=== PATIENT | male | born 1960 | race Caucasian/White ===

== ENCOUNTER 2019-12-02 09:50 | Outpatient (CLI) | payer OTHER, SELFPAY ==
[2019-12-02 10:00] VITALS: PULSE 71; O2SAT 93
[2019-12-02 10:05] VITALS: PULSE 102; O2SAT 89
[2019-12-02 10:15] VITALS: PULSE 74; O2SAT 93
--- NOTE | 2019-12-02 10:34 | HOMEO2EVAL ---
Home Oxygen Evaluation RC: Home Oxygen (O2) Evaluation Start: 12/02/19 10:31 Freq: Status: Active Protocol: RPE Activity Type Activity Date Activity User E-Sign Co-Sign Detail Recorded Client Recorded Date Recorded By Document 12/02/19 10:00 DJO [id number] 12/02/19 10:34 DJO Document 12/02/19 10:05 DJO [id number] 12/02/19 10:34 DJO Document 12/02/19 10:15 [email or web address] [id number] 12/02/19 10:34 DJO 12/02/19 12/02/19 12/02/19 10:00 10:05 10:15 Home O2 Evaluation Test Phase Resting Exercise Resting Oxygen Delivery Room Air Room Air Room Air Pulse Oximetry (90-100 %) 93 89 L 93 Pulse Rate (60-100 beats/min) 71 102 H 74 Activity Tolerance Good Ambulation Distance (feet) 1,000 Treatment Charges O2 Evaluation
== END 2019-12-02 09:51 | disposition home or self-care (01) ==
LOC: ANHPFT 09:58
PROVIDERS: PCP Family Medicine; Visit Provider Nurse Practitioner Family
DX: R09.02 Hypoxemia (principal)
CPT/HCPCS: 94618

== ENCOUNTER 2020-09-07 15:13 | Outpatient (CLI) | payer OTHER, SELFPAY ==
--- NOTE | ~2020-09-07 | US_ITS ---
US retroperitoneal comp 09/07/2020 16:15 Procedure: Realtime transabdominal ultrasound of the kidneys and bladder. Indication: Chronic kidney disease stage III Comparison: No prior studies for comparison. Findings: Renal echotexture is normal bilaterally without hydronephrosis, contour deforming mass or r enal calculus. The right kidney measures 10.3 cm and left kidney measures 10.1 cm. Enlarged prostate gland. Bladder is unremarkable, although not well distended. Impression: 1: Unremarkable renal ultrasound. No stones, masses or hydronephrosis. 2: Enlarged prostate gland. Reviewed, dictated and finalized at location A. [facility] Impression: 1: Unremarkable renal ultrasound. No stones, masses or hydronephrosis. 2: Enlarged prostate gland.
== END 2020-09-07 15:14 | disposition home or self-care (01) ==
PROVIDERS: PCP Family Medicine; Visit Provider Internal Medicine Nephrology
DX: N18.32 Chronic kidney disease, stage 3b (principal); N40.0 Benign prostatic hyperplasia without lower urinary tract symptoms
CPT/HCPCS: 76770

== ENCOUNTER 2021-09-04 02:23 | Day surgery (SDC) | payer OTHER, SELFPAY ==
[2021-08-29 14:33] VITALS: BMI 34.7
[2021-09-04 12:21] VITALS: BP 166/92; PULSE 74; RESP 18; TEMP 36.3; O2SAT 96
[2021-09-04] MEDS: LACTATED RINGERS 1,000 ML 150 ML IV CONT (12:37)
--- NOTE | 2021-09-04 12:37 | WPDANESEPPF ---
Anes - Initial Pre Proc Eval Procedure: Operation Date: 09/04/21 13:00 Proposed Procedures p Screening Colonoscopy - Ad Hartman MD Date/Time: 09/04/21 12:37 Surgeon: Ad Hartman MD Pre Op Diagnosis: neoplasm screening Patient Data Age: 61 Gender: M Height: 1.83 m Weight: 113.7 kg Last Vital Signs Temp 36.3 C L 09/04/21 12:21 Pulse 74 09/04/21 12:21 Resp 18 09/04/21 12:21 BP 166/92 H 09/04/21 12:21 Pulse Ox 96 09/04/21 12:21 Allergies Allergy/AdvReac Type Severity Reaction Status Date / Time No Known Allergies Allergy Verified 09/04/21 12:18 Home Medications Medication Instructions Recorded Confirmed Type apixaban 5 mg tablet 5 mg PO BID 07/28/20 08/29/21 History aspirin 81 mg tablet,delayed 81 mg PO DAILY 07/28/20 08/29/21 History release fenofibrate 160 mg tablet 160 mg PO DAILY 07/28/20 08/29/21 History lisinopril 20 mg tablet 20 mg PO DAILY 07/28/20 08/29/21 History loratadine 10 mg capsule 10 mg PO DAILY 07/28/20 08/29/21 History pantoprazole 40 mg tablet,delayed 40 mg PO QAM 07/28/20 08/29/21 History release sildenafil 100 mg tablet See Rx Instructions .ROUTE 08/30/20 08/29/21 Rx .COMPLEX PRN #30 tablet fluticasone fur. 100 mcg-umeclid 1 inh INHALATION DAILY #60 ea 03/29/21 08/29/21 Rx 62.5 mcg-vilant 25 mcg inhalat.powder atorvastatin 40 mg tablet 40 mg PO QHS 07/18/21 08/29/21 History evolocumab 140 mg/mL subcutaneous 140 mg SUBCUT .[id number] ml 07/18/21 08/29/21 History syringe metoprolol succinate 100 mg 100 mg PO DAILY 07/18/21 08/29/21 History tablet,extended release 24 hr triamcinolone acetonide 0.1 % 1 applic TOPICAL BID #80 gm 07/18/21 08/29/21 Rx topical cream albuterol sulfate 90 mcg/actuation 1 - 2 inh INHALATION Q4-6H PRN 90 08/28/21 08/29/21 Rx aerosol inhaler Days #25.5 g Patient hx anesthesia problems: none Family hx anesthesia problems: none Results Review: All pre-operative results and documents have been reviewed as part of the pre-operative evaluation. [facility] Past Medical History Medical History COPD (chronic obstructive pulmonary disease) Heart abnormality Hypersomnia Hypoxia Non-small cell lung cancer Tobacco abuse Surgical History Surgical History History of cardiac radiofrequency ablation (RFA) 2020 History of coronary artery stent placement Family History Family History Mother Family history of cardiovascular disease Grandparent Cerebrovascular accident Sibling Cerebrovascular accident Family history of gynecological problem Father Patient's father is in good health Other Family history of anemia Hypertension Social History Social History Smoking packs per day: 1.25 Smoking cigarettes per day: 25.0 Years smoked: 40 Smoking pack-years: 50.00 Smoking status: Former smoker Tobacco type: cigarettes Second hand tobacco smoke exposure: No Smoking end date: 03/23/18 Alcohol intake: current Drinks per week: 1 Substance use: never Substance use type: does not use Living arrangements: with family Gender identity (if verbalized by the patient): Male Spiritual care concerns: No Agree to blood products: Yes Anes - Eval Final PreProcedure Day of Procedure 09/04/21 12:37 Patient weight: obese Heart: regular rate and rhythm Lungs: clear to auscultation Airway: Mallampati scale class II Neurological: alert and oriented Last oral intake: >/= 8 hours ASA classification: IV Emergent: no Anesthetic plan: proceed Anesthesia type and monitoring: general GIVS and standard monitoring Results Review: All pre-operative results and documents have been reviewed as part of the pre-operative evaluation. Informed Consent: The patient
--- NOTE | 2021-09-04 12:49 | PM.HPGS ---
History of Present Illness History of Present Illness Consent: Risks, benefits, and alternatives have been discussed and questions answered. Patient agrees to proceed with procedure. Chief complaint: neoplasm screening Narrative: Scott Zee is a 61 year old male here for first screening colonoscopy Review of Systems Constitutional: Constitutional: Denies headache(s) and Denies weakness Eyes: Eyes: Denies blurry vision ENT: Reports Normal hearing present, Denies headache(s) and Denies neck pain Cardiovascular: Cardiovascular: Denies chest pain and Denies dyspnea Respiratory: Respiratory: Denies dyspnea Gastrointestinal: Gastrointestinal: Reports no additional gastrointestinal complaints Genitourinary: Genitourinary: Denies dysuria Musculoskeletal: Musculoskeletal: Denies neck pain Integumentary/Breasts: Skin/Breast: Denies dry skin Neurologic: Reports Normal hearing present, Denies headache(s) and Denies weakness Psychiatric: Psychiatric: Denies anxiety Endocrine: Endocrine: Denies change in body appearance Hematologic/Lymphatic: Hematologic/Lymphatic: Denies easy bleeding Allergic/Immunologic: Allergic/Immunologic: Denies urticaria PMFSH Past Medical History Medical History COPD (chronic obstructive pulmonary disease) Heart abnormality Hypersomnia Hypoxia Non-small cell lung cancer Tobacco abuse Surgical History Surgical History History of cardiac radiofrequency ablation (RFA) 2020 History of coronary artery stent placement Family History Family History Mother Family history of cardiovascular disease Grandparent Cerebrovascular accident Sibling Cerebrovascular accident Family history of gynecological problem Father Patient's father is in good health Other Family history of anemia Hypertension Social History Social History Smoking packs per day: 1.25 Smoking cigarettes per day: 25.0 Years smoked: 40 Smoking pack-years: 50.00 Smoking status: Former smoker Tobacco type: cigarettes Second hand tobacco smoke exposure: No Smoking end date: 03/23/18 Alcohol intake: current Drinks per week: 1 Substance use: never Substance use type: does not use Living arrangements: with family Gender identity (if verbalized by the patient): Male Spiritual care concerns: No Agree to blood products: Yes Meds Home Medications and Allergies Home Medications Medication Instructions Recorded Confirmed Type apixaban 5 mg tablet 5 mg PO BID 07/28/20 08/29/21 History aspirin 81 mg tablet,delayed 81 mg PO DAILY 07/28/20 08/29/21 History release fenofibrate 160 mg tablet 160 mg PO DAILY 07/28/20 08/29/21 History lisinopril 20 mg tablet 20 mg PO DAILY 07/28/20 08/29/21 History loratadine 10 mg capsule 10 mg PO DAILY 07/28/20 08/29/21 History pantoprazole 40 mg tablet,delayed 40 mg PO QAM 07/28/20 08/29/21 History release sildenafil 100 mg tablet See Rx Instructions .ROUTE 08/30/20 08/29/21 Rx .COMPLEX PRN #30 tablet fluticasone fur. 100 mcg-umeclid 1 inh INHALATION DAILY #60 ea 03/29/21 08/29/21 Rx 62.5 mcg-vilant 25 mcg inhalat.powder atorvastatin 40 mg tablet 40 mg PO QHS 07/18/21 08/29/21 History evolocumab 140 mg/mL subcutaneous 140 mg SUBCUT .[id number] ml 07/18/21 08/29/21 History syringe metoprolol succinate 100 mg 100 mg PO DAILY 07/18/21 08/29/21 History tablet,extended release 24 hr triamcinolone acetonide 0.1 % 1 applic TOPICAL BID #80 gm 07/18/21 08/29/21 Rx topical cream albuterol sulfate 90 mcg/actuation 1 - 2 inh INHALATION Q4-6H PRN 90 08/28/21 08/29/21 Rx aerosol inhaler Days #25.5 g Allergies Allergy/AdvReac Type Severity Reaction Status Date / Time No Known Allergies Allergy Verified 09/04/21 12:18
[2021-09-04 13:11] VITALS: BP 133/81; PULSE 66; RESP 11; O2SAT 97
[2021-09-04 13:21] VITALS: BP 116/80; PULSE 69; RESP 20; O2SAT 95
[2021-09-04 13:31] VITALS: BP 151/95; PULSE 63; RESP 21; O2SAT 96
== END 2021-09-04 13:41 | disposition home or self-care (01) ==
PROVIDERS: PCP Family Medicine; Visit Provider Internal Medicine Gastroenterology
PROC: 0DJD8ZZ Inspection of Lower Intestinal Tract, Via Natural or Artificial Opening Endoscopic (ICD-10-PCS; CPT 45378; principal; 2021-09-04 13:00)
DX: Z12.11 Encounter for screening for malignant neoplasm of colon (principal); D12.2 Benign neoplasm of ascending colon; D12.3 Benign neoplasm of transverse colon; K57.30 Diverticulosis of large intestine without perforation or abscess without bleeding; K64.8 Other hemorrhoids; C34.90 Malignant neoplasm of unspecified part of unspecified bronchus or lung; J44.9 Chronic obstructive pulmonary disease, unspecified; R09.02 Hypoxemia; Z95.5 Presence of coronary angioplasty implant and graft; Z87.891 Personal history of nicotine dependence
CPT/HCPCS: 45385; 88305; J2704; J7120

== ENCOUNTER 2023-07-07 13:03 | Emergency (ER) | payer OTHER, SELFPAY ==
--- NOTE | ~2023-07-07 | CT_ITS ---
EXAMINATION: CT facial bones w con DATE: 07/07/2023 15:30 INDICATION: Right forehead swelling TECHNIQUE: Computed tomography (CT) of the facial bones and maxillofacial region was performed with 7 5 mL Omnipaque-350 intravenous contrast. Sagittal and coronal reconstructions were obtained. Automate d exposure control and iterative reconstruction technique were employed. The dose-length product was 631.58 mGy-cm. COMPARISON: None. FINDINGS: Right frontal scalp soft tissue swelling with increased density in the deeper tissues suggesting a he matoma. No fracture of the visualized calvarium or of the maxillofacial bones. No peripherally enhanc ing abscess. Changes of bilateral intraocular lens replacement. Orbits are otherwise normal. Mucosal thickening in the right ethmoid and bilateral frontal sinuses. The maxillary teeth are all absent as nearly all of the mandibular molars and premolars. Is a small residual apical fragment of the left fi rst mandibular premolar with surrounding periapical lucency. The remaining mandibular incisors and ca nines demonstrate multiple dental caries. Atherosclerotic calcification without hemodynamically signi ficant stenosis at the bilateral carotid siphons. Left vertebral artery is dominant. Visualized porti on of brain is unremarkable. IMPRESSION: 1. Focal soft tissue swelling involving the deep right frontal scalp suggesting a posttraumatic hemat brooks. Correlate for history of recent trauma. No fracture. Reviewed, dictated and finalized at location A. IMPRESSION: 1. Focal soft tissue swelling involving the deep right frontal scalp suggesting a posttraumatic hematoma. Correlate for history of recent trauma. No fracture.
[2023-07-07 13:12] VITALS: BP 171/87; PULSE 88; RESP 20; TEMP 36.3; O2SAT 96
[2023-07-07 14:33] LABS: Basophils Percent Auto 0.4 % (0.2-1.2); Eosinophils Absolute Auto 0.1 K/mm3 (0-0.3); Eosinophils Percent Auto 0.7 % (0-4.4); Hematocrit 46.6 % (42.0-52.0); Immature Granulocyte Absolute 0.06 K/mm3 (0.00-0.031); Immature Granulocyte Percent A 0.5 % (0-0.5); Lymphocytes Absolute Auto 1.11 K/mm3 (0.9-3.2); Lymphocytes Percent Auto 10.1 % (18.3-44.2); Mean Corpuscular HGB Conc 32.2 g/dl (32-36); Mean Corpuscular Hemoglobin 30.8 pg (26-34); Mean Corpuscular Volume 95.7 fl (80-100); Mean Platelet Volume 9.9 fl (7.4-10.4); Monocytes Absolute Auto 0.8 K/mm3 (0.1-0.6); Monocytes Percent Auto 7.6 % (2.6-8.5); Neutrophils Absolute Auto 8.9 K/mm3 (1.3-6.7); Neutrophils Percent Auto 80.7 % (45.5-73.1); Platelet Count Result 213 k/mm3 (150-375); Red Blood Count 4.87 M/mm3 (4.6-6.20); Red Cell Distribution Width 12.6 % (11.5-14.5)
[2023-07-07 14:45] LABS: INR 1.4; Prothrombin Time 17.8 Seconds (11.1-14.7)
[2023-07-07 14:46] LABS: Partial Thromboplastin Time 32.4 SECONDS (22.3-36.8)
[2023-07-07 15:03] LABS: Alanine Aminotransferase 23 U/L (6-50); Albumin Level 4.1 g/dL (3.5-5.1); Alkaline Phosphatase 103 U/L (38-126); Anion Gap 10 mmol/L (8-16); Aspartate Amino Transferase 27 U/L (17-59); Bilirubin,Total 1.3 mg/dL (0.2-1.3); Blood Urea Nitrogen 16 mg/dL (9-20); Calcium 9.4 mg/dL (8.4-10.2); Carbon Dioxide 25 mmol/L (22-30); Chloride 97 mmol/L (98-107); Estimated CRCL calculation 71 ml/min; Estimated Glomerular Filt Rate > 60; Glucose 347 mg/dL (65-110); Potassium 4.6 mmol/L (3.4-5.0); Sodium 132 mmol/L (137-145)
--- NOTE | 2023-07-07 15:22 | ED.SKABFB ---
HPI - Skin/Abscess/Foreign Bdy General Chief complaint: Skin/Abscess/Foreign Body Stated complaint: abscess Time Seen by Provider: 07/07/23 13:45 Source: patient and RN notes reviewed Mode of arrival: ambulatory Limitations: no limitations History of Present Illness HPI narrative: This is a 63 year old male who presents for evaluation of right forehead swelling. He states he noticed a pustule to his right forehead 1 week ago. He also reports small amount of inermittent pus drainage. He developed right forehead swelling and periorbital swelling. He reports his periorbital swelling has improved but his left forehead is still swollen and painful to touch. He denies trauma, fever, chills, nausea or vomiting. Related Data Home Medications Medication Instructions Recorded Confirmed apixaban 5 mg tablet 5 mg PO BID 07/28/20 01/24/23 aspirin 81 mg tablet,delayed 81 mg PO DAILY 07/28/20 01/24/23 release fenofibrate 160 mg tablet 160 mg PO DAILY 07/28/20 01/24/23 lisinopril 20 mg tablet 20 mg PO DAILY 07/28/20 01/24/23 loratadine 10 mg capsule 10 mg PO DAILY 07/28/20 01/24/23 pantoprazole 40 mg tablet,delayed 40 mg PO QAM 07/28/20 01/24/23 release atorvastatin 40 mg tablet 40 mg PO QHS 07/18/21 01/24/23 evolocumab 140 mg/mL subcutaneous 140 mg subcut .[id number] 07/18/21 01/24/23 syringe (Repatha Syringe) metoprolol succinate 100 mg 100 mg PO DAILY 07/18/21 01/24/23 tablet,extended release 24 hr amlodipine 10 mg tablet 10 mg PO DAILY 08/27/22 01/24/23 Allergies Allergy/AdvReac Type Severity Reaction Status Date / Time No Known Allergies Allergy Verified 07/07/23 13:20 Review of Systems Review of Systems: All systems reviewed & are unremarkable except as noted in HPI and below PMFSH Past Medical History Medical History (Updated 07/07/23 @ 18:44 by Willa Reilly MD) Atrial fibrillation CKD (chronic kidney disease) COPD (chronic obstructive pulmonary disease) Heart abnormality Hypersomnia Hypoxia Non-small cell lung cancer Tobacco abuse Surgical History Surgical History History of cardiac radiofrequency ablation (RFA) 2020 History of coronary artery stent placement Family History Family History Mother Family history of cardiovascular disease Grandparent Cerebrovascular accident Sibling Cerebrovascular accident Family history of gynecological problem Father Patient's father is in good health Other Family history of anemia Hypertension Social History Social History Smoking packs per day: 1.25 Smoking cigarettes per day: 25.0 Years smoked: 40 Smoking pack-years: 50.00 Smoking status: Former smoker Tobacco type: cigarettes Second hand tobacco smoke exposure: No Smoking end date: 03/23/18 Alcohol intake: current Drinks per week: 1 Substance use: never Substance use type: does not use Living arrangements: with family Occupation/Education: occupation Gender identity (if verbalized by the patient): Male Spiritual care concerns: No Agree to blood products: Yes Exam Const: General: alert Nutritional Appearance: well nourished Orientation/consciousness: patient oriented x3 Limitations: no limitations HENMT: Face/Nose/Sinus: Normal external nose present Mouth: Yes Normal oral and palatal mucosa present, Yes lip normal and Yes moist mucous membranes Course Reevaluation(s) Reevaluation #1: I Discussed with patient that he was found to have hyperglycemia suggesting diabetes. I discussed I Would start medication and he should adjust diet. He will need to follow up with primary care provider regarding diabetes. I performed I and D to his abscess. Eh was given given clindamycin prior to leaving. He was given return precautions. Date: 07/07/23 Time: 18:37 Vital Signs Vital signs: Vital
[2023-07-07 15:50] VITALS: BP 152/84; PULSE 75; RESP 19; O2SAT 96
[2023-07-07] MEDS: HYDROmorphone HCL INJ (*CRX) 1 MG/ML SYR IM (17:11)
[2023-07-07] MEDS: ONDANSETRON HCL ODT 4 MG TABLET PO (17:11)
[2023-07-07] MEDS: LIDO 1%/EPINEPHRINE 1:100,000 50 ML VIAL (17:11)
[2023-07-07 18:00] VITALS: BP 143/80; PULSE 81; RESP 14; O2SAT 93
[2023-07-07] MEDS: CLINDAMYCIN HCL 150 MG CAP 600 MG PO (18:26)
[2023-07-07] MEDS: HYDROcodone/acetaminophen (*CRX) 5-325 MG TABLET 1 TAB PO (18:27)
== END 2023-07-07 18:52 | disposition home or self-care (01) ==
PROVIDERS: Emergency Provider General Practice
DX: L02.01 Cutaneous abscess of face (principal); R73.9 Hyperglycemia, unspecified; I48.91 Unspecified atrial fibrillation; N18.9 Chronic kidney disease, unspecified; J44.9 Chronic obstructive pulmonary disease, unspecified; Z85.118 Personal history of other malignant neoplasm of bronchus and lung
CPT/HCPCS: 10061; 36415; 70487; 80053; 85025; 85610; 85730; 96372; 99284; A9270; J1170; Q9967

== ENCOUNTER 2025-09-07 01:25 | Inpatient (IN) | payer OTHER, SELFPAY ==
[2025-09-07] VITALS (45 sets, daily range): BP systolic 129–191; BP diastolic 71–112; PULSE 62–105; RESP 16–35; TEMP 36.3–37.1; O2SAT 89–98; BMI 29.7
--- NOTE | 2025-09-07 | ECHO_ITS ---
Patient Info Name: Scott Zee Age: 65 years : 1960 Gender: Male Ht: 72 in Wt: 215 lbs BSA: 2.25 m2 HR: 78 bpm BP: 155 / 88 mmHg Heart Rhythm: Sinus Rhythm Technical Quality: Good Exam Date: 09/07/2025 8:52 AM Patient Status: I Admit Date: 09/07/2025 Exam Type: CA echo dop color flow w con Complete two-dimensional, color flow and Doppler transthoracic echocardiogram is performed with contrast to opacify the left ventricle and to improve the deliniation of the left ventricle endocardial borders. Staff Referring Physician: Audra Castle MD Cheesemaker: Ananda Perales III Attending Provider: Ian Roy Contrast/Agitated Saline Contrast/Ag. Saline: Definity Amount: 2.00 ml Administered By: Ananda Perales III Existing IV Access: Yes IV Access Condition: patent with no signs of infiltration Summary 1. Left ventricular hypertrophy with normal LV dimension. 2. Mildly depressed systolic function with akinesis of the inferior wall and hypokinesis of the lateral wall. 3. Global ejection fraction visually estimates to be 40-45%. 4. Sclerotic aortic valve which is not functionally stenotic. 5. Definity contrast injected to improve image quality. Left Ventricle Left ventricular chamber dimension is normal. Left ventricular systolic function is mildly reduced, estimated at 40-45. The left ventricular diastolic function is grade I diastolic dysfunction. Right Ventricle Right ventricular chamber dimension is normal. Left Atria Left atrial chamber dimension is normal. Right Atria Right atrial chamber dimension is normal. Aortic Valve The aortic valve is trileaflet. There is mild aortic valve sclerosis. Pulmonic Valve The pulmonic valve is not well visualized. Mitral Valve The mitral valve has normal leaflets. Tricuspid Valve The tricuspid valve leaflets are normal. Pericardium/Pleural The pericardium appears normal. Aorta The aortic root size at the sinus of Valsalva is normal. Left Ventricular Outflow Tract Name Value Normal LVOT 2D LVOT Diameter 2.4 cm LVOT Doppler LVOT Peak Velocity 104 cm/s LVOT Peak Gradient 4 mmHg LVOT Mean Gradient 2 mmHg LVOT VTI 19 cm LVOT VTI/AV VTI Ratio 0.7 LVOT Stroke Volume 86 ml LVOT CO 7.1 l/min LVOT CI 3.1 l/min/m2 Pulmonic Valve Name Value Normal PV Doppler PV Peak Velocity 99 cm/s PV Peak Gradient 4 mmHg PV Mean Gradient 2 mmHg Mitral Valve Name Value Normal MV Doppler MV Peak Gradient 3 mmHg MV Mean Gradient 2 mmHg MV Area (Cont Eq VTI) 3.8 cm2 MV Diastolic Function MV E Peak Velocity 90 cm/s MV A Peak Velocity 67 cm/s MV E/A 1.3 MV Decel Time (PW) 156 ms MV Annular TDI MV E/e' (Septal) 15.4 MV E/e' (Lateral) 11.6 MV E/e' (Average) 13.5 Tricuspid Valve Name Value Normal TV Annular TDI TV Lateral Zuly s' Velocity 12.6 cm/s >=9.5 Aortic Valve Name Value Normal AV Doppler AV Peak Velocity 152 cm/s AV Peak Gradient 9 mmHg AV Mean Gradient 4 mmHg AV VTI 26 cm AV Area (Cont Eq VTI) 3.3 cm2 >=3.0 AV Area (Cont Eq Lalo) 3.1 cm2 AV DI (Lalo) 0.68 AV Regurgitation 2D LVOT Area 4.5 cm2 Ventricles Name Value Normal LV Dimensions 2D/MM IVS Diastolic Thickness (2D) 1.5 cm 0.6-1.0 LVID Diastole (2D) 5.1 cm 4.2-5.8 LVIW Diastolic Thickness (2D) 1.3 cm 0.6-1.0 LVID Systole (2D) 4.1 cm 2.5-4.0 LVOT Diameter 2.4 cm LV Mass (2D Cubed) 296.12 g 88.00-224.00 LV Mass Index (2D Cubed) 132 g/m2 49-115 Relative Wall Thickness (2D) 0.52 <=0.42 LV Fractional Shortening/Ejection Fraction 2D/MM LV Fractional Shortening (2D) 19 % 25-43 LV EF (2D Teichholz) 39 % LV Diastolic Volume (4C MOD) 141 ml LV EF (4C MOD) 42 % LV Diastolic Volume (2C MOD) 154 ml LV EF (2C MOD) 31 % LV Diastolic Volume (BP MOD) 151 ml 62-150 LV Diastolic Volume Index (BP MOD) 67 ml/m2 34-74 LV Systolic Volume (BP MOD) 98 ml 21-61 LV Systolic Volume Index (BP MOD) 44 ml/m2 11-31 LV EF (BP MOD) 35 % 52-72 LV Diastolic Length (4C) 8.3 cm LV Systolic Length (4C) 7.1 cm LV Stroke Volume (4C MOD) 60 ml Atria Name Value Normal LA Dimensions LA Volume (4C A-L) 88 ml LA Volume (BP A-L) 89 ml RA Dimensions RA Systolic Major Loving Length (4C) 5.9 cm 2.1-2.7 RA Area (4C) 20.7 cm2 <=18.0 Report Signatures
--- NOTE | ~2025-09-07 | US_ITS ---
ULTRASOUND ABDOMEN LIMITED (RIGHT UPPER QUADRANT) Clinical History: elevated LFTs Comparison: CT chest abdomen pelvis earlier same day Technique: Right upper quadrant sonography Findings: Liver: Enlarged. Echogenic. No intrahepatic biliary ductal dilatation. Normal hepatopedal flow main portal vein. Common Duct: 10 mm. Gallbladder: Stones. No wall thickening. No pericholecystic fluid. Technologist worksheet does not state if sonographic Santiago's sign exists. Pancreas: Obscured by bowel gas. IMPRESSION: 1. Hepatomegaly, with steatosis. 2. Gallstones. Reviewed, dictated and finalized at location R. PROCESSING OPERATOR
--- NOTE | ~2025-09-07 | XR_ITS ---
EXAMINATION: XR chest 1V portable DATE: 09/07/2025 03:00 INDICATION: Short of breath TECHNIQUE: A single frontal view of the chest was obtained. COMPARISON: June 04, 2019 FINDINGS: Complete opacification of the left hemithorax suggests very large effusion. Infection could be present. Right lung is marginally inflated but appears clear. Heart shadow is obscured. IMPRESSION: Large left-sided pleural effusion. Reviewed, dictated and finalized at location A. BRAKE OPERATOR
--- NOTE | ~2025-09-07 | XR_ITS ---
EXAMINATION: XR chest 1V portable DATE: 09/08/2025 07:52 INDICATION: Sepsis TECHNIQUE: A single frontal view of the chest was obtained. COMPARISON: Yesterday's chest x-ray FINDINGS: Complete opacification of the left lung field unchanged. The right lung remains clear. Heart shadow obscured. No pneumothorax or subphrenic free air seen. IMPRESSION: 1. No gross interval change from yesterday. Complete opacification of the left hemithorax. Reviewed, dictated and finalized at location A. OO TECHNICIAN
--- NOTE | ~2025-09-07 | MR_ITS ---
EXAMINATION: MR MRCP wo/w con/w 3D wo ind DATE: 09/09/2025 13:25 INDICATION: Rule out choledocholithiasis TECHNIQUE: Magnetic resonance imaging (MRI) of the abdomen was performed with and without intravenous contrast. Sequences included coronal T2-weighted FS FSE, coronal T2-weighted FSE, axial T1-weighted LAVA, coronal FS FIESTA, axial dual- echo T1-weighted SPGR, coronal lava-FLEX, sagittal T2-weighted FSE, axial T2- weighted FSE, and axial DWI. Thick-slab T2-weighted FSE images were obtained for magnetic resonance cholangiopancreatography (MRCP). Maximum intensity projection 3-D reconstructions of the volumetric data were created by the technologist. Postcontrast sequences included coronal LAVA-flex and time course of axial T1- weighted LAVA. COMPARISON: CT exam from September 07. FINDINGS: Fatty liver changes present as well as mild enlargement liver. The liver measures 22.5 cm in the cephalocaudal dimension. Numerous gallstones are seen within the gallbladder. No gross wall thickening or pericholecystic fluid. The common bile duct is within normal limits measuring 6 mm. The pancreatic duct measures up to 2 mm, also normal in size. On image 30 series 6, a tiny filling defect appears to be present within the intrapancreatic portion of the common bile duct. This may also be seen on image 16 series 8. See also images 63 through 70 of series 11, the filling defect is seen on MRCP images within the intrapancreatic portion of the common bile duct just above the ampulla. This measures about 6 mm. Mild infiltrative or inflammatory appearing changes about the pancreas present. No discrete pancreatic lesion or mass seen. No pseudocyst or drainable fluid collection seen. Simple appearing left renal cyst. The duodenum sweeps to the left of midline. IMPRESSION: 1. Findings above are suggestive of approximately 6 mm size stone in the distal common bile duct just before the ampulla. 2. Findings about the pancreas consistent with mild pancreatitis. No discrete pancreatic lesion or mass seen. 3. Hepatomegaly with fatty liver changes. 4. Other findings as above. Reviewed, dictated and finalized at location A. CATEGORICAL PRESCHOOL TEACHER IMPRESSION: 1. Findings above are suggestive of approximately 6 mm size stone in the distal common bile duct just before the ampulla. 2. Findings about the pancreas consistent with mild pancreatitis. No discrete p ancreatic lesion or mass seen. 3. Hepatomegaly with fatty liver changes. 4. Other findings as above.
--- NOTE | ~2025-09-07 | CT_ITS ---
EXAMINATION: CTA chest abdomen pelvis DATE: 09/07/2025 03:24 INDICATION: Abdominal pain and distention. TECHNIQUE: Computed tomographic angiography (CTA) of the chest, abdomen, and pelvis was performed with 100 mL Omnipaque-350 intravenous contrast. Automated exposure control and iterative reconstruction technique were employed. The dose- length product was 923.95 mGy-cm. Maximum intensity projection 3D-r econstructions of the aorta and other arteries were constructed by the technologist on a separate workstation. COMPARISON: Chest CT 05/14/2019 FINDINGS: CHEST CTA: There is mild emphysema. There is mild atelectasis in right lung. There is complete collapse of left lung. There is a small left pleural effusion with pleural thickening. There is no pulmonary embolus. There is mild aortic atherosclerosis. There is moderate thoracic spondylosis. There is mild chronic a nterior wedging of multiple lower thoracic vertebral bodies. ABDOMEN AND PELVIS CTA: The liver and spleen are normal. There are gallstones in the gallbladder, which is normal in size. There is edema in the head of the pancreas. There is fat stranding and small volume of free fluid in the retroperitoneum, consistent with acute interstitial pancreatitis. The adrenal glands are normal. There is cortical thinning of the kidneys. There is a 14 mm stone in left kidney. The prostate is moderately enlarged. There is diverticulosis of the colon without evidence of diverticulitis. The appendix is normal. 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 There is no significant stenosis of superior mesenteric artery, the renal arteries, or inferior mesenteric artery. There is a stent in left common iliac artery with moderate intrastent stenosis. There are no pathologically enlarged lymph nodes. There are chronic bilateral L5 pars defects. There is 4 mm anterolisthesis of L5 on S1. There is mild lumbar spondylosis. IMPRESSION: 1. Complete collapse of left lung. 2. Small left pleural effusion with pleural thickening. 3. Acute interstitial pancreatitis. 4. Severe stenosis of celiac axis. 5. Stent in left common iliac artery with moderate intrastent stenosis. Reviewed, dictated and finalized at location E. BENDING MACHINE OPERATOR
--- NOTE | 2025-09-07 02:25 | ECG_ITS ---
Test Date: 2025-09-07 02:30:22 Measurements Intervals [place] Rate: 74 P: 73 ND: 140 QRS: -17 QRSD: 101 T: 85 QT: 360 QTc: 401 Interpretive Statements SINUS RHYTHM WITH OCCASIONAL SUPRAVENTRICULAR PREMATURE COMPLEXES POSSIBLE ANTERIOR MYOCARDIAL INFARCTION , OF INDETERMINATE AGE INFERIOR ST ELEVATION MYOCARDIAL INFARCT, PROBABLY RECENT RECIPROCAL ST DEPRESSION IN HIGH LATERAL LEADS BASELINE ARTIFACT- I, II, AVR, AVL, AVF, V5-V6 ABNORMAL ECG No previous ECG available for comparison Electronically Signed On 09-07-2025 06:17:52 [employer] ADMINISTRATOR by Jt Post D.O.
--- NOTE | 2025-09-07 02:47 | ECG_ITS ---
Test Date: 2025-09-07 02:43:13 Measurements Intervals [place] Rate: 87 P: 6 UT: 154 QRS: 1 QRSD: 103 T: -60 QT: 349 QTc: 421 Interpretive Statements SINUS RHYTHM INFERIOR INFARCT, PROBABLY RECENT ST-T WAVE ABNORMALITY IN HIGH LATERAL LEADS- CONSIDER ISCHEMIA BASELINE ARTIFACT- I, II, III, AVR, AVL, AVF, V1-V6 ABNORMAL ECG Compared to ECG 09/07/2025 02:30:22 NO SIGNIFICANT CHANGE Electronically Signed On 09-07-2025 06:19:18 AVID EDITOR by Jt Post D.O.
[2025-09-07 02:53] LABS: Hematocrit 52.5 % (42.0-52.0); Hemoglobin 16.8 g/dL (14.0-18.0); Immature Granulocyte Percent A 1.3 % (0-0.5); Lymphocytes Absolute Auto 1.40 K/mm3 (0.9-3.2); Mean Corpuscular HGB Conc 32.0 g/dl (32-36); Mean Corpuscular Hemoglobin 29.5 pg (26-34); Mean Corpuscular Volume 92.3 fl (80-100); Nucleated Red Blood Cells Absolute Auto 0.000 K/mm3 (0.0-0.012); Nucleated Red Blood Cells Perc 0.0 % (0.0-0.2); Platelet Count Result 343 k/mm3 (150-375); Red Blood Count 5.69 M/mm3 (4.6-6.20); White Blood Count 28.0 K/mm3 (4.5-10.0)
--- NOTE | 2025-09-07 02:55 | ED.ABDPAIN ---
HPI - Abdominal Pain General Chief Complaint: Nausea/Vomiting/Diarrhea Stated Complaint: Difficulty breathing Time Seen by Provider: 09/07/25 02:43 History of Present Illness HPI narrative: 65-year-old male with a past medical history including lung cancer status post resection and chronic atelectasis of his left lung, history of coronary artery disease with 5 stents, CKD, hypertension. History of AFib on Eliquis b.i.d.. Patient presents to the emergency department today for complaints of lower abdominal bloating, gaseous abdominal pain in the lower quadrants and some shortness of breath that started today. He states that he is having some distension is lower abdominal regions but not having any difficulties with bowel movements and going to the bathroom without difficulty. He states that these have been going on for last several weeks and the difficulty in breathing is attributed to lying flat difficulties secondary to his abdominal distension causing pain. Denies any chest pain or back pain. No nauseousness presently but has vomited several times over last few weeks. Denies any leg swelling or any changes to his health recently with new medications or recent hospitalizations. Related Data Home Medications ?Medication ?Instructions ?Recorded ?Confirmed ?Last Taken ?Type apixaban 5 mg tablet 5 mg PO BID 07/28/20 08/27/25 09/01/21 History aspirin 81 mg tablet,delayed 81 mg PO DAILY 07/28/20 08/27/25 09/03/21 History release loratadine 10 mg capsule 10 mg PO DAILY 07/28/20 08/27/25 09/03/21 History pantoprazole 40 mg tablet,delayed 40 mg PO QAM 07/28/20 08/27/25 09/03/21 History release atorvastatin 40 mg tablet 40 mg PO QHS 07/18/21 08/27/25 09/03/21 History evolocumab 140 mg/mL subcutaneous 140 mg subcut .[id number] 07/18/21 08/27/25 Unknown History syringe (Repatha Syringe) metoprolol succinate 100 mg 100 mg PO DAILY 07/18/21 08/27/25 09/04/21 History tablet,extended release 24 hr amlodipine 10 mg tablet 10 mg PO DAILY 08/27/22 08/27/25 Unknown History empagliflozin 25 mg tablet 25 mg PO DAILY 08/21/23 08/27/25 Unknown History (Jardiance) lisinopril 40 mg tablet 40 mg PO DAILY 09/21/24 08/27/25 Unknown History Allergies Allergy/AdvReac Type Severity Reaction Status Date / Time No Known Allergies Allergy Verified 09/07/25 01:26 Review of Systems Review of Systems: As reviewed above in HPI All systems reviewed & are unremarkable except as noted in HPI and below [facility] Past Medical History Medical History (Updated 09/07/25 @ 06:14 by Kenneth Valerio MD) Atrial fibrillation CKD (chronic kidney disease) Heart abnormality Hypoxia Tobacco abuse Hypersomnia Non-small cell lung cancer COPD (chronic obstructive pulmonary disease) Surgical History Surgical History History of cardiac radiofrequency ablation (RFA) 2020 History of coronary artery stent placement Family History Family History Mother Family history of cardiovascular disease Grandparent Cerebrovascular accident Sibling Cerebrovascular accident Family history of gynecological problem Father Patient's father is in good health Other Family history of anemia Hypertension Social History Social History Social History: Caffeine-occasionally Smoking packs per day: 1.25 Smoking cigarettes per day: 25.0 Years smoked: 40 Smoking pack-years: 50.00 Smoking status: Former smoker Tobacco type: cigarettes Second hand tobacco smoke exposure: No Smoking end date: 03/23/18 Alcohol intake: current Drinks per week: 1 Alcohol use details: occasionally Substance use: never Substance use type: does not use Living arrangements: with family Occupation/Education: occupation Gender identity (if verbalized by the patient): Male Spiritual care concerns: No Agree to blood products: Yes Exam Narrative: GENERAL: overall well-appearing not any distress. Awake and answering all questions appropriately. HEAD: [Normocephalic, atraumatic.] EYES: [PERRLA and EOMI.] ENT: Nares clear, no rhinorrhea or epistaxis. Mucous membranes moist. NECK: Supple. CHEST: asymmetric breath sounds with clear right breath sounds, diminished left breath sounds. No wheezing. HEART: [Regular rate and rhythm]. No murmur heard. [Normal peripheral pulses.] ABDOMEN: Distended and tender lower abdominal examination without any rebound or guarding. No rigidity or peritonitis. No overlying skin discoloration EXTREMITIES: Normal range of motion. [No edema.] SKIN: Warm, dry, no rash. NEURO: [No focal deficits]. Alert and oriented [x3.] PSYCH: [Normal mood and affect.] Course Vital Signs Vital signs: Vital Signs Temperature 36.3 C L 09/07/25 02:17 Pulse Rate 78 09/07/25 02:17 Respiratory Rate 20 09/07/25 02:17 Blood Pressure 159/85 H 09/07/25 02:17 Pulse Oximetry 96 09/07/25 02:17 Temperature 36.3 C L 09/07/25 02:17 Pulse Rate 78 09/07/25 04:30 Respiratory Rate 23 H 09/07/25 04:30 Blood Pressure 155/88 H 09/07/25 04:30 Pulse Oximetry 94 09/07/25 04:30 MDM MDM Narrative Medical decision making narrative: 65-year-old male with a past medical history including lung cancer status post resection and chronic atelectasis of his left lung, history of coronary artery disease with 5 stents, CKD, hypertension. History of AFib on Eliquis b.i.d.. Patient presents to the emergency department today for complaints of lower abdominal bloating, gaseous abdominal pain in the lower quadrants and some shortness of breath that started today. He states that he is having some distension is lower abdominal regions but not having any difficulties with bowel movements and going to the bathroom without difficulty. He states that these have been going on for last several weeks and the difficulty in breathing is attributed to lying flat difficulties secondary to his abdominal distension causing pain. Denies any chest pain or back pain. No nauseousness presently but has vomited several times over last few weeks. Denies any leg swelling or any changes to his health recently with new medications or recent hospitalizations. Patient does have a tender abdominal examination in the lower abdominal quadrants with some distension but no signs of peritonitis rigidity or guarding. He is afebrile, saturating well on room air, no tachypnea or tachycardia. Mildly elevated blood pressure. He does have several chronic medical conditions which raises the differential. Suspect gastroenteritis, gastritis, small bowel obstruction, diverticulitis, appendicitis. Possible suspicion cardiac or vascular anomalies in nature as he does have stents in his heart. EKG troponin chest x-ray lactic acid and CTA PE with abdomen protocol obtained at this time for further evaluation given the odd chest x-ray and EKG in triage which shows ST segment abnormalities in deep Q-waves. Low suspicion acute infarct given the lack of any chest pain in complaints of mostly localized to his lower abdominal region but will run this EKG by Cardiology for recommendations. Repeat EKG looks worse with inferior elevations into in AVF as well as reciprocal depressions in 1 and aVL. Possibly chronic with deep Q-waves though. I discussed the case with Interventional Cardiology Dr. Roy over the phone. Confirms that this is an odd and concerning looking EKG and would benefit from catheterization to rule out acute MT. We discussed patient's presentation with lower abdominal pain and complaints of shortness of breath with laboratory studies pending. Decision at this time was to scan the patient with CTA protocol to rule out anything in the chest abdomen or pelvis that could point towards another potential etiology and of no findings he would need to go to chemical laboratory scientist. Recommendations at that time were also to give sublingual nitroglycerin to see if his abdominal pain resolved. He is hypertensive but otherwise vital signs are stable. Called CT scan for emergent imaging at this time. Laboratory studies still pending but so far results point towards potential GI pathology with elevated LFTs and elevated white count but cannot exclude concomitant cardiac issue or vascular anomaly that we are still pending workup upon. Will obtain repeat EKG and re-discuss with Cardiology after results. Patient had no response to 2 sublingual nitroglycerins. Blood pressure 151/86. Still having abdominal pain. We went over the imaging results in real-time as we do not have a radiologist at this time. [facility] called to make critical read in a timely manner. I do not appreciate any thoracic aneurysm, dissection, or any pericardial effusion. He has what appears to be old aortic calcified disease or plaques in his lower abdominal region but no tianna dissection I could appreciate. His gallbladder also appears to have a thick wall with a stone. His LFTs are elevated as well as a white count but his troponin is largely elevated 17.5 and his serial EKG is acutely worsening with persistent ST segment derangements more clearly identified. Contacted Dr. Roy once again from Interventional Cardiology at this time and after discussion we activated chemical laboratory scientist for emergent catheterization to rule out the most critical cause of his symptoms and then anything else can be taken care of inpatient afterwards. I did discuss with Dr. Roy over the phone the wetread CT findings per my interpretation and that we do not have a radiologist at this time reading, in addition we discussed the lab findings with LFTs, WBC, and trop, and clinical exam at bedside. Decision to proceed with chemical laboratory scientist and ICU admission from there. I discussed this with the family member and the patient at bedside. They expressed understanding the need for catheterization and next steps going forward to rule out cardiac anomaly followed by remaining workup as needed as he very well might have multiple issues going on at the same time. Differential Diagnosis Differential Diagnosis: Suspect gastroenteritis, gastritis, small bowel obstruction, diverticulitis, appendicitis. Possible suspicion cardiac or vascular anomalies in nature as he does have stents in his heart. Lab Data MDM Lab Attestation statement: I personally reviewed the patient's lab results. 09/07/25 02:47 09/07/25 02:47 Labs: Lab Results 09/07/25 Range/Units 02:47 WBC 28.0 H (4.5-10.0) K/mm3 RBC 5.69 (4.6-6.20) M/mm3 Hgb 16.8 (14.0-18.0) g/dL Hct 52.5 H (42.0-52.0) % MCV 92.3 (80-100) fl MCH 29.5 (26-34) pg MCHC 32.0 (32-36) g/dl RDW 14.1 (11.5-14.5) % Plt Count 343 D (150-375) k/mm3 MPV 9.2 (7.4-10.4) fl Immature Gran % (Auto) 1.3 H (0-0.5) % Neut % (Auto) 90.6 H (45.5-73.1) % Lymph % (Auto) 5.0 L (18.3-44.2) % Edwards % (Auto) 2.9 (2.6-8.5) % Eos % (Auto) 0.0 (0-4.4) % Baso % (Auto) 0.2 (0.2-1.2) % Lymph # (Auto) 1.40 (0.9-3.2) K/mm3 Edwards # (Auto) 0.8 H (0.1-0.6) K/mm3 Eos # (Auto) 0.0 (0-0.3) K/mm3 Baso # (Auto) 0.1 (0.0-0.1) K/mm3 Abs Immat Gran (auto) 0.36 H (0.00-0.031) K/mm3 Absolute Neuts (auto) 25.4 H (1.3-6.7) K/mm3 Absolute Nucleated RBC 0.000 (0.0-0.012) K/mm3 Nucleated RBC % 0.0 (0.0-0.2) % PT 16.7 H (11.1-14.7) Seconds INR 1.4 APTT 27.2 (22.3-36.8) Seconds Sodium 137 (137-145) mmol/L Potassium 4.8 (3.4-5.0) mmol/L Chloride 98 (98-107) mmol/L Carbon Dioxide 29 (22-30) mmol/L Anion Gap 10 (4-12) mmol/L BUN 32 H D (9-20) mg/dL Creatinine 1.49 H (0.7-1.3) mg/dL Estim Creat Clear Calc 50 ml/min Estimated GFR 48 L (59 - ) Glucose 193 H (65-110) mg/dL Lactic Acid 2.0 (0.7-2.0) mmol/L Calcium 9.7 (8.4-10.2) mg/dL Total Bilirubin 4.8 H (0.2-1.3) mg/dL AST 854 H (17-59) U/L ALT 561 H (6-50) U/L Alkaline Phosphatase 218 H (38-126) U/L Troponin I 17.500 H* (0.000-0.034) ng/mL Total Protein 7.2 (6.3-8.2) g/dL Albumin 4.1 (3.5-5.1) g/dL Lipase 17645 H (23-300) U/L Imaging Data Attestation: I personally reviewed and interpreted this imaging study as follows: My impression: No acute dissection or aneurysm. No pericardial effusion. Gallstones, some colitis, no bowel obstruction. Atherosclerotic disease. Critical Care Time Critical Care Time Critical Care Time: Yes Time Type: Intermittent Initial evaluation, discuss w/ involved parties, attempting to gather old records: 10 minutes Documenting medical record: 5 minutes Review of results (EKG's, labs, imaging): 5 minutes Serial repeat bedside evaluation: 10 minutes Discussing case with multiple memebers of the care team and consultants: 20 minutes Total Critical Care Time: 50 Discharge Plan Discharge Clinical Impression: ST elevation MT (STEMI), Abdominal pain, Elevated LFTs, Elevated WBCs, Elevated troponin Patient Disposition: Still a Patient Condition: Serious
--- NOTE | 2025-09-07 03:00 | ECG_ITS ---
Test Date: 2025-09-07 02:59:00 Measurements Intervals [place] Rate: 77 P: 14 ND: 157 QRS: 0 QRSD: 99 T: 52 QT: 368 QTc: 419 Interpretive Statements SINUS RHYTHM LEFT VENTRICULAR HYPERTROPHY AND ST-T CHANGE INFERIOR INFARCT, PROBABLY RECENT BASELINE ARTIFACT- I, II ABNORMAL ECG Compared to ECG 09/07/2025 02:43:13 NO SIGNIFICANT CHANGE Electronically Signed On 09-07-2025 06:20:23 [employer] by Jt Post D.O.
[2025-09-07 03:04] LABS: INR 1.4; Prothrombin Time 16.7 Seconds (11.1-14.7)
[2025-09-07 03:05] LABS: Partial Thromboplastin Time 27.2 Seconds (22.3-36.8)
--- OUTSIDE RECORDS SUMMARY | 2025-09-07 03:07 | XMS_ITS | Clinical Summary ---
Author Organization [facility] Address [address] [place] [id number] Phone Care Team Providers Care Office Clerk Assistant Name Role Phone Unavailable Primary Care Provider Unavailabl e Allergies No known active allergies Medications albuterol HFA (PROVENTIL HFA) 108 (90 Base) MCG/ACT inhaler Inhale 2 puffs Active apixaban (ELIQUIS) 5 MG tablet Take 5 mg by mouth 2 times daily 05/18/2020 Active Aspirin Low Dose 81 MG EC tablet 06/21/2020 Act nunu fenofibrate (TRIGLIDE) 160 MG tablet 08/05/2020 Active Trelegy Ellipta 100-62.5-25 MCG/INH aerosol powder INHALE 1 PUFF ONCE DAILY 08/24/2020 Active lisinopril (PRINIVIL) 20 MG tablet 08/26/2020 Active pantoprazole (PROTONIX) 40 MG EC tablet 07/25/2020 Active Repatha SureClick 140 MG/ML solution auto-injector 10/31/2020 Activ e sildenafil (VIAGRA) 100 MG tablet 08/30/2020 Active atorvastatin (LIPITOR) 40 MG tablet 07/12/2021 Active triamcinolone (KENALOG) 0.1 % cream 07/18/2021 Active metoprolol succinate XL (TOPROL-XL) 100 MG 24 hr tablet 07/12/2021 Act nunu mupirocin (BACTROBAN) 2 % ointment 08/11/2021 Active amLODIPine (NORVASC) 10 MG tablet Take 10 mg by mouth 1 (one) time each day 07/25/2022 Active Active Problems Problem Noted Date Diagnosed Date Effusion of right knee 11/13/2021 Injury of right knee 11/13/2021 Pain of knee region 11/13/2021 Primary osteoarthritis of right knee 11/13/2021 Radiotherapy follow-up 04/26/2021 H/O: atrial fibrillation 07/18/2020 H/O: cardiovascular disease 07/18/2020 Typical atrial flutter 05/20/2020 Edema of lower extremity 04/09/2019 Overview (09/06/2020): Last Assessment & Plan: New onset. Last TTE 12/2017 pseudonl diastolic dysfn grade II, EF 58, valves WNL. -net negative 2.6 L with improvement of edema -TTE 04/10/19: EF 40 -Lasix 40 mg IV x1 --> plan for PO lasix by outpt community health coordinator -daily weights -strict ins and outs Essential hypertension 04/09/2019 Overview (09/06/2020): Last Assessment & Plan: Continue home lisinopril 40, amlodipine 10 daily Persistent atrial fibrillation 04/09/2019 Overview (09/06/2020): Last Assessment & Plan: Symptomatic persistent atrial fibrillation, presently in 1 month post ablation. Patient is doing well without recurrence of symptoms. We will continue to monitor and follow closely, and manage new / recurrent arrhythmia expectantly. Community acquired pneumonia 04/09/2019 Overview (08/03/2021): Last Assessment & Plan: Patient with soft Bps. C/o chills for the past week and coughing up green sputum for weeks. -CXR: New patchy left lower lung opacity may represent pneumonia -Levaquin 750 daily - 7 day course -blood cx -sputum cx from bronch Respiratory obstruction 03/24/2019 Wheezing 01/29/2019 History of radiation therapy 11/06/2018 Malignant neoplasm of unspec ified part of left bronchus or lung 06/25/2018 Immunizations Immunization Administration Dates Next Due Pneumococcal Polysaccharide 08/02/2020 Sars-cov-2, Unspecified 03/03/2021 Family History Medical History Relation Comments Heart disease Mother Relation Status Comments Mother Social History Tobacco Use Types Packs/Day Years Used Date Smoking Tobacco: Former Cigarettes 1 40 Smokeless Tobacco: Never Tobacco Cessation:Counseling Given: Not Answered Alcohol Use Standard Drinks/Week Comments Yes 0 (1 standard drink = 0.6 oz pur e alcohol) 1 drink/week Sex and Gender Information Value Date Recorded Sex Assigned at Not on file Legal Sex Male 12:54 PM MST Gender Identity Not on file Sexual Orientation Not on file Last Filed Vital Signs Vital Sign Reading Time Taken Comments Blood Pressure 134/76 08/13/2022 9:30 AM [employer] Pulse - - Temperature 35.9 C (96.6 F) 08/13/2022 9:30 AM [employer] Respiratory Rate 18 08/13/2022 9:30 AM [employer] Oxygen Saturation - - Inhaled Oxygen Concentration - - Weight 111 kg (244 lb) 08/13/2022 9:30 AM [employer] Height 182.9 cm (6') 08/13/2022 9:30 AM [employer] Body Mass Index 33.09 08/13/2022 9:30 AM [employer]ANCE MODEL Plan of Treatment Health Maintenance Due Date Last Done Comments Influenza Vaccine (#1) 2025 Insurance
--- OUTSIDE RECORDS SUMMARY | 2025-09-07 03:07 | XMS_ITS | Encounter Summary ---
Author Organization [facility] Address [address] [place] [address] Care Team Providers Care Senior Partner Name Role Phone Mirza Fitzgerald DO Primary Care Provider + [phone] Mirza Fitzgerald DO Primary Care Provider + [phone] Mirza Fitzgerald DO Unavailable [phone] Dolores Perry MD Unavailable [phone] Jason Gonzalez MD Unavailable En Santos MD Unavailable Kaley Zhao NP Unavailable [phone] Nano, Physician Primary Care Provider Jenise Dumont DO Primary Care Provider + Jenise Dumont DO Unavailable [phone] Art Langley MD Unavailable Carmen Wheeler MD Unavailable [phone] Lucia Emerson NP Unavailable [phone] No, Physician Primary Care Provider Encounter Details Date Type Department Care Team (Late st Contact Info) Description 05/13/2018 Orders Only [facility] [place] [facility] Information Management [address] [place] [address] Scanning, Provider Social History Tobacco Use Types Packs/Day Years Used Date Smoking Tobacco: Former Smokeless Tobacco: Former Alcohol Use Standard Drinks/Week Comments Yes 0 (1 standard drink = 0.6 oz pur e alcohol) Sex and Gender Information Value Date Recorded Sex Assigned at Not on file Legal Sex Male 1:39 AM [employer]AP[employer] Gender Identity Not on file Sexual Orientation Not on file documented as of this encounter Plan of Treatment Not on file documented as of this encounter Procedures Procedure Name Priority Date/Time Associated Diagnosis Comments SCAN - RADIOLOGY/IMAGING 05/13/2018 documented in this encounter Results * SCAN - RADIOLOGY/IMAGING (05/13/2018) Anatomical Region Laterality Modality Other us Provider Scanning Edited Result - Final documented in this encounter Visit Diagnoses Not on filedocumented in this encounter Care Teams Senior Partner Relationship Specialty Start Date End Date Mirza Fitzgerald DO PCP - General 12/21/16 06/02/18 Mirza Fitzgerald DO PCP - General Internal Medicine 06/03/18 04/14/19 No, Physician PCP - General 04/15/19 04/29/19 Jenise Dumont DO [address] [place] [id number] PCP - General Family Medicine 04/30/19 08/27/24 No, Physician PCP - General 08/28/24 Mirza Fitzgerald DO 06/03/18 04/29/19 Dolores Perry MD [address] [place] [address] Referring Physician Pulmonary Disease 06/06/18 04/29/19 Jason Gonzalez MD [address] [place], [place] [id number] Consulting Physician Cardiology 06/06/18 En Santos MD [address] [place] [address] Radiation Oncologist Radiation Oncology 08/12/18 Kaley Zhao, ELVIRA [address] [place] [address] Nurse Practitioner Radiation Oncology 01/29/19 11/18/22 Jenise Dumont DO [facility] [place] [address] Referring Physician Family Medicine 04/17/19 Atr Langley MD [address] [place] [address] Forest Examiner Pulmonary Disease 08/14/19 10/26/20 Carmen Wheeler MD [address] [place] [address] Forest Examiner Critical Care Med 10/27/20 Lucia Emerson, ELVIRA [address] [place] [address] Nurse Practitioner Radiation Oncology 11/19/22 documented as of this encounter
--- OUTSIDE RECORDS SUMMARY | 2025-09-07 03:07 | XMS_ITS ---
Author Organization [facility] Address [address] [place] [address] Care Team Providers Care Compressor Station Engineer Chief Name Role Phone Jason Gonzalez MD Unavailable En Santos MD Unavailable Jenise Dumont DO Unavailable Carmen Wheeler MD Unavailable [phone] Lucia Emerson NP Unavailable [phone] No, Physician Primary Care Provider [phone] Active Problems Patient Care Coordination No te Formatting of this note is d ifferent from the original. Mr. Scott Zee is a 58-year-old with newly diagnosed lung cancer. Patient initially presented to the emergency room in April with complaints of shortness of breath and concerns for pneumonia. During his visit the patient underwent a chest x-ray which demonstrated a possible left pneumothorax with perihilar segmental atelectasis. On 05/13/2018, the patient subsequently underwent a CT scan which demonstrated a nearly occluded left main stem bronchus distally which could be due to an endobronchial mass or mucus plugging. Resultant postobstructive atelectasis of the left upper lobe and lingula. There was no pneumothorax. Mild emphysema was noted. The patient was prescribed antibiotics and an inhaler and set up to follow up with pulmonology. On 05/27/2018, the patient underwent a bronchoscopy with biopsy. This revealed a large mass almost completely occluding the distal left mainstem bronchus. 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 On 06/12/2018 the patient underwent a PET scan . . Patient is scheduled for pulmonary function testing on 06/13/2018. Patient has a history of coronary artery disease and 2 MIs in the past. His first TN was in 2010 in which 4 stents were placed to his RCA. His most recent TN was in July 2017. This was complicated by dissection of the left main coronary artery. On 08/13/2017, the patient underwent an Impella valve placement because of his prior history of left ventricular dysfunction. Then on 08/21/2017 at a stent placed in his LAD and placed on Brilinta. Patient also has a history of peripheral vascular disease with stent placement in his right iliac artery in 2012. Patient's last echocardiogram was performed on 01/15/2018 which demonstrated normal left ventricular systolic function. There is pseudo normal diastolic dysfunction grade 2. Ejection fraction is measured at 58 present. There is mild enlargement of the left atrium. Patient presents today for further surgical evaluation. Problem Noted Date Diagnosed Date Class 1 obesity due to exces s calories with serious comorbidity and body mass index (BMI) of 30.0 to 30.9 in adult 03/15/2025 Diabetes mellitus 09/07/2024 Assessment & Plan (09/07/2024 8:55 AM EMPLOYMENT OFFICE CLERK): Chronic, overall well controlled Hemoglobin A1c 6.7, at goal Continue current dose of metformin, Jardiance Counseled on diet and exercise and advised to include resistance training exercises We will try to obtain patient lab results from [facility] Advised patient to schedule a dilated eye exam appointment soon Daily foot care Follow-up in 6 months Hyperlipidemia associated with type 2 diabetes krystin caldwell 09/07/2024 Assessment & Plan (09/07/2024 8:54 AM EMPLOYMENT OFFICE CLERK): Chronic, well controlled Continue Repatha, fenofibrate Patient following with Cardiology Knee pain 11/13/2021 Injury of right knee 11/13/2021 Effusion of right knee 11/13/2021 Primary osteoarthritis of right knee 11/13/2021 Radiotherapy follow-up examination 04/26/2021 S/P ablation of atrial fibrillation 07/18/2020 Personal history of other di seases of the circulatory system 07/18/2020 Typical atrial flutter 05/20/2020 Anticoagulation management encounter 05/20/2020 Assessment & Plan (09/28/2020 11:55 AM EMPLOYMENT OFFICE CLERK): The patient has a [id number] score of 3 (annualized risk of stroke 3.2%). He is presently anticoagulated with apixaban. The patient will follow-up with me in 6 months for an office visit and twelve- lead ECG. Assessment & Plan (07/18/2020 5:38 PM CDT): The patient has a [id number] score of 1 (annualized risk of stroke 1.2%). I have recommended that the patient remain anticoagulated through at least 2 months post ablation. If he remains in sinus rhythm, we will consider discontinuation next visit. The patient will follow-up with me in 2-3 months for an office visit and twelve- lead ECG. Assessment & Plan (05/20/2020 3:44 PM CDT): The patient has a [id number] score of 3 (annualized risk of stroke 3%). I have therefore recommended that he remain anticoagulated for thromboprophylaxis. Persistent atrial fibrillation 04/09/2019 Assessment & Plan (09/28/2020 11:55 AM EMPLOYMENT OFFICE CLERK): Persistent atrial fibrillation, maintaining sinus rhythm 3 months post ablation. We will continue to monitor and follow closely, and manage new / recurrent arrhythmia expectantly. Assessment & Plan (07/18/2020 5:38 PM CDT): Symptomatic persistent atrial fibrillation, presently in 1 month post ablation. Patient is doing well without recurrence of symptoms. We will continue to monitor and follow closely, and manage new / recurrent arrhythmia expectantly. Assessment & Plan (05/20/2020 3:43 PM CDT): Persistent atrial fibrillation, highly symptomatic. Presently, the patient is in right atrial flutter. His atrial arrhythmia has been associated with severe LV dysfunction in the past, now moderate. We discussed options for management. The patient is not in favor of antiarrhythmic drug therapy. In any event, amiodarone, likely the only medication at the patient can safely take, might be prohibitively dangerous in the long-term for the patient's pulmonary disease. As an alternative, we discussed catheter ablation, which was already present the patient is an option by his reliner. We discussed the rationale for atrial fibrillation ablation, including the steps involved in ablation. I detailed the risks of the procedure, including vascular injury/hematoma, myocardial injury/perforation, stroke, myocardial infarction, pulmonary vein stenosis, thermal esophageal injury, phrenic nerve injury, and . I estimated a 70% chance of freedom from long- term atrial arrhythmia, and the patient understands that occasionally a second procedure is necessary. Because of the patient's persistent atrial fibrillation, I recommended that they undergo transesophageal echocardiography (to exclude the presence of left atrial thrombus) immediately prior to EP study and ablation. If he wishes to proceed, my office will make the appropriate arrangements. Assessment & Plan (04/10/2019 12:09 PM CDT): New onset atrial fibrillation. Sounds like it has been going on for at least a month per patient's description of sx and HRs. Likely 2/2 previous radiation to the lung for NSCLC. -TSH, basic labs sent -metoprolol 5 mg IV push --> patient's rate decreased from 130s to 100s-110s -metoprolol 37.5 mg q6h -heparin gtt --> apixaban 2.5 mg BID -continuous telemetry Community acquired pneumonia 04/09/2019 Assessment & Plan (04/10/2019 12:09 PM CDT): Patient with soft Bps. C/o chills for the past week and coughing up green sputum for weeks. -CXR: New patchy left lower lung opacity may represent pneumonia -Levaquin 750 daily - 7 day course -blood cx -sputum cx from bronch Edema of lower extremity 04/09/2019 Overview (10/27/2020): Last Assessment & Plan: New onset. Last TTE 12/2017 pseudonl diastolic dysfn grade II, EF 58, valves WNL. -net negative 2.6 L with improvement of edema -TTE 04/10/19: EF 40 -Lasix 40 mg IV x1 --> plan for PO lasix by outpt reliner -daily weights -strict ins and outs Assessment & Plan (04/10/2019 12:09 PM CDT): New onset. Last TTE 12/2017 pseudonl diastolic dysfn grade II, EF 58, valves WNL. -net negative 2.6 L with improvement of edema -TTE 04/10/19: EF 40 -Lasix 40 mg IV x1 --> plan for PO lasix by outpt reliner -daily weights -strict ins and outs Hypertension associated with diabetes 04/09/2019 Assessment & Plan (09/07/2024 8:56 AM EMPLOYMENT OFFICE CLERK): Chronic, well controlled Continue current dose of amlodipine, lisinopril, metoprolol XL Assessment & Plan (04/09/2019 8:08 PM CDT): Continue home lisinopril 40, amlodipine 10 daily Cough 03/24/2019 Respiratory obstruction 03/24/2019 Wheezing 01/29/2019 History of radiation therapy 11/06/2018 Non-small cell cancer of left lung 06/25/2018 Cancer Staging:Clinical stage from 05/13/2018: cT2, cN0, cM0 - Signed by Justin Guzman MD on 06/25/2018 Pathologic stage from 05/27/2018:Stage IA3(pT1c, pN0, cM0) - Signed by Kaley Zhao NP on 08/12/2018 Malignant neoplasm of unspec ified part of left bronchus or lung 06/25/2018 Current Treatment and Therapy Plans No current plan information found. Past Treatment and Therapy Plans No past plan information found. Radiation Treatments * Course C1 LT LUNG 07/09/2018 - 07/29/2018 Treatment Period Energy Fraction Dose Fractions Total Dose Plans Planned LEFT LUNG 07/09/2018 - 07/29/2018 400 15 / 6,000 Reference Points Delivered PTV 07/09/2018 - 07/29/2018 6,000 Lifetime Dose Tracking * Chemical Lifetime Dose Automatic Entry Manual Entr y DLP 8,761 mGycm 8,761 mGycm 0 mGycm Treatment Summaries Non-small cell cancer of left lung (HCC)* Images from the original note were not included. [facility] Rad[facility] [address] [place] [address] This Survivorship Care Plan is a cancer treatment summary and follow-up plan and is provided to youto keep with your health care records and to share with your primary care provider or any of your doctors and nurses. This summary is a brief record of major aspects of your cancer treatment not a detailed or comprehensive record of your care. You should review this with your cancer provider. Treatment Summary and Survivorship Care Plan for Non-Small Cell Lung Cancer Provided by Kaley Zhao NP on 11/06/18 General Information Patient name Scott Zee (home) [phone] (work) Date of 1960 Health Care Providers (Including Names, Institutions) Provider Name: Contact Information: Primary Care Physician Mirza Fitzgerald DO [phone] Surgeon Radiation Oncologist MD Kaley Becerra [facility] [phone] Medical Oncologist Other Providers Treatment Summary Cancer Diagnosis Information Diagnosis Non-small cell cancer of left lung (CMS/HCC) Diagnosis date 06/25/2018 Staging information Cancer Staging Non-small cell cancer of left lung (CMS/HCC) Staging form: Lung, AJCC 8th Edition - Clinical stage from 05/13/2018: cT2, cN0, cM0 - Signed by Justin Guzman MD on 06/25/2018 - Pathologic stage from 05/27/2018: Stage IA3 (pT1c, pN0, cM0) - Signed by Kaley Zhao NP on 08/12/2018 Treatment Completed Surgery No Radiation Radiation Treatments Active Patient's record has no active radiation treatments documented. Historical Plans LEFT LUNG Most recent treatment: Dose planned: 400 cGy (fraction 15 on 07/29/2018) Total: Dose planned: 6,000 cGy Elapsed Course Treatment Days: 20 Reference Points PTV Most recent treatment: Dose given: 400 cGy (on 07/29/2018) Total: Dose given: 6,000 cGy Elapsed Course Treatment Days: 20 Systemic Therapy (chemotherapy, hormonal therapy, other) [No treatment plan] Lifetime Dose Tracking Lifetime Dose Tracking: No doses have been documented on this patient for the following tracked chemicals: doxorubicin, epirubicin, idarubicin, daunorubicin, mitoxantrone, bleomycin, mitomycin, cyclophosphamide, carmustine,ifosfamide, etoposide, doxorubicin HCl pegylated liposomal, etoposide phosphate, valrubicin, doxorub icin isotoxic equivalent Research Studies No available studies Persistent symptoms or side effects that have continued after finishing treatment: Other: shortnessof breath Treatment Ongoing: No Follow-up Care Plan Your follow-up care plan is design to inform you and primary care providers regarding the recommended and required follow-up, cancer screening and routine health maintenance that is needed to maintain optimal health. Schedule of Clinical Visits Coordinating Provider When/How often En Santos MD Every 3-6 months for first 2 years, then every 6 months for 3-5 years then yearly. Cancer Surveillance or other Recommended Tests Coordinating Provider Test How Often MD Kaley Becerra ANP Chest Imaging Every 3-6 months for 2 years then every 6-12 months years 3-5, then yearly. All providers Monitor for termite technician cardiac toxicity. Mirza Fitzgerald Monitor for termite technician toxicity ?? Cardiac - congestive heart failure (CHF), coronary artery disease (CAD) ?? Renal insufficiency- Creatinine ?? Musculoskeletal - Chest wall pain ?? Neurologic - neuropathy ?? Hematologic - CBC Yearly Possible late- and long-term effects that someone with this type of cancer and treatment may experience: ??? Constipation ??? Hearing loss ??? Kidney problems ??? Peripheral neuropathy or numbness and tingling ??? Pneumonitis or inflammation of the lung (6 weeks-6 months after treatment) * ??? Pulmonary fibrosis or scarring (6 weeks-6 months after treatment) * ??? Trouble with or painful swallowing * ??? Chest wall toxicity between 9-12 months after radiation therapy * Please call your radiation oncologist if experiencing these late effects * Fatigue Many patients experience some level of fatigue. Some patients experience severe and ongoing fatigue. An active lifestyle with healthy sleep patterns can improve your energy levels. Talk to your provider about ongoing (more than 3 months) fatigue. Please continue to see your primary care provider for all general health care recommended for a person your age, including cancer screening tests. Any symptoms should be brought to the attention of your provider: 1. Anything that represents a brand new symptom; 2. Anything that represents a persistent symptom; 3. Anything you are worried about that might be related to the cancer coming back. Cancer survivors may experience issues with the areas listed below. If you have any concerns in these or other areas, please speak with your doctors or nurses to find out how you can get help with them. ?? Anxiety and depression ?? Emotional and mental health ?? Fatigue ?? Fertility ?? Financial advice or assistance ?? Insurance ?? Memory or concentration loss ?? Parenting ?? Physical functioning ?? School/work ?? Sexual functioning ?? Stopping smoking ?? Weight changes ?? Other A number of lifestyle/behaviors can affect your ongoing health, including the risk for the cancer coming back or developing another cancer. Discuss these recommendations with your doctor or nurse: 1. Eat a healthy diet: focus on more fruits, vegetables and whole grains. 2. Maintain a healthy weight; avoid being overweight. Aim for a normal body mass index (BMI) of 18.5-24.9. Help learning to eat healthier, call the real estate consultant at: [facility] [phone]. 3. Have an active lifestyle, strive for 30 minutes of moderate exercise 5 times a week and strengthor resistance training at least twice a week. 4. Use broad-spectrum (UVA+UVB) sunscreen with SPF 30 or greater, is water resistant, limit time spent in the sun (10 am-4pm), wear hat, wear UV protective clothing, wear sunglasses. Never use a tanning bed. Skin that was irradiated may be more sensitive over your lifetime. 5. Do not smoke or chew tobacco; participate in a smoking cessation program. 6. Limit alcohol intake, 1 drink per day for a woman and 2 drinks per day for a man. Resources you may be interested in: ?? [facility] A National Cancer Orchard [facility] http://www.[facility]/ [facility] & Cancer Information Center [address]st floor of [facility] [phone]. Computer access, educational material, counseling services (FREE) ?? Cancer Resources: www.cancer.net ?? [place] Disabilities Act: The U.S. Department of Justice provides information about the Americans with Disabilities Act (ADA). Toll free number http://www.ada.gov/ ?? Occupational Therapy at [facility]. Improve memory and thinking following chemotherapy. Improve your performance at home, work and in the community. or Toll free www.ot.[facility]/patients ?? A service of [facility], a non-profit organization providing free, professional support - including counseling, support group, financial assistance, educational workshops and publications -to anyone coping with lung cancer. http://www.lungcancer.org/ ?? We are a partnership of lung cancer survivors, advocates, researchers, healthcare professionals and industry leaders. And we are united in the belief that every person with lung cancer deserves a cure. http://www.freeGageIne.org/ ?? Lung Cancer Connection is committed to organizing and funding community outreach programs aimed at those affected by lung cancer in the [facility]. http://www.lungcancerconnectioninc.org ?? Cancer and Careers empowers and educates people with cancer to thrive in their workplace by providing expert advice, interactive tools and educational events. http://www.cancerandcareers.org/en/etnsusc-jwh-csbt ?? [employer] Cancer: https://survivorship.cancer.gov/ an online tool for cancer survivors and caregivers created by the [place] Cancer Society and the National Cancer Orchard. It provides: ?? Information on dealing with side effects from cancer and treatment ?? Caregivers with support and resources ?? Practical advice about talking to friends and family about cancer ?? Questions to ask their health care team
--- OUTSIDE RECORDS SUMMARY | 2025-09-07 03:07 | XMS_ITS | Clinical Summary ---
Author Organization [facility] Healthcare Address [address] [place] [address] Care Team Providers Care Public Improvement Inspector Name Role Phone Jason Bangura MD Unavailable En Santos MD Unavailable [phone] Jenise Dumont DO Unavailable [phone] Carmen Wheeler MD Unavailable [phone] Lucia Emerson NP Unavailable No, Physician Primary Care Provider [phone] Allergies No known active allergies Medications loratadine (CLARITIN) 10 mg tabletIndicatio ns:phlegm Take 1 tablet (10 mg total) by mouth daily Active TRELEGY ELLIPTA 100-62.5-25 mcg inhaler Inhale 1 puff daily 019 Active albuterol HFA (PROVENTIL HFA,VENTOLIN HFA,PROAIR HFA) 90 mcg/actuation inhaler Inhale 2 puffs every 6 (six) hours as needed for wheezing Active sildenafiL (VIAGRA) 100 mg tablet 020 Active ergocalciferol (VITAMIN D) 50,000 unit capsule Take 1 capsule (50,000 Units total) by mouth once a week 023 Active clobetasoL (TEMOVATE) 0.05 % cream APPLY ON ITCHY BUMPS OR FIRM RAISED BUMPS ON FOREARMS TWICE DAILY. USE SPARINGLY Active empagliflozin (JARDIANCE) 25 mg tabletIndicatio ns:Type 2 diabetes mellitus with other circulatory complication, without long-term current use of insulin Take 1 tablet (25 mg total) by mouth daily 90 tablet 3 Active metFORMIN (GLUCOPHAGE) 500 mg tabletIndicatio ns:Type 2 diabetes mellitus with other circulatory complication, without long-term current use of insulin Take 1 tablet (500 mg total) by mouth 2 (two) times a day with meals 180 tablet 3 Active OneTouch Verio Flex meter miscIndications :Type 2 diabetes mellitus with other circulatory complication, without long-term current use of insulin One glucometer 1 each Active atorvastatin (LIPITOR) 40 mg tablet TAKE 1 TABLET NIGHTLY 90 tablet 3 Active amLODIPine (NORVASC) 10 mg tabletIndicatio ns:Persistent atrial fibrillation (HCC) TAKE 1 TABLET DAILY 90 tablet 3 Active OneTouch Delica Plus Lancet 30 gauge miscIndications :Type 2 diabetes mellitus with other circulatory complication, without long-term current use of insulin testing 2x's daily 180 each 3 Active OneTouch Verio test strips stripIndication s:Type 2 diabetes mellitus with other circulatory complication, without long-term current use of insulin testing 2x's daily [address] (PROTONIX) 40 mg EC tablet TAKE 1 TABLET DAILY 90 tablet 3 Active metoprolol XL (TOPROL-XL) 100 mg 24 hr tablet TAKE 1 TABLET DAILY 90 tablet 3 025 Active lisinopriL (PRINIVIL,ZESTR IL) 40 mg tablet TAKE 1 TABLET DAILY 90 tablet 3 025 Active apixaban (Eliquis) 5 mg tablet Take 1 tablet (5 mg total) by mouth 2 (two) times a day 180 tablet 3 025 2025 Active aspirin 81 mg enteric coated tablet TAKE 1 TABLET DAILY 90 tablet 2 Active evolocumab (Repatha SureClick) 140 mg/mL pen injectorIndicat ions:Persistent atrial fibrillation (HCC) INJECT 1ML SUBCUTANEOUSLY ONCE EVERY 14 DAYS 2 mL 4 025 Active aspirin 81 mg enteric coated tablet TAKE 1 TABLET DAILY 90 tablet 3 024 2024 Discontinued Repatha SureClick 140 mg/mL pen injectorIndicat ions:Persistent atrial fibrillation (HCC) INJECT 1ML SUBCUTANEOUSLY ONCE EVERY 14 DAYS 2 mL 025 2024 Discontinued Active Problems Patient Care Coordination No te [...] 2 MIs in the past. His first HI was in 2010 in which 4 stents were placed to his RCA. His most recent HI was in July 2017. This was complicated [...] 09/07/2024 Assessment & Plan (09/07/2024 8:55 AM TURNER OFF): Chronic, overall well controlled Hemoglobin A1c 6.7, at goal Continue current dose of metformin, Jardiance Counseled on diet and exercise and advised to include resistance training exercises We will try to obtain patient lab results from [facility] Advised patient to schedule a dilated eye exam appointment soon Daily foot care Follow-up in 6 months Hyperlipidemia associated with type 2 diabetes krystin caldwell 09/07/2024 Assessment & Plan (09/07/2024 8:54 AM TURNER OFF): Chronic, well controlled Continue Repatha, fenofibrate Patient [...] 05/20/2020 Assessment & Plan (09/28/2020 11:55 AM TURNER OFF): The patient has a [id number] score of 3 (annualized risk of stroke 3.2%). He is presently anticoagulated with apixaban. The patient will follow-up with me in 6 months for an office visit and twelve- lead ECG. Assessment & Plan (07/18/2020 5:38 PM CDT): The patient has a [id number]-LQZi score of 1 (annualized risk of stroke 1.2%). I have recommended that the patient remain anticoagulated through at least 2 months post ablation. If he remains in sinus rhythm, we will consider discontinuation next visit. The patient will follow-up with me in 2-3 months for an office visit and twelve- lead ECG. Assessment & Plan (05/20/2020 3:44 PM CDT): The patient has a [id number]-LACf score of 3 (annualized risk of stroke 3%). I have therefore recommended that he remain anticoagulated for thromboprophylaxis. Persistent atrial fibrillation 04/09/2019 Assessment & Plan (09/28/2020 11:55 AM TURNER OFF): Persistent atrial fibrillation, maintaining sinus rhythm 3 [...] the patient is an option by his cable respooler. We discussed the rationale for atrial fibrillation [...] --> plan for PO lasix by outpt cable respooler -daily weights -strict ins and outs Assessment & Plan (04/10/2019 12:09 PM CDT): New onset. Last TTE 12/2017 pseudonl diastolic dysfn grade II, EF 58, valves WNL. -net negative 2.6 L with improvement of edema -TTE 04/10/19: EF 40 -Lasix 40 mg IV x1 --> plan for PO lasix by outpt cable respooler -daily weights -strict ins and outs Hypertension associated with diabetes 04/09/2019 Assessment & Plan (09/07/2024 8:56 AM TURNER OFF): Chronic, well controlled Continue current dose of [...] part of left bronchus or lung 06/25/2018 Encounters Date Type Department Care Team Description 07/21/2025 Telephone [facility] Cardiology [address] [place] [address] [address] [place] [phone] Jason Bangura MD 07/12/2025 Results Follow-Up [facility] Cardiology [address] [place] [address] [place] [phone] Jason Bangura MD US Arterial Doppler Lower Extremity Bilateral 07/09/2025 9:00 AM CDT Ancillary Procedure [facility] Vascular and Vein Surgery at [address] [place] [address] PAD (peripheral artery disease) 07/07/2025 Telephone [place] [address] [place] [phone] Jason Bangura MD Med Refill 06/30/2025 8:30 AM CDT Office Visit [facility] Cardiology [address] [place] [address] [place] [phone] Jason Bangura MD Coronary artery disease involving [place] coronary artery of [place] heart without angina pectoris (Primary Dx); History of ST elevation myocardial infarction; PAD (peripheral artery disease); Status post angioplasty with stent; S/P ablation of atrial fibrillation; Chronic anticoagulation; Hypertension associated with diabetes (HCC); Stage 3a chronic kidney disease (HCC) from Last 3 Months Surgical History Surgery Date Site/Laterality Comments OTHER SURGICAL HISTORY Myocardial Infarction/STEMI on 10/02/10: CATARACT EXTRACTION CARDIAC SURGERY FEMORAL ARTERY STENT Left FISTULA REPAIR 09/23/2003 - 09/22/2004 [facility] LEG SURGERY Medical History Medical History Date Comments Hx Other Medical 2010 Myocardial Infa rction/STEMI on 10/02/10 Hypertension Hypertension Hx Other Medical Mixed dyslipide basim Hx Other Medical 2012 Peripheral Vasc ular Disease s/p left common iliac CAD (coronary artery disease) Emphysema lung Pneumonia Cataract Atrial fibrillation, controlled (HCC) HI (myocardial infarction) (HCC) x2 2010 2016 Sleep apnea Hyperlipidemia Cancer (HCC) lung cancer Scarring of lung following radiation CHF (congestive heart failure) (HCC) Obesity Family History Medical History Relation Name Comments Hypertension Brother Stroke Brother Other Father healthy; Coronary artery disease Mother Lidia nary Artery Disease; Hypertension Mother Relation Name Status Comments Brother Father Alive Mother Alive Social History Tobacco Use Types Packs/Day Years Used Date Smoking Tobacco: Former Cigarettes 1 40 0 03/1978 - 03/2018 Smokeless Tobacco: Never Tobacco Cessation:Counseling Given: Not Answered Alcohol Use Standard Drinks/Week Comments Yes 0 (1 standard drink = 0.6 oz pur e alcohol) once a week Sex and Gender Information Value Date Recorded Sex Assigned at Not on file Legal Sex Male 1:39 AM TURNER OFF Gender Identity Not on file Sexual Orientation Not on file 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 on file Not on file Not on file Last Filed Vital Signs Vital Sign Reading Time Taken Comments Blood Pressure 138/88 06/30/2025 8:29 AM CDT Pulse 63 06/30/2025 8:29 AM CDT Temperature 36.9 C (98.4 F) 06/07/2020 8:00 AM CDT Respiratory Rate 16 03/15/2025 8:22 AM CDT Oxygen Saturation 96% 06/30/2025 8:29 AM CDT Inhaled Oxygen Concentration - - Weight 103.8 kg (228 lb 12.8 oz) 06/30/2025 8:29 AM CDT Height 182.9 cm (6') 06/30/2025 8:29 AM CDT Body Mass Index 31.03 06/30/2025 8:29 AM CDT Plan of Treatment Health Maintenance Due Date Last Done Comments Albumin Creatinine Ratio, Urine 1960 Colon Cancer Screening-Colonoscopy 1960 Depression Screening 1960 Hepatitis C Screening 1960 Prostate Cancer Screening-PSA 1960 DTaP/Tdap/Td Vaccine (1 - Tdap) 1973 Hepatitis B Screening 02/11/1980 Regular Well Visit/Exam 18-64 02/11/1980 Zoster Vaccine (1 of 2) 02/11/2012 eGFR 06/06/2021 06/06/2020, 03/24, 05/16/2018, Additional history exists Influenza Vaccine (#1) 2025 , 08/02/2020, 08/08/2019 Pneumococcal vaccine <65 (3 of 3 - PCV20 or PCV21) 08/02/2025 08/02/2020, 08/08/2019 Foot Exam 09/07/2025 09/07/2024 Hemoglobin A1C 09/14/2025 03/15/2025, 08/23, 08/13/2017 Dilated Eye Exam 09/21/2025 09/21/2024 Lipid Panel 06/30/2026 06/30/2025, 10/10/2023, 07/31/2023, Additional history exists Medical Devices Implanted Type Area Detention Attendant Device Identifier Shelf Expiration Date Model / Serial / Lot [employer] [id number] System 6-12fr Mvp Venous Closure Vascade - [id number] - [id number] Implanted:Qty: 1 on 06/06/2020 by Cecilio Roque MD at [facility] [employer] 03/29/2022 800-612C-1 [id number] / [id number] / [id number] [employer] [id number] System 6-12fr Mvp Venous Closure Vascade - [id number] - [id number] Implanted:Qty: 1 on 06/06/2020 by Cecilio Roque MD at [facility] [employer] 03/29/2022 800-612C-1 0U / [id number] / [id number] [employer] [id number] System 6-12fr Mvp Venous Closure Vascade - [id number] - [id number] Implanted:Qty: 1 on 06/06/2020 by Cecilio Roque MD at [facility] [employer] 03/22/2022 800-612C-1 0U / [id number] / [id number] [employer] [id number] System 6-12fr Mvp Venous Closure Vascade - [id number] - [id number] Implanted:Qty: 1 on 06/06/2020 by Cecilio Roque MD at [facility] [employer] 03/22/2022 800-612C-1 [id number] / [id number] / [id number] Procedures Procedure Name Priority Date/Time Associated Diagnosis Comments US ARTERIAL DOPPLER LOWER EXTREMITY BILATERAL Schedule Routine, Read Routine (OP Routine) 07/09/2025 9:29 AM CDT PAD (peripheral artery disease) ECG 12-LEAD Routine 06/30/2025 8:34 AM CDT Coronary artery disease involving [place] coronary artery of [place] heart without angina pectoris S/P ablation of atrial fibrillation POCT LIPID PANEL Routine 06/30/2025 8:34 AM CDT Coronary artery disease involving [place] coronary artery of [place] heart without angina pectoris POCT HEMOGLOBIN A1C Routine 03/15/2025 8:24 AM CDT Type 2 diabetes mellitus with other circulatory complication, without long-term current use of insulin (HCC) HM DIABETES EYE EXAM Routine 09/21/2024 7:31 AM TURNER OFF EGFR STAT 06/06/2020 7:21 AM CDT from Last 3 Months or Most Recently Relevant to Health Maintenance Results * US Arterial Doppler Lower Extremity Bilateral (07/09/2025 9:29 AM CDT) Anatomical Region Laterality Modality Vascular Bilateral Ultrasound 07/09/2025 8:52 AM CDT Narrative 07/09/2025 12:42 PM CDT Vascular & Vein Surgery [address] [facility] [place] [address] Lower Extremity Arterial Doppler Report Patient Name: SCOTT ZEE C : 1960 Study Date: 07/09/2025 8:52:00 AM Sex: M Dye Maker: Stephie Paul RVT Location: [facility] Ref Provider: JASON BANGURA Quality: Adequate Order Provider: JASON BANGURA PROCEDURES: Arterial Report: Bilateral lower extremity arterial Doppler exam at rest. INDICATIONS: S/P stent LCIA 10/02/12. HISTORY: HTN. HLD. DM. CAD-HI S/P stents. Afib S/P ablation. Lung CA. CKD. COMPARISONS: No change compared to prior study. The previous exam was completed on 09/18/16 @ outside facility: Rt 1.17, Lt 0.90. MEASUREMENTS: Right Value Left Value Rt Brachial Pressure 148 mmHg Lt Brachial Pressure 144 mmHg Rt MEDICAL PHYSICS TEACHER Pressure 172 mmHg Lt MEDICAL PHYSICS TEACHER Pressure 132 mmHg Rt DPA Pressure 175 mmHg Lt DPA Pressure 131 mmHg Rt 1st Digit Pressure 141 mmHg Lt 1st Digit Pressure 118 mmHg Rt PT DANYA Resting 1.16 Lt PT DANYA Resting 0.89 Rt DP DANYA Resting 1.18 Lt DP DANYA Resting 0.89 Rt Digit 1/Arm Index 0.95 Lt Digit 1/Arm Index 0.8 FINDINGS: Right Common Femoral Artery Analysis: The common femoral artery waveform is triphasic. Right Popliteal Artery Analysis: The popliteal waveform is triphasic. Right Posterior Tibial Artery Analysis: The posterior tibial waveform is triphasic. Right Anterior Tibial Artery Analysis: The anterior tibial waveform is triphasic. Right Digits: Normal right digit pressure and waveform. Left Common Femoral Artery Analysis: The common femoral artery waveform is triphasic. Left Popliteal Artery Analysis: The popliteal waveform is triphasic. Left Posterior Tibial Artery Analysis: The posterior tibial waveform is triphasic. Left Anterior Tibial Artery Analysis: The anterior tibial waveform is biphasic. Left Digits: Normal left digit pressure and waveform. CONCLUSIONS: 1. The bilateral lower extremity arterial Doppler reveals multiphasic waveforms in all distributions above with normal ankle/brachial indices and digit pressures. No evidence of lower extremity arterial occlusive disease at rest bilaterally. ATTESTATION: I have reviewed and interpreted the pertinent images and measurements of this study. I attest to the conclusions in the final report that is provided above. Electronically Signed By: Tha Figueroa MD 07/09/2025 12:40:20 PM CDT Procedure Note Tha Figueroa MD - 07/09/2025 Vascular & Vein Surgery [address] [place] [id number] Lower Extremity Arterial Doppler Report Patient Name: SCOTT ZEE C : 1960 Study Date: 07/09/2025 8:52:00 AM Sex: M Dye Maker: Stephie Paul RVT Location: [facility] Ref Provider: JASON BANGURA Quality: Adequate Order Provider: JASON BANGURA PROCEDURES: Arterial Report: Bilateral lower extremity arterial Doppler exam at rest. INDICATIONS: S/P stent LCIA 10/02/12. HISTORY: HTN. HLD. DM. CAD-HI S/P stents. Afib S/P ablation. Lung CA. CKD. COMPARISONS: No change compared to prior study. The previous exam was completed on09/18/16 @ outside facility: Rt 1.17, Lt 0.90. MEASUREMENTS: Right Value Left Value Rt Brachial Pressure 148 mmHg Lt Brachial Pressure 144 mmHg Rt MEDICAL PHYSICS TEACHER Pressure 172 mmHg Lt MEDICAL PHYSICS TEACHER Pressure 132 mmHg Rt DPA Pressure 175 mmHg Lt DPA Pressure 131 mmHg Rt 1st Digit Pressure 141 mmHg Lt 1st Digit Pressure 118 mmHg Rt PT DANYA Resting 1.16 Lt PT DANYA Resting 0.89 Rt DP DANYA Resting 1.18 Lt DP DANYA Resting 0.89 Rt Digit 1/Arm Index 0.95 Lt Digit 1/Arm Index 0.8 FINDINGS: Right Common Femoral Artery Analysis: The common femoral artery waveform is triphasic. Right Popliteal Artery Analysis: The popliteal waveform is triphasic. Right Posterior Tibial Artery Analysis: The posterior tibial waveform is triphasic. Right Anterior Tibial Artery Analysis: The anterior tibial waveform is triphasic. Right Digits: Normal right digit pressure and waveform. Left Common Femoral Artery Analysis: The common femoral artery waveform is triphasic. Left Popliteal Artery Analysis: The popliteal waveform is triphasic. Left Posterior Tibial Artery Analysis: The posterior tibial waveform is triphasic. Left Anterior Tibial Artery Analysis: The anterior tibial waveform is biphasic. Left Digits: Normal left digit pressure and waveform. CONCLUSIONS: 1. The bilateral lower extremity arterial Doppler reveals multiphasicwaveforms in all distributions above with normal ankle/brachial indices and digitpressures. No evidence of lower extremity arterial occlusive disease at rest bilaterally. ATTESTATION: I have reviewed and interpreted the pertinent images and measurements ofthis study. I attest to the conclusions in the final report that is provided above. Electronically Signed By: Tha Figueroa MD 07/09/2025 12:40:20 PM CDT us Jason Koul MD IMG US PROCEDURES Final Result * ECG 12 lead (06/30/2025 8:34 AM CDT) Result [facility] us Jason Bangura MD ECG ORDERABLES Edited Result - Final * (ABNORMAL) POCT lipid panel (06/30/2025 8:34 AM CDT) Cholesterol, POC 183 <200 MG/DL HDL, POC 35(A) >=40 mg/dL Triglycerides, POC 188(A) <=149 mg/dL LDL Cholesterol POC 110 <=129 mg/dL Chol/HDL Ratio, POC 3.1 NONE Non-HDL Cholesterol, POC 148 NONE mg/dL Cholesterol Total, POC 183 30 - 199 mg/dL Capillary blood 06/30/2025 8 :34 AM CDT Result [facility] us Jason Bangura MD POINT OF CARE TEST ORDERABLES Fi nal Result * (ABNORMAL) POCT hemoglobin A1c (03/15/2025 8:24 AM CDT) Hemoglobin A1C, POC 7.1(A) 4.0 - 5.6 % Blood 03/15/2025 8:24 AM CDT Result [facility] Norm Jimenez MD POINT OF CARE TEST ORDERABLES Final Result * HM DIABETES EYE EXAM (09/21/2024 7:31 AM TURNER OFF) Result [facility] Hai Cruz MD HEALTH MAINTENANCE Final Result * eGFR (06/06/2020 7:21 AM CDT) eGFR 43 mL/min/1.7 3 m2 [facility] Comment: Interpretive Data Reference Interval Normal >/= 90 mL/min/1.73m2 Mildly decreased* 60 - 89 mL/min/1.73m2 Mildly to moderately decreased 45 - 59 mL/min/1.73m2 Moderately to severely decreased 30 - 44 mL/min/1.73m2 Severely decreased 15 - 29 mL/min/1.73m2 Kidney Failure < 15 mL/min/1.73m2 *Relative to young adult level If -Lebanese multiply value by 1.16. Estimated glomerular filtration rate is determined by the CKD-EPI equation recommended by the National Kidney Foundation (KDIGO 2012 Clinical Practice Guideline for the Evaluation and Management of Chronic Kidney Disease. Kidney Intnl Suppl Sep 2012;3:1). The CKD-EPI equation should not be used for patients with unstable renal function and has not been validated in children and those over 70. Current interpretive data was last reviewed 2016. Blood specimen (specimen) 06/06/2020 7:21 AM CDT 06/06/2020 7:47 AM CDT us Cecilio Roque MD LAB BLOOD ORDERABLES Fi nal Result [facility] [address] Department [place] [address] from Last 3 Months or Most Recently Relevant to Health Maintenance Insurance [facility] Advance Directives For more information, please contact: [phone] * Full Code (Latest Code Status on File) Date Activated Date Inactivated Comments 04/09/2019 3:18 PM 04/10/2019 7:24 PM Care Teams Public Improvement Inspector Relationship Specialty Start Date End Date No, Physician PCP - General 08/28/24 Jason Bangura MD [address] [facility] [address] [facility] [address] [facility], [facility] [address] [place], [place] [id number] Consulting Physician Cardiology 06/06/18 En Santos MD [address] [facility] [address] [place] [address] Radiation Oncologist Radiation Oncology 08/12/18 Jenise Dumont DO [facility] [place] [address] Referring Physician Family Medicine 04/17/19 Carmen Wheeler MD [address] [place] [address] Corporate Lawyer Critical Care Med 10/27/20 Lucia Emerson NP [address] [facility] [address] [place] [address] Nurse Practitioner Radiation Oncology 11/19/22
[2025-09-07 03:10] LABS: Alanine Aminotransferase 561 U/L (6-50); Albumin Level 4.1 g/dL (3.5-5.1); Alkaline Phosphatase 218 U/L (38-126); Anion Gap 10 mmol/L (4-12); Bilirubin,Total 4.8 mg/dL (0.2-1.3); Blood Urea Nitrogen 32 mg/dL (9-20); Calcium 9.7 mg/dL (8.4-10.2); Carbon Dioxide 29 mmol/L (22-30); Chloride 98 mmol/L (98-107); Estimated CRCL calculation 50 ml/min; Estimated Glomerular Filt Rate 48; Glucose 193 mg/dL (65-110); Potassium 4.8 mmol/L (3.4-5.0); Sodium 137 mmol/L (137-145); Total Protein 7.2 g/dL (6.3-8.2)
[2025-09-07] MEDS: NITROGLYCERIN SL 0.4 MG TABLET SUBLINGUAL (03:25)
--- NOTE | 2025-09-07 03:30 | ECG_ITS ---
Test Date: 2025-09-07 03:30:50 Measurements Intervals [place] Rate: 86 P: 4 MA: 149 QRS: -10 QRSD: 105 T: -24 QT: 367 QTc: 440 Interpretive Statements SINUS RHYTHM WITH OCCASIONAL SUPRAVENTRICULAR PREMATURE COMPLEXES LEFT VENTRICULAR HYPERTROPHY AND ST-T CHANGE INFERIOR INFARCT, PROBABLY RECENT BASELINE ARTIFACT- V5 ABNORMAL ECG Compared to ECG 09/07/2025 02:59:00 No significant changes Electronically Signed On 09-07-2025 06:21:04 GAS METER REPAIRER by Jt Post D.O.
[2025-09-07 03:51] LABS: Aspartate Amino Transferase 854 U/L (17-59); Troponin I 17.500 ng/mL (0.000-0.034)
[2025-09-07 03:59] LABS: Lipase 10643 U/L (23-300)
[2025-09-07] MEDS: ASPIRIN 81 MG CHEWABLE TABLET 324 MG PO (04:02)
--- NOTE | 2025-09-07 04:30 | P.HP_ITS ---
H&P: HPI History of Present Illness Date/Time: 09/07/25 04:30 Chief Complaint: Abdominal pain Narrative: 65-year-old man with CAD status post PCI, peripheral arterial disease status post DOORPERSON OR LUGGAGE PORTER stenting, paroxysmal atrial fibrillation on Eliquis, and lung cancer presents with abdominal pain. About 1-2 weeks ago, he developed shortness of breath and had flu-like symptoms and was found to be positive for flu and t reated. His symptoms resolved however yesterday late morning he developed nausea and vomiting followed by abdominal pain. The pain extends around his entire abdomen. The nausea and vomiting had resolved however he started to develop shortness of breath. He was unable to tolerate much oral intake throughout the entire day yesterday. In the evening time as he tried to sleep, he noted significant orthopnea and abdominal pain in the supine position that finally prompted him to seek further medical evaluation. Denies palpitations or syncopal events. He is able to ambulate within the confines of this home with no cardiopulmonary limitations. At times he would ambulate around the grocery store and if he ambulates down an aisle quickly, he would develop some shortness of breath which is his baseline. Review of Systems Review of Systems: All systems reviewed & are unremarkable except as noted in HPI and below PMFSH Past Medical History Medical History (Updated 09/07/25 @ 04:40 by Ian Roy MD) Atrial fibrillation CKD (chronic kidney disease) Heart abnormality Hypoxia Tobacco abuse Hypersomnia Non-small cell lung cancer COPD (chronic obstructive pulmonary disease) Surgical History Surgical History History of cardiac radiofrequency ablation (RFA) 2020 History of coronary artery stent placement Family History Family History Mother Family history of cardiovascular disease Grandparent Cerebrovascular accident Sibling Cerebrovascular accident Family history of gynecological problem Father Patient's father is in good health Other Family history of anemia Hypertension Social History Social History Social History: Caffeine-occasionally Smoking packs per day: 1.25 Smoking cigarettes per day: 25.0 Years smoked: 40 Smoking pack-years: 50.00 Smoking status: Former smoker Tobacco type: cigarettes Second hand tobacco smoke exposure: No Smoking end date: 03/23/18 Alcohol intake: current Drinks per week: 1 Alcohol use details: occasionally Substance use: never Substance use type: does not use Living arrangements: with family Occupation/Education: occupation Gender identity (if verbalized by the patient): Male Spiritual care concerns: No Agree to blood products: Yes Meds Home Medications and Allergies Home Medications ?Medication ?Instructions ?Recorded ?Confirmed ?Type apixaban 5 mg tablet 5 mg PO BID 07/28/20 5 History aspirin 81 mg tablet,delayed 81 mg PO DAILY 07/28/20 1 10/28/24 History release loratadine 10 mg capsule 10 mg PO DAILY 07/28/2002/14 History pantoprazole 40 mg tablet,delayed 40 mg PO QAM 0 08/27/25 History release sildenafil 100 mg tablet (Viagra) See Rx Instructions .Route 08/30/20 08/27/25 Rx .COMPLEX PRN sexual activity #30 tabs atorvastatin 40 mg tablet 40 mg PO QHS 07/18/21 History evolocumab 140 mg/mL subcutaneous 140 mg subcut .[id number] 07/18/21 08/27/25 History syringe (Repatha Syringe) metoprolol succinate 100 mg 100 mg PO DAILY 07/18/21 1 10/28/24 History tablet,extended release 24 hr amlodipine 10 mg tablet 10 mg PO DAILY 08/27/2202/14 History hydrocodone 5 mg-acetaminophen 325 1 tablet PO Q6H PRN pain #7 tabs 07/07/23 08/27/25 Rx mg tablet albuterol sulfate 90 mcg/actuation 1 - 2 inh inhalatio n Q4-6H PRN 08/21/23 08/27/25 Rx aerosol inhaler (Ventolin HFA) shortness of breath or wheezing 90 days #25.5 grams empagliflozin 25 mg tablet 25 mg PO DAILY 08/21/2302/14 History (Jardiance) lisinopril 40 mg tablet 40 mg PO DAILY 09/21/2402/14 History ergocalciferol (vitamin D2) 1,250 See Rx Instructions .Route 05/06/25 08/27/25 Rx mcg (50,000 unit) capsule .COMPLEX #12 caps fluticasone fur. 100 mcg-umeclid See Rx Instructions . Route 08/25/25 08/27/25 Rx 62.5 mcg-vilant 25 mcg .COMPLEX #60 ea inhalat.powder (Trelegy Ellipta) azithromycin 250 mg tablet See Rx Instructions PO .COM PLEX #6 08/30/25 Rx tabs benzonatate 200 mg capsule 200 mg PO TID PRN cough #60 caps 08/30/25 Rx Allergies Allergy/AdvReac Type Severity Reaction Status Date / Time No Known Allergies Allergy Verified 09/07/25 01:26 Vital Signs Vital Signs - 24 hr 09/07/25 02:17 09/07/25 02:48 09/07/25 03:25 Temperature 36.3 C L Pulse Rate 78 89 83 Respiratory Rate 20 30 H 28 H Blood Pressure 159/85 H 181/106 H 185/92 H Pulse Oximetry 96 97 95 09/07/25 03:30 Temperature Pulse Rate 88 Respiratory Rate 23 H Blood Pressure 151/86 H Pulse Oximetry 96 Exam Const: General: comfortable HENMT: Mouth: Yes moist mucous membranes Eyes: EOM: EOMs intact bilaterally Neck: Neck: no JVD Resp: Effort & Inspection: normal respiratory effort Auscultation: diminished lung sounds Cardio: Rate: regular rate Rhythm: regular rhythm Heart sounds: no gallops and no murmurs GI: Inspection: distended GI Palp: Yes Tenderness to palpation present (GI) Neuro: Speech: normal speech Extrem: General: no pedal edema Results Labs Labs: Short CBC 09/07/25 Range/Units 02:47 WBC 28.0 H (4.5-10.0) K/mm3 Hgb 16.8 (14.0-18.0) g/dL Hct 52.5 H (42.0-52.0) % Plt Count 343 D (150-375) k/mm3 BMP 09/07/25 02:47 Sodium 137 Potassium 4.8 Chloride 98 Carbon Dioxide 29 BUN 32 H D Creatinine 1.49 H Glucose 193 H Calcium 9.7 Cardiac Enzymes 09/07/25 Range/Units 02:47 Troponin I 17.500 H* (0.000-0.034) ng/mL Liver Function 09/07/25 Range/Units 02:47 Total Bilirubin 4.8 H (0.2-1.3) mg/dL AST 854 H (17-59) U/L ALT 561 H (6-50) U/L Alkaline Phosphatase 218 H (38-126) U/L Albumin 4.1 (3.5-5.1) g/dL Assessment and Plan Assessment and plan (1) ST elevation myocardial infarction (STEMI) of inferior wall: Code(s): I21.19 - ST elevation (STEMI) myocardial infarction involving other coronary artery of inferior wall Status: Acute (2) Atrial fibrillation: Code(s): I48.91 - Unspecified atrial fibrillation Status: Acute (3) Peripheral vascular disease: Code(s): I73.9 - Peripheral vascular disease, unspecified Status: Acute (4) Coronary artery disease: Code(s): I25.10 - Atherosclerotic heart disease of [place] coronary artery without angina pectoris Status: Acute (5) Chronic systolic heart failure: Code(s): I50.22 - Chronic systolic (congestive) heart failure Status: Acute Plan 65-year-old man with CAD status post PCI, peripheral arterial disease status post DOORPERSON OR LUGGAGE PORTER stenting, paroxysmal atrial fibrillation on Eliquis, chronic systolic heart failure, and lung cancer presents with abdominal pain whose ECG was concerning for late presentation STEMI Late presentation inferior STEMI -given his persistent symptoms, we discussed left heart catheterization with possible PCI -after the rationale was explained, the risk and benefits were discussed, and patient questions were all answered prior to agree to proceed for with the left heart catheterization with possible PCI -given that this is a delayed presentation and abnormal abdominal examination, CT scan was performed to rule out aortic pathologies as well as acute abdominal pathologies -will obtain transthoracic echocardiogram Paroxysmal atrial fibrillation -resume Eliquis this evening if no access site complications Chronic systolic heart failure -last left ventricular systolic function evaluated at EF of 40% -continue guideline directed medical therapy -mild volume overload Coronary artery disease status post PCI -continue aspirin 81 mg p.o. daily and atorvastatin 40 mg every evening -outpatient evolocumab Peripheral arterial disease status post DOORPERSON OR LUGGAGE PORTER stenting -continue aspirin 81 mg p.o. daily Prior Studies I have reviewed the following patient records and this information was taken into consideration when formulating the assessment and plan.: previous labs, previous ER visits, previous hospitalizations and previous clinic visits
--- NOTE | 2025-09-07 04:44 | WPDHPUPDATE1 ---
History and Physical Update Update Date/Time: 09/07/25 04:44 History and Physical has been reviewed, including an updated exam of the patient. There are NO changes in the patient's condition. Risks, benefits, and alternatives have been discussed and questions answered. Patient agrees to proceed with procedure.
--- NOTE | 2025-09-07 04:44 | WPDMODSED ---
Moderate Sedation Note-Pt Data Patient Data Allergies Allergy/AdvReac Type Severity Reaction Status Date / Time No Known Allergies Allergy Verified 09/07/25 01:26 Home Medications ?Medication ?Instructions ?Recorded ?Confirmed ?Type apixaban 5 mg tablet 5 mg PO BID 07/28/20 08/27/25 History aspirin 81 mg tablet,delayed 81 mg PO DAILY 07/28/20 08/27/25 History release loratadine 10 mg capsule 10 mg PO DAILY 07/28/20 08/27/25 History pantoprazole 40 mg tablet,delayed 40 mg PO QAM 07/28/20 08/27/25 History release sildenafil 100 mg tablet (Viagra) See Rx Instructions .Route 08/30/20 08/27/25 Rx .COMPLEX PRN sexual activity #30 tabs atorvastatin 40 mg tablet 40 mg PO QHS 07/18/21 08/27/25 History evolocumab 140 mg/mL subcutaneous 140 mg subcut .[id number] 07/18/21 08/27/25 History syringe (Repatha Syringe) metoprolol succinate 100 mg 100 mg PO DAILY 07/18/21 08/27/25 History tablet,extended release 24 hr amlodipine 10 mg tablet 10 mg PO DAILY 08/27/22 08/27/25 History hydrocodone 5 mg-acetaminophen 325 1 tablet PO Q6H PRN pain #7 tabs 07/07/23 08/27/25 Rx mg tablet albuterol sulfate 90 mcg/actuation 1 - 2 inh inhalation Q4-6H PRN 08/21/23 08/27/25 Rx aerosol inhaler (Ventolin HFA) shortness of breath or wheezing 90 days #25.5 grams empagliflozin 25 mg tablet 25 mg PO DAILY 08/21/23 08/27/25 History (Jardiance) lisinopril 40 mg tablet 40 mg PO DAILY 09/21/24 08/27/25 History ergocalciferol (vitamin D2) 1,250 See Rx Instructions .Route 05/06/25 08/27/25 Rx mcg (50,000 unit) capsule .COMPLEX #12 caps fluticasone fur. 100 mcg-umeclid See Rx Instructions .Route 08/25/25 08/27/25 Rx 62.5 mcg-vilant 25 mcg .COMPLEX #60 ea inhalat.powder (Trelegy Ellipta) azithromycin 250 mg tablet See Rx Instructions PO .COMPLEX #6 08/30/25 Rx tabs benzonatate 200 mg capsule 200 mg PO TID PRN cough #60 caps 08/30/25 Rx Sedation/Anesthesia: No previous sedation/anesthesia problems (including family history). [facility] Past Medical History Medical History (Updated 09/07/25 @ 04:40 by Ian Roy MD) Atrial fibrillation CKD (chronic kidney disease) Heart abnormality Hypoxia Tobacco abuse Hypersomnia Non-small cell lung cancer COPD (chronic obstructive pulmonary disease) Surgical History Surgical History History of cardiac radiofrequency ablation (RFA) 2020 History of coronary artery stent placement Family History Family History Mother Family history of cardiovascular disease Grandparent Cerebrovascular accident Sibling Cerebrovascular accident Family history of gynecological problem Father Patient's father is in good health Other Family history of anemia Hypertension Social History Social History Social History: Caffeine-occasionally Smoking packs per day: 1.25 Smoking cigarettes per day: 25.0 Years smoked: 40 Smoking pack-years: 50.00 Smoking status: Former smoker Tobacco type: cigarettes Second hand tobacco smoke exposure: No Smoking end date: 03/23/18 Alcohol intake: current Drinks per week: 1 Alcohol use details: occasionally Substance use: never Substance use type: does not use Living arrangements: with family Occupation/Education: occupation Gender identity (if verbalized by the patient): Male Spiritual care concerns: No Agree to blood products: Yes Mod Sed Physical Exam Physical Exam Pre Procedural Exam: Normal: Heart Size, Heart Rate and Heart Rhythm and Variation: Lungs Hours since solid foods: 12 Hours since liquid intake: 6 Mallampati Classification: class III Internal Medicine - PN: Obj Da Vital Signs Vital Signs: Vital Signs - 24 hr 09/07/25 02:17 09/07/25 02:48 09/07/25 03:25 Temperature 36.3 C L Pulse Rate 78 89 83 Respiratory Rate 20 30 H 28 H Blood Pressure 159/85 H 181/106 H 185/92 H Pulse Oximetry 96 97 95 09/07/25 03:30 09/07/25 03:45 Temperature Pulse Rate 88 89 Respiratory Rate 23 H 18 Blood Pressure 151/86 H 180/88 H Pulse Oximetry 96 94 Labs 09/07/25 02:47 09/07/25 02:47 Labs: Laboratory Results - last 24 hr 09/07/25 02:47 WBC 28.0 H RBC 5.69 Hgb 16.8 Hct 52.5 H MCV 92.3 MCH 29.5 MCHC 32.0 RDW 14.1 Plt Count 343 D MPV 9.2 Immature Gran % (Auto) 1.3 H Neut % (Auto) 90.6 H Lymph % (Auto) 5.0 L [place] % (Auto) 2.9 Eos % (Auto) 0.0 Baso % (Auto) 0.2 Lymph # (Auto) 1.40 [place] # (Auto) 0.8 H Eos # (Auto) 0.0 Baso # (Auto) 0.1 Abs Immat Gran (auto) 0.36 H Absolute Neuts (auto) 25.4 H Absolute Nucleated RBC 0.000 Nucleated RBC % 0.0 PT 16.7 H INR 1.4 APTT 27.2 Sodium 137 Potassium 4.8 Chloride 98 Carbon Dioxide 29 Anion Gap 10 BUN 32 H D Creatinine 1.49 H Estim Creat Clear Calc 50 Estimated GFR 48 L Glucose 193 H Lactic Acid 2.0 Calcium 9.7 Total Bilirubin 4.8 H AST 854 H ALT 561 H Alkaline Phosphatase 218 H Troponin I 17.500 H* Total Protein 7.2 Albumin 4.1 Lipase 70974 H ASA Classification/Sedation ASA Classification/Sedation ASA Class: IV Emergent: Yes Risks: Risks, benefits and alternatives explained and patient/family accepted plan for sedation. Patient re-evaluated immediately prior to sedation.
--- NOTE | 2025-09-07 05:22 | P.PCNCC_ITS ---
Cardiac Cath Procedure Note Date of procedure:: 09/07/25 Performing physician:: CATHETERIZATION LABORATORY REPORT Procedure Date: 09/07/2025 Referring Physician: Dr. Joseph Anesthesia: Versed and Fentanyl were ordered and given in my presence at 0456, procedure ended at 0517. Supervision of nurse, Tracie Rawls monitored moderate sedation with 2mg Versed and 50mcg Fentanyl was provided for 21 minutes. Pre-op Diagnosis: Delayed presentation Inferior STEMI Post-op Diagnosis: Delayed presentation inferior STEMI Procedure(s): Left heart catheterization with coronary angiography Access Site: Right radial artery Brief History and Clinical Indications: All risks, benefits and alternatives to left heart catheterization with or without percutaneous coronary intervention was discussed at length with the angelina forte. Risk of complications including but not limited to bleeding, infection, arrhythmia, stroke, worsening kidney function, blood loss, groin hematoma, limb loss, emergency coronary artery bypass grafting, and even were discussed with the patient and all questions were answered. The patient understood and wished to proceed. Time out called, patient name, date of , medical record number, allergies, procedure performed, identify Pottery Decorator, patient and staff member concurred with accurate data, procedure carried on. Findings: LEFT HEART CATHETERIZATION FINDINGS: 1. Left main: The left main coronary artery has diffuse 20-30% stenosis in the proximal to mid body where there was a previously healed dissection. The distal left main coronary artery has 40-50% stenosis. 2. Left anterior descending: The LAD is a large caliber vessel. The ostial LAD has 60-70% stenosis. There is a patent stent in the proximal LAD. The remainder of the LAD has luminal irregularities. The 1st major diagonal branch is a moderate caliber vessel with 30-40% mid stenosis. 3. Left circumflex: The left circumflex artery is a nondominant vessel providing 3 OM branches. OM1 has 20-30% mid stenosis. OM2 is small and insignificant. OM3 has diffuse 10% stenosis. The left circumflex has 10-20% stenosis prior to leading into the OM3 vessel. 4. Right coronary artery: The RCA is a large dominant vessel with patent proximal to mid stents. There is diffuse 105 stenosis throughout the vessel. The rPDA has 50-60% stenosis at its ostium followed by luminal irregularities. The rPL branch gives off 2 branches. 1 of the 2 rPL branches goes on to branch into further smaller vessels, one of which has a thrombus. The contrast eventually clears from this distal vessel. 5. Left ventricle: A. End-diastolic pressure 16 mmHg. B. LV gram shows mildly reduced systolic function with severe hypokinesis of the inferior wall. C. No significant gradient across aortic valve on catheter pullback. 6. Opening AO pressure 145/81 and closing AO pressure 131/70 Description of Procedure: Informed consent signed and placed in the chart. Patient transferred to phlebotomy lab assistant room. Prepped and draped in usual sterile fashion. 2% lidocaine injected subcutaneously in right wrist area. 22-gauge venipuncture catheter used to access the right radial artery with the Seldinger technique. 6-FR slender sheath placed in right radial artery. Nitroglycerin 200mcg, Verapamil 2.5mg, and Heparin 5000U was given intraarterial through the sheath. J wire advanced under fluoroscopy. A 5F pigtail catheter was used to cross the aortic valve for LVEDP. After obtaining LVEDP, and LV-gram was performed. The catheter was then flushed and a pullback performed to record aortic valve gradients. 5F JL3.5 diagnostic catheter engaged Left Main Coronary Artery. 6F JR4 guide catheter engaged Right Coronary Artery. Multiple orthogonal angiogram obtained and reviewed Hemostasis was achieved by application of TR band. Assessment: Occluded branch of the rPL Moderate LM and LAD stenosis Systolic cardiomyopathy Post Operative Condition: Stable No significant blood loss Disposition: ICU Plan: After successful removal of TR band, would recommend 48 hours of therapeutic [place] enox. Continue aspirin 81 mg p.o. daily. Start Plavix 75 mg p.o. daily. Obtain echocardiogram. Ian Roy Interventional Cardiology
--- NOTE | 2025-09-07 05:55 | ECG_ITS ---
Test Date: 2025-09-07 06:06:26 Measurements Intervals [place] Rate: 77 P: 3 ME: 163 QRS: -7 QRSD: 93 T: 0 QT: 352 QTc: 399 Interpretive Statements SINUS RHYTHM POSSIBLE LEFT ATRIAL ENLARGEMENT LEFT VENTRICULAR HYPERTROPHY AND ST-T CHANGE INFERIOR INFARCT, PROBABLY RECENT BASELINE ARTIFACT- I, II, III, AVR, AVL, AVF, V2, V5-V6 ABNORMAL ECG Compared to ECG 09/07/2025 03:30:50 No significant changes Electronically Signed On 09-07-2025 06:25:47 [employer]IL SPECIALIST by Jt Post D.O.
[2025-09-07] MEDS: SODIUM CHLORIDE 0.9% IV 1,000 ML 250 ML IV CONT (06:19)
--- NOTE | 2025-09-07 06:27 | ADMGEN ---
This patient, Scott Zee, was admitted to Intensive Care Unit-10. Patient/family oriented to hospital policies and general routines including ID bracelet, bed and alarms, visiting hours, pain management, procedures, bathroom and other care routines, personal items, smoking policy, room service/diet, and visiting hours. Information on how to activate the Rapid Response Team has been discussed. Patient/Family are encouraged to report perceived risks to care and to ask questions if they do not understand what they are told or what they should do.
[2025-09-07 07:39] LABS: MRSA (PCR) NOT DETECTED (NOT DETECTE)
[2025-09-07] MEDS: CLOPIDOGREL BISULFATE 75 MG TABLET PO (08:15)
[2025-09-07] MEDS: METOPROLOL TARTRATE 50 MG TAB PO ×2 (08:15→20:03)
[2025-09-07] MEDS: ASPIRIN 81 MG ENTERIC TABLET PO (08:15)
[2025-09-07] MEDS: LACTATED RINGERS 1,000 ML 999 ML IV CONT (08:15)
[2025-09-07] MEDS: LACTATED RINGERS 1,000 ML 150 ML IV CONT ×2 (08:25→16:48)
[2025-09-07 08:46] LABS: Cholesterol 124 mg/dL (0-200); HDL Direct 36 mg/dL; Triglycerides 214 mg/dL (<150)
--- NOTE | 2025-09-07 08:49 | WPDCNINT2 ---
Assessment and Plan Assessment and plan (1) Pancreatitis: Code(s): K85.90 - Acute pancreatitis without necrosis or infection, unspecified Status: Acute Assessment and Plan: Patient presented with abdominal pain, nausea, vomiting -lipase levels was 10,643 -patient also had a concomitant ST-elevation [place] -will start patient on IV fluids, keep him NPO -triglyceride levels a 214 (normal levels of 150) -will obtain RUQ to rule out gallstones -alcohol level < 10, patient denies any alcohol abuse, states he drinks 1 [place] every couple of weeks -1 L IV fluid bolus has been given, patient does have some cardiomyopathy and history of CHF so we will be cautious on fluids -continue maintenance IV fluids after the bolus -pain control with Dilaudid -consult GI (2) Elevated liver enzymes: Code(s): R74.8 - Abnormal levels of other serum enzymes Status: Acute Assessment and Plan: Elevated liver enzymes could be related to pancreatitis, STEMI, decreased perfusion -RUQ ultrasound has been ordered -check hepatitis pain (3) ST elevation [place] (STEMI): Code(s): I21.3 - ST elevation (STEMI) myocardial infarction of unspecified site Status: Acute Assessment and Plan: Inferior ST-elevation [place] on EKG, status post cardiac catheterization showed occluded branch of the RPL, moderate left main and LAD stenosis, systolic cardiomyopathy with severe hypokinesis of the inferior wall, medical management. -will start heparin infusion incident of Lovenox per Cardiology note in case patient requires any other intervention for his pancreatitis -patient started on aspirin, clopidogrel -will restart his lisinopril, amlodipine and metoprolol 05/2020: Echocardiogram: EF 20% (4) Acute kidney injury: Code(s): N17.9 - Acute kidney failure, unspecified Status: Acute Assessment and Plan: Acute kidney injury likely related to ST-elevation [place], - gently hydrate -continue to monitor urine output, renal function and electrolyte (5) Collapse of left lung: Code(s): J98.11 - Atelectasis Status: Acute Assessment and Plan: Collapse of the left lung, patient does have a history of non-small cell lung cancer on the left side -unsure if this is secondary to the cancer or mucus plug -he does follow with pulmonology at [facility], I have consulted pulmonology -start Mucomyst and Pulmozyme nebs, chest PT, DuoNeb -currently on room air with adequate O2 sats (6) Peripheral vascular disease: Code(s): I73.9 - Peripheral vascular disease, unspecified Status: Acute Assessment and Plan: Patient has a history of peripheral vascular disease with BENCH JEWELER stent Patient also has severe stenosis of celiac axis, - will consult surgery -lactic acid 1.6, -09/07/25: CTA chest abdomen and pelvis IMPRESSION: 1. Complete collapse of left lung. 2. Small left pleural effusion with pleural thickening. 3. Acute interstitial pancreatitis. 4. Severe stenosis of celiac axis. 5. Stent in left common iliac artery with moderate intrastent stenosis. (7) Atrial fibrillation: Code(s): I48.91 - Unspecified atrial fibrillation Status: Acute Assessment and Plan: History of atrial fibrillation, on Eliquis at home -once TR band is off will see start heparin infusion (8) COPD (chronic obstructive pulmonary disease): Qualifiers: COPD type: unspecified COPD Qualified Code(s): J44.9 - Chronic obstructive pulmonary disease, unspecified Code(s): J44.9 - Chronic obstructive pulmonary disease, unspecified Status: Acute Assessment and Plan: Continue bronchodilators (9) Coronary artery disease: Code(s): I25.10 - Atherosclerotic heart disease of [place] coronary artery without angina pectoris Status: Acute Assessment and Plan: History of coronary artery disease, follows with Dr. Gonzalez -cardiology following the (10) Diabetes: Code(s): E11.9 - Type 2 diabetes mellitus without complications Status: Acute Assessment and Plan: Sliding scale insulin Accu-Chek (11) Essential hypertension: Code(s): I10 - Essential (primary) hypertension Status: Acute Assessment and Plan: Patient hypertensive, continue p.r.n. hydralazine -restart his amlodipine, metoprolol and lisinopril (12) Non-small cell lung cancer: Qualifiers: Laterality: unspecified laterality Qualified Code(s): C34.90 - Malignant neoplasm of unspecified part of unspecified bronchus or lung Code(s): C34.90 - Malignant neoplasm of unspecified part of unspecified bronchus or lung Status: Acute Assessment and Plan: History of non-small cell lung cancer on the left side, -follows pulmonology at [facility], they have been consulted Plan DVT prophylaxis: Will start heparin infusion after TR band is off Stress ulcer prophylaxis: Protonix Nutrition: NPO for now Code Status: Full code Critical Care Time Spent: 48 minutes Due to a high probability of clinically significant, life threatening deterioration, the patient required my highest level of preparedness to intervene emergently and I personally spent this critical care time directly and personally managing the patient. This critical care time included obtaining a history; examining the patient; pulse oximetry; ordering and review of studies; arranging urgent treatment with development of a management plan; evaluation of patient's response to treatment; frequent reassessment; and discussions with other providers. It was exclusive of separately billable procedures and treating other patients and teaching time. Please see Assessment and Plan section and the rest of the note for further information on patient assessment and treatment This dictation may have been done utilizing a voice recognition system. Attempts have been made to correct errors. However, there may be uncorrected grammatical, spelling, and recognitions errors present. Hvac Mechanical Engineer Consult Note Consult date: 09/07/25 Reason for consult: Abdominal pain, pancreatitis, delayed STEMI HPI: Scott Zee is a 65 year old male with past medical history of atrial fibrillation, coronary artery disease with history of 5 stents, peripheral arterial disease status post BENCH JEWELER stenting, paroxysmal AFib on Eliquis, chronic systolic heart failure, chronic kidney disease, essential hypertension, tobacco abuse, non-small cell lung cancer, COPD presented the ED on 09/07/2025 in the early hours with complains of nausea, vomiting, abdominal pain, diarrhea, difficulty breathing. He also complained of abdominal bloating and diffuse abdominal pain with shortness of breath start that started on 09/06/2025. He also complained of constipation. This has been going on for last couple of weeks any shortness of breath also has increased along with orthopnea and decreased appetite. He denies any syncopal episodes. He is able to ambulate with within the confines of his home with no cardiopulmonary limitations. At times he would ambulate around the grocery store the and would developed shortness of breath which is his baseline. In the ER he was having abdominal pain in his lower quadrants with some distention but no rigidity or guarding. He was afebrile, saturating well on room air, no tachypnea no tachycardia. Mildly elevated blood pressures. EKG showed ST segment elevations in the inferior leads 09/07: CTA chest abdomen and pelvis showed complete collapse of left lung, small left pleural effusion and pleural thickening, acute interstitial pancreatitis, severe stenosis of celiac axis, stent and left common iliac artery with moderate intra stent stenosis WBC count of 28.0, hemoglobin 16.8, platelets 343, INR 1.4, PTT 27.2. Sodium 137, potassium 4.8, CO2 29, BUN 32, creatinine 1.49 (baseline creatinine 1.2-1.3) it is, blood sugars 193, total bilirubin 4.8, AST 8.4, ALT 561, troponin 17.500, and 18.00. Triglycerides 214, lipase 10,643, ETOH <10. MRSA screen is negative Patient seen and examined this morning in the ICU, is awake, alert, oriented x3, nonfocal, answers to questions appropriately. Denies any shortness of breath, no chest pain. Complains of epigastric and periumbilical abdominal pain. Denies any nausea vomiting at this time. Patient states he drinks 1 [place] once or twice a month, denies any tobacco or illicit drug use. Patient has elevated blood pressures, good O2 sats on room air. Review of Systems Review of Systems: All systems reviewed & are unremarkable except as noted in HPI and below PMFSH Past Medical History Medical History (Updated 09/07/25 @ 09:37 by Audra Castle MD) Atrial fibrillation CKD (chronic kidney disease) Heart abnormality Hypoxia Tobacco abuse Hypersomnia Non-small cell lung cancer COPD (chronic obstructive pulmonary disease) Surgical History Surgical History History of cardiac radiofrequency ablation (RFA) 2020 History of coronary artery stent placement Family History Family History (Updated 09/07/25 @ 06:32 by Elva Garcia RN) Mother Family history of cardiovascular disease Family history of anemia Grandparent Cerebrovascular accident Hypertension Family history of anemia Sibling Family history of gynecological problem Cerebrovascular accident Family history of anemia Father Cerebrovascular accident Social History Social History Social History: Caffeine-occasionally Smoking packs per day: 1.25 Smoking cigarettes per day: 25.0 Years smoked: 40 Smoking pack-years: 50.00 Smoking status: Former smoker Tobacco type: cigarettes Second hand tobacco smoke exposure: Yes Smoking end date: 03/23/18 Alcohol intake: current Drinks per week: 1 Alcohol use details: occasionally Substance use: never Substance use type: does not use Lack of Transportation: No Lack of Food: Never True Current Housing: I Have Housing Concerned About Future Housing: No Difficulty Paying Gas/Electric Bills: No Difficulty Paying for Meds: No Currently Unemployed: No Education: Bachelor's Degree Difficulty w/ Childcare or Family Care: No Living arrangements: with family Occupation/Education: occupation Gender identity (if verbalized by the patient): Male Spiritual care concerns: No Agree to blood products: Yes Meds Home Medications and Allergies Home Medications ?Medication ?Instructions ?Recorded ?Confirmed ?Type apixaban 5 mg tablet 5 mg PO BID 07/28/20 09/07/25 History aspirin 81 mg tablet,delayed 81 mg PO DAILY 07/28/20 09/07/25 History release loratadine 10 mg capsule 10 mg PO DAILY 07/28/20 09/07/25 History pantoprazole 40 mg tablet,delayed 40 mg PO QAM 07/28/20 09/07/25 History release sildenafil 100 mg tablet (Viagra) See Rx Instructions .Route 08/30/20 09/07/25 Rx .COMPLEX PRN sexual activity #30 tabs atorvastatin 40 mg tablet 40 mg PO QHS 07/18/21 09/07/25 History evolocumab 140 mg/mL subcutaneous 140 mg subcut .[id number] 07/18/21 09/07/25 History syringe (Repatha Syringe) metoprolol succinate 100 mg 100 mg PO DAILY 07/18/21 09/07/25 History tablet,extended release 24 hr amlodipine 10 mg tablet 10 mg PO HS 08/27/22 09/07/25 History empagliflozin 25 mg tablet 25 mg PO DAILY 08/21/23 09/07/25 History (Jardiance) lisinopril 40 mg tablet 40 mg PO DAILY 09/21/24 09/07/25 History ergocalciferol (vitamin D2) 1,250 See Rx Instructions .Route 05/06/25 09/07/25 Rx mcg (50,000 unit) capsule .COMPLEX #12 caps Allergies Allergy/AdvReac Type Severity Reaction Status Date / Time No Known Allergies Allergy Verified 09/07/25 06:30 Vital Signs Vital Signs - 24 hr 09/07/25 02:17 09/07/25 02:48 09/07/25 03:25 Temperature 97.3 F L Pulse Rate 78 89 83 Pulse Rate [Right Radial Palpation] Respiratory Rate 20 30 H 28 H Blood Pressure 159/85 H 181/106 H 185/92 H Pulse Oximetry 96 97 95 Oxygen Delivery 09/07/25 03:30 09/07/25 03:45 09/07/25 04:00 Temperature Pulse Rate 88 89 81 Pulse Rate [Right Radial Palpation] Respiratory Rate 23 H 18 30 H Blood Pressure 151/86 H 180/88 H 164/83 H Pulse Oximetry 96 94 96 Oxygen Delivery 09/07/25 04:15 09/07/25 04:30 09/07/25 05:49 Temperature 97.7 F Pulse Rate 89 78 78 Pulse Rate [Right Radial Palpation] 78 Respiratory Rate 28 H 23 H 23 H Blood Pressure 160/87 H 155/88 H 164/86 H Pulse Oximetry 94 94 90 Oxygen Delivery 09/07/25 06:00 09/07/25 06:04 09/07/25 06:09 Temperature Pulse Rate 78 77 Pulse Rate [Right Radial Palpation] 78 Respiratory Rate 23 H Blood Pressure 163/86 H 163/86 H Pulse Oximetry 91 Oxygen Delivery Room Air 09/07/25 06:19 09/07/25 06:34 09/07/25 06:49 Temperature Pulse Rate 79 80 80 Pulse Rate [Right Radial Palpation] 79 80 80 Respiratory Rate 22 H 23 H 23 H Blood Pressure 159/112 H 173/90 H 187/96 H Pulse Oximetry 90 92 92 Oxygen Delivery 09/07/25 07:00 09/07/25 07:04 09/07/25 07:35 Temperature Pulse Rate 78 78 82 Pulse Rate [Right Radial Palpation] 78 Respiratory Rate 26 H 26 H 28 H Blood Pressure 166/100 H 166/100 H 167/92 H Pulse Oximetry 93 93 92 Oxygen Delivery 09/07/25 08:00 09/07/25 08:00 09/07/25 08:00 Temperature 97.8 F Pulse Rate 85 85 81 Pulse Rate [Right Radial Palpation] 85 Respiratory Rate 27 H 27 H 24 H Blood Pressure 171/94 H 171/94 H Pulse Oximetry 92 92 93 Oxygen Delivery Room Air 09/07/25 08:15 09/07/25 08:15 Temperature Pulse Rate 80 81 Pulse Rate [Right Radial Palpation] 81 Respiratory Rate 24 H Blood Pressure 168/94 H Pulse Oximetry 93 Oxygen Delivery Exam Narrative: General: Pleasant gentleman, in no acute distress HEENT:? Pupils equal and reactive, sclera is clear, dry oral mucosa Neck:? Supple Respiratory:? Significantly decreased breath sounds on the left, right side is clear to auscultation, decreased at bases, no wheeze Cardiac:? S1-S2 normal, regular rate and rhythm Abdomen:? Soft, nondistended, tenderness in the epigastrium and periumbilical area, hypoactive bowel sounds Extremities:? No edema, palpable pedal pulses, right upper extremity TR band in place, pulse palpable radial pulse on the right Neuro:? Patient is awake, alert, oriented x3, nonfocal Skin:? No skin lesions noted Psych:? Normal mentation and affect Results Labs 09/07/25 02:47 09/07/25 02:47 Labs: Short CBC 09/07/25 Range/Units 02:47 WBC 28.0 H (4.5-10.0) K/mm3 Hgb 16.8 (14.0-18.0) g/dL Hct 52.5 H (42.0-52.0) % Plt Count 343 D (150-375) k/mm3 BMP 09/07/25 02:47 Sodium 137 Potassium 4.8 Chloride 98 Carbon Dioxide 29 BUN 32 H D Creatinine 1.49 H Glucose 193 H Calcium 9.7 Cardiac Enzymes 09/07/25 Range/Units 02:47 Troponin I 17.500 H* (0.000-0.034) ng/mL Liver Function 09/07/25 Range/Units 02:47 Total Bilirubin 4.8 H (0.2-1.3) mg/dL AST 854 H (17-59) U/L ALT 561 H (6-50) U/L Alkaline Phosphatase 218 H (38-126) U/L Albumin 4.1 (3.5-5.1) g/dL Quality VTE Prophylaxis VTE prophylaxis: pharmacologic ordered Hospitalist MIPS Advance Care Plan I have confirmed that the patient's Advanced Care Plan is present, code status is documented, or surrogate decision maker is listed in patient medical record.: Yes Medication Reconciliation I have utilized all available resources to obtain, update and review the patients current medications (includes all prescriptions, OTC, herbals, cannabis, and nutritional supplements).: Yes
[2025-09-07 08:50] LABS: Troponin I 18.000 ng/mL (0.000-0.034)
[2025-09-07] MEDS: PERFLUTREN LIPID MICROSPHERES 1.5 ML VIAL DILUTED TO 10 ML TOTAL VOLUME IV PUSH (09:26)
--- NOTE | 2025-09-07 09:27 | IVDEFINITY ---
Prior to administration of IV Definity the patient was educated on the risks and benefits of the imaging enhancing agent including potential adverse side effects. The patient verbalized understanding. Allergies were verified. No exclusion criteria were identified and at least one of the following inclusion criteria were met: 1) physician request, 2) patient technically difficult to image (per the [place] [employer]ocardi[employer] guidelines of two or more segments not discernable within the apical view), or 3) questionable left ventricular function. ?
--- NOTE | 2025-09-07 09:39 | PM.PNCARD ---
Progress Note: A&P Assessment and Plan (1) ST elevation myocardial infarction (STEMI) of inferior wall: Code(s): I21.19 - ST elevation (STEMI) myocardial infarction involving other coronary artery of inferior wall Status: Acute (2) Atrial fibrillation: Code(s): I48.91 - Unspecified atrial fibrillation Status: Acute (3) Peripheral vascular disease: Code(s): I73.9 - Peripheral vascular disease, unspecified Status: Acute (4) Coronary artery disease: Code(s): I25.10 - Atherosclerotic heart disease of [place] coronary artery without angina pectoris Status: Acute (5) Chronic systolic heart failure: Code(s): I50.22 - Chronic systolic (congestive) heart failure Status: Acute Plan 65-year-old man with CAD status post PCI, peripheral arterial disease status post PAPER TWISTER TENDER stenting, paroxysmal atrial fibrillation on Eliquis, chronic systolic heart failure, and lung cancer presents with abdominal pain whose ECG was concerning for late presentation STEMI Late presentation inferior STEMI -[facility] [place] showed the following: Left main: The left main coronary artery has diffuse 20-30% stenosis in the proximal to mid body where there was a previously healed dissection. The distal left main coronary artery has 40-50% stenosis. 2. Left anterior descending: The LAD is a large caliber vessel. The ostial LAD has 60-70% stenosis. There is a patent stent in the proximal LAD. The remainder of the LAD has luminal irregularities. The 1st major diagonal branch is a moderate caliber vessel with 30-40% mid stenosis. 3. Left circumflex: The left circumflex artery is a nondominant vessel providing 3 OM branches. OM1 has 20-30% mid stenosis. OM2 is small and insignificant. OM3 has diffuse 10% stenosis. The left circumflex has 10-20% stenosis prior to leading into the OM3 vessel. 4. Right coronary artery: The RCA is a large dominant vessel with patent proximal to mid stents. There is diffuse 105 stenosis throughout the vessel. The rPDA has 50-60% stenosis at its ostium followed by luminal irregularities. The rPL branch gives off 2 branches. 1 of the 2 rPL branches goes on to branch into further smaller vessels, one of which has a thrombus. The contrast eventually clears from this distal vessel. -Medical management of his CAD in small, distal vessels. -Started heparin this morning after TR band removed (Heparin chosen over lovenox in the event patient undergoes MRCP) -If no further procedures planned can restart apixaban and continue triple therapy with ASA, Plavix for one month, then ASA can be discontinued. Paroxysmal atrial fibrillation -as above Chronic systolic heart failure -last left ventricular systolic function evaluated at EF of 40% -continue guideline directed medical therapy -mild volume overload Coronary artery disease status post PCI -continue aspirin 81 mg p.o. daily and atorvastatin 40 mg every evening -outpatient evolocumab Peripheral arterial disease status post PAPER TWISTER TENDER stenting -continue aspirin 81 mg p.o. daily Subjective Date/time seen: 09/07/25 09:39 Interval history: Cardiology follow up for CAD, Afib, CMP, cardiomyopathy Date of service 09/07/2025: States he feels better than last night. He denies ever having chest pain. He did have discomfort in his stomach and frequent belching with no relief to the full feeling in his abdomen. Review of Systems Review of Systems: All systems reviewed & are unremarkable except as noted in HPI and below Exam Const: General: comfortable Orientation/consciousness: patient oriented x3 HENMT: Head: normal to inspection Mouth: Yes moist mucous membranes Eyes: General: appearance normal, both eyes and all related structures Pupils: Equal, round and reactive pupils present EOM: EOMs intact bilaterally Neck: Neck: no JVD Carotids: normal carotid upstroke Resp: Effort & Inspection: normal respiratory effort Auscultation: diminished lung sounds Cardio: Rate: regular rate Rhythm: regular rhythm Heart sounds: no gallops and no murmurs GI: Inspection: distended Auscultation: normal bowel sounds Skin: General skin exam: normal color Neuro: General: patient oriented x3 Cranial nerves: Yes Equal, round and reactive pupils present Speech: normal speech Extrem: General: no pedal edema Psych: Appearance: grossly normal Mental Status: mental status grossly normal Objective Data Vital Signs Vital Signs: Vital Signs - 24 hr 09/07/25 02:17 09/07/25 02:48 09/07/25 03:25 Temperature 36.3 C L Pulse Rate 78 89 83 Pulse Rate [Right Radial Palpation] Respiratory Rate 20 30 H 28 H Blood Pressure 159/85 H 181/106 H 185/92 H Pulse Oximetry 96 97 95 Oxygen Delivery 09/07/25 03:30 09/07/25 03:45 09/07/25 04:00 Temperature Pulse Rate 88 89 81 Pulse Rate [Right Radial Palpation] Respiratory Rate 23 H 18 30 H Blood Pressure 151/86 H 180/88 H 164/83 H Pulse Oximetry 96 94 96 Oxygen Delivery 09/07/25 04:15 09/07/25 04:30 09/07/25 05:49 Temperature 36.5 C Pulse Rate 89 78 78 Pulse Rate [Right Radial Palpation] 78 Respiratory Rate 28 H 23 H 23 H Blood Pressure 160/87 H 155/88 H 164/86 H Pulse Oximetry 94 94 90 Oxygen Delivery 09/07/25 06:00 09/07/25 06:04 09/07/25 06:09 Temperature Pulse Rate 78 77 Pulse Rate [Right Radial Palpation] 78 Respiratory Rate 23 H Blood Pressure 163/86 H 163/86 H Pulse Oximetry 91 Oxygen Delivery Room Air 09/07/25 06:19 09/07/25 06:34 09/07/25 06:49 Temperature Pulse Rate 79 80 80 Pulse Rate [Right Radial Palpation] 79 80 80 Respiratory Rate 22 H 23 H 23 H Blood Pressure 159/112 H 173/90 H 187/96 H Pulse Oximetry 90 92 92 Oxygen Delivery 09/07/25 07:00 09/07/25 07:04 09/07/25 07:35 Temperature Pulse Rate 78 78 82 Pulse Rate [Right Radial Palpation] 78 Respiratory Rate 26 H 26 H 28 H Blood Pressure 166/100 H 166/100 H 167/92 H Pulse Oximetry 93 93 92 Oxygen Delivery 09/07/25 08:00 09/07/25 08:00 09/07/25 08:00 Temperature 36.6 C Pulse Rate 85 85 81 Pulse Rate [Right Radial Palpation] 85 Respiratory Rate 27 H 27 H 24 H Blood Pressure 171/94 H 171/94 H Pulse Oximetry 92 92 93 Oxygen Delivery Room Air 09/07/25 08:15 09/07/25 08:15 09/07/25 09:04 Temperature Pulse Rate 80 81 Pulse Rate [Right Radial Palpation] 81 81 Respiratory Rate 24 H Blood Pressure 168/94 H Pulse Oximetry 93 Oxygen Delivery Intake/Output Intake/Output: Intake & Output 09/04/25 09/05/25 09/06/25 09/07/25 23:59 23:59 23:59 23:59 Intake Total 120 Balance 120 Meds/Results Medications: Active Medications Generic Name Dose Route Start Last Admin Trade Name Freq PRN Reason Stop Dose Admin Acetylcysteine 200 mg 09/07/25 14:00 Acetylcysteine 20% Inhal Soln 800 Mg/4 Ml Vial INHALATION Q6HRT FRANCIS Albuterol/Ipratropium 3 ml 09/07/25 14:00 Ipratropium 0.5 Mg/Albuterol Sulfate 2.5 Mg (Base) Ampul.Neb 3 Ml INHALATION Q6HRT [facility] Amlodipine Besylate 10 mg 09/07/25 09:00 09/07/25 08:15 Amlodipine Besylate 10 Mg Tablet PO 10 mg DAILY FRANCIS Administration Aspirin 81 mg 09/07/25 09:00 09/07/25 08:15 Aspirin 81 Mg Enteric Tablet PO 81 mg QAM FRANCIS Administration Clopidogrel Bisulfate 75 mg 09/07/25 09:00 09/07/25 08:15 Clopidogrel Bisulfate 75 Mg Tablet PO 75 mg QAM FRANCIS Administration Dextrose 12.5 gm 09/07/25 07:51 Dextrose 50% 25 Gm/50 Ml Syringe IV PUSH PRN PRN Hypoglycemia Protocol Dornase Alverto 2.5 mg 09/07/25 09:30 Dornase Alverto Inh Soln 1 Mg/Ml 2.5 Ml Amp INHALATION 09/08/25 20:01 Q12HRT [facility] Glucagon 1 mg 09/07/25 07:51 Glucagon For Inj 1 Mg Vial IM PRN PRN Hypoglycemia Protocol Glucose 15 gm 09/07/25 07:51 Glucose Oral Gel 15 Gm Of Glucse In 37.5 Gm Tube PO PRN PRN Hypoglycemia Protocol Hydralazine HCl 10 mg 09/07/25 07:47 09/07/25 09:22 Hydralazine Hcl 20 Mg/Ml Vial IV PUSH 10 mg Q4H PRN Administration Blood Pressure - High Lactated Ringer's 1,000 mls @ 150 mls/hr 09/07/25 09:15 09/07/25 08:25 Lr - Lactated Ringers Iv IV CONT 150 mls/hr .Q6H40M FRANCIS Administration Dextrose 1,000 mls @ 100 mls/hr 09/07/25 07:51 Dextrose 5% 1,000 Ml IVPB PRN PRN Hypoglycemia Protocol Insulin Aspart 3 - 6 units 09/07/25 12:00 Insulin Aspart (*Bkc) 100 Units/Ml SUB-Q Q6HR [facility] Protocol Lisinopril 40 mg 09/07/25 09:00 09/07/25 08:15 Lisinopril 20 Mg Tablet PO 40 mg DAILY FRANCIS Administration Metoprolol Tartrate 50 mg 09/07/25 09:00 09/07/25 08:15 Metoprolol Tartrate 50 Mg Tab PO 50 mg Q12HR FRANCIS Administration Radiology Results: ITS Impressions Chest/Abdomen/Pelvis CTA 09/07/25 06:24 IMPRESSION: 1. Complete collapse of left lung. 2. Small left pleural effusion with pleural thickening. 3. Acute interstitial pancreatitis. 4. Severe stenosis of celiac axis. 5. Stent in left common iliac artery with moderate intrastent stenosis. Chest X-Ray 09/07/25 07:48 IMPRESSION: Large left-sided pleural effusion. Labs Labs: Laboratory Results - last 24 hr 09/07/25 09/07/25 09/07/25 02:47 06:23 07:44 WBC 28.0 H RBC 5.69 Hgb 16.8 Hct 52.5 H MCV 92.3 MCH 29.5 MCHC 32.0 RDW 14.1 Plt Count 343 D MPV 9.2 Immature Gran % (Auto) 1.3 H Neut % (Auto) 90.6 H Lymph % (Auto) 5.0 L Henry % (Auto) 2.9 Eos % (Auto) 0.0 Baso % (Auto) 0.2 Lymph # (Auto) 1.40 Henry # (Auto) 0.8 H Eos # (Auto) 0.0 Baso # (Auto) 0.1 Abs Immat Gran (auto) 0.36 H Absolute Neuts (auto) 25.4 H Absolute Nucleated RBC 0.000 Nucleated RBC % 0.0 PT 16.7 H INR 1.4 APTT 27.2 Sodium 137 Potassium 4.8 Chloride 98 Carbon Dioxide 29 Anion Gap 10 BUN 32 H D Creatinine 1.49 H Estim Creat Clear Calc 50 Estimated GFR 48 L Glucose 193 H POC Capillary Glucose 131 H Lactic Acid 2.0 Calcium 9.7 Total Bilirubin 4.8 H AST 854 H ALT 561 H Alkaline Phosphatase 218 H Troponin I 17.500 H* Total Protein 7.2 Albumin 4.1 Triglycerides Cholesterol LDL Cholesterol Direct HDL Direct Lipase 02261 H Nasal MRSA (PCR) Not detected Ethyl Alcohol 09/07/25 08:12 WBC RBC Hgb Hct MCV MCH MCHC RDW Plt Count MPV Immature Gran % (Auto) Neut % (Auto) Lymph % (Auto) Henry % (Auto) Eos % (Auto) Baso % (Auto) Lymph # (Auto) Henry # (Auto) Eos # (Auto) Baso # (Auto) Abs Immat Gran (auto) Absolute Neuts (auto) Absolute Nucleated RBC Nucleated RBC % PT INR APTT Sodium Potassium Chloride Carbon Dioxide Anion Gap BUN Creatinine Estim Creat Clear Calc Estimated GFR Glucose POC Capillary Glucose Lactic Acid Calcium Total Bilirubin AST ALT Alkaline Phosphatase Troponin I 18.000 H* Total Protein Albumin Triglycerides 214 H Cholesterol 124 LDL Cholesterol Direct 47 HDL Direct 36 Lipase Nasal MRSA (PCR) Ethyl Alcohol < 10
--- NOTE | 2025-09-07 10:02 | WPDGICN ---
Assessment and Plan Assessment and plan (1) Pancreatitis: Qualifiers: Chronicity: acute Pancreatitis type: biliary Acute pancreatitis complication: no infection or necrosis Qualified Code(s): K85.10 - Biliary acute pancreatitis without necrosis or infection Code(s): K85.90 - Acute pancreatitis without necrosis or infection, unspecified Status: Acute (2) Elevated liver enzymes: Code(s): R74.8 - Abnormal levels of other serum enzymes Status: Acute (3) ST elevation PR (STEMI): Qualifiers: Involved coronary artery: other coronary artery Qualified Code(s): I21.29 - ST elevation (STEMI) myocardial infarction involving other sites Code(s): I21.3 - ST elevation (STEMI) myocardial infarction of unspecified site Status: Acute Plan 1. Pancreatitis/elevated lipase/gallstones/elevated LFT's/STEMI: Patient presented to the ER today with complaints of lower abdominal pain, nausea and SOB. Patient noted to have an abnormal EKG and positive trops x2 and underwent a cardiac cancerization today for delayed presentation inferior STEMI. Cath results: Occluded branch of the rPL, moderate LM and LAD stenosis and systolic cardiomyopathy. Labs on presentation: Total bilirubin 4.8, AST 854, 561, Alk Phos 218, triglycerides 214 and lipase 10,643. CTA chest/abd/pelvis shows the liver and spleen are normal. There are gallstones in the gallbladder, which is normal in size. There is edema in the head of the pancreas. There is fat stranding and small volume of free fluid in the retroperitoneum, consistent with acute interstitial pancreatitis. Ultrasound done today shows common bile duct measuring 10 mm, hepatomegaly with steatosis and gallstones. Likely gallstones pancreatitis Continue to trend LFTs and if no improvement may consider ERCP with biliary stent recommended antibiotic coverage further recommendations per Dr. Caro Thank you very much for allowing me to share in the care of this very nice patient. This report may have been done utilizing a voice recognition system. Attempts have been made to correct errors. However, there may be uncorrected grammatical, spelling, and recognition errors present. GI Consult Note Consult date/time: 09/07/25 10:02 Reason for consult: Pancreatitis HPI: Scott Zee is a 65 year old male with PMSH of lung cancer post resection with chronic atelectasis in the left lung, coronary artery disease with 5 stents, CKD, HTN, AFib on Eliquis, and COPD. Patient presented to the ER today with complaints of lower abdominal pain and SOB. GI has been consulted for pancreatitis. Patient was accompanied by his Carla at his bedside throughout the entire visit. Patient states that prior to admission he was having lower abdominal pain that he described as a dull aching sensation that had no correlation with food intake or bowel movements. He was having regular daily bowel movements that were formed and non Urgent. He does state that he had a light colored stool prior to admission but this was only a 1 time episode. He was on Protonix 40 mg daily and states that his reflux is well controlled. He denies any upper abdominal pain, nausea, vomit, reflux, regurgitation or swallowing difficulty. He denies any appetite loss, unexplained weight loss early satiety. Denies diarrhea, constipation, hematochezia, or melena. Prior to admission the patient was on Eliquis and aspirin he quit smoking 8 years ago is a nondrinker and denies any marijuana use. Family history negative for GI cancers or IBD. ENDOSCOPY HISTORY: EGD: Patient has never had an EGD COLONOSCOPY: 09/04/[address] Chambers for CRC screening Findings: There was a single 4 mm polyp observed in the ascending colon that was removed There were two 4 mm to 6 mm polyps observed in the transverse colon that were removed A few diverticula were present throughout the colon that were not actively bleeding a few small sized internal hemorrhoids were seen in the rectum that were not bleeding 5 year repeat recommended Bx results: A. ASCENDING COLON POLYP, ENDOSCOPIC REMOVAL: - TUBULAR ADENOMA. B. TRANSVERSE COLON POLYPS x2, ENDOSCOPIC REMOVAL: - TUBULAR ADENOMAS x2 LABS AND STOOL STUDIES: Labs 09/07/2025: WBC 28, Hgb 17, Hct 53, MCV 92, platelets 343, INR 1.4 Sodium 137, potassium 4.8, BUN 32, creatinine 1.49, GFR 48, calcium 9.7, lactic acid 1.6 Total bilirubin 4.8, AST 854, ALT 561, Alkaline Phos 218, albumin 4.1, triglyceride 214, lipase 10,643 Troponin 17.500 and 18.000 IMAGING: Abdominal Ultrasound 09/07/2025: Findings: Liver: Enlarged. Echogenic. No intrahepatic biliary ductal dilatation. Normal hepatopedal flow main portal vein. Common Duct: 10 mm. Gallbladder: Stones. No wall thickening. No pericholecystic fluid. Technologist worksheet does not state if sonographic Santiago's sign exists. Pancreas: Obscured by bowel gas. IMPRESSION: 1. Hepatomegaly, with steatosis. 2. Gallstones. CTA chest/abd/pelvis w/contrast 09/07/2025: CHEST CTA: There is mild emphysema. There is mild atelectasis in right lung. There is complete collapse of left lung. There is a small left pleural effusion with pleural thickening. There is no pulmonary embolus. There is mild aortic atherosclerosis. There is moderate thoracic spondylosis. There is mild chronic anterior wedging of multiple lower thoracic vertebral bodies. ABDOMEN AND PELVIS CTA: The liver and spleen are normal. There are gallstones in the gallbladder, which is normal in size. There is edema in the head of the pancreas. There is fat stranding and small volume of free fluid in the retroperitoneum, consistent with acute interstitial pancreatitis. The adrenal glands are normal. There is cortical thinning of the kidneys. There is a 14 mm stone in left kidney. The prostate is moderately enlarged. There is diverticulosis of the colon without evidence of diverticulitis. The appendix is normal. 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 There is no significant stenosis of superior mesenteric artery, the renal arteries, or inferior mesenteric artery. There is a stent in left common iliac artery with moderate intrastent stenosis. There are no pathologically enlarged lymph nodes. There are chronic bilateral L5 pars defects. There is 4 mm anterolisthesis of L5 on S1. There is mild lumbar spondylosis. IMPRESSION: 1. Complete collapse of left lung. 2. Small left pleural effusion with pleural thickening. 3. Acute interstitial pancreatitis. 4. Severe stenosis of celiac axis. 5. Stent in left common iliac artery with moderate intrastent stenosis. Chest Xray 09/07/2025: IMPRESSION: Large left-sided pleural effusion. Review of Systems Constitutional: Constitutional: Reports as per HPI and Reports fatigue ENT: Reports as per HPI Cardiovascular: Cardiovascular: Reports as per HPI, Reports chest pain (no current chest pain), Denies pedal edema and Denies leg edema Respiratory: Respiratory: Denies cough and Reports dyspnea on exertion Gastrointestinal: Gastrointestinal: Reports as per HPI Musculoskeletal: Musculoskeletal: Reports as per HPI Integumentary/Breasts: Skin/Breast: Reports as per HPI Psychiatric: Psychiatric: Reports as per HPI Endocrine: Endocrine: Reports no additional endocrine complaints Hematologic/Lymphatic: Hematologic/Lymphatic: Reports no additional hematologic/lymphatic complaints [facility] Past Medical History Medical History (Updated 09/07/25 @ 16:18 by Beverly Lombadro APRN) Atrial fibrillation CKD (chronic kidney disease) Heart abnormality Hypoxia Tobacco abuse Hypersomnia Non-small cell lung cancer COPD (chronic obstructive pulmonary disease) Surgical History Surgical History History of cardiac radiofrequency ablation (RFA) 2020 History of coronary artery stent placement Family History Family History (Updated 09/07/25 @ 06:32 by Elva Garcia RN) Mother Family history of cardiovascular disease Family history of anemia Grandparent Cerebrovascular accident Hypertension Family history of anemia Sibling Family history of gynecological problem Cerebrovascular accident Family history of anemia Father Cerebrovascular accident Social History Social History Social History: Caffeine-occasionally Smoking packs per day: 1.25 Smoking cigarettes per day: 25.0 Years smoked: 40 Smoking pack-years: 50.00 Smoking status: Former smoker Tobacco type: cigarettes Second hand tobacco smoke exposure: Yes Smoking end date: 03/23/18 Alcohol intake: current Drinks per week: 1 Alcohol use details: occasionally Substance use: never Substance use type: does not use Lack of Transportation: No Lack of Food: Never True Current Housing: I Have Housing Concerned About Future Housing: No Difficulty Paying Gas/Electric Bills: No Difficulty Paying for Meds: No Currently Unemployed: No Education: Bachelor's Degree Difficulty w/ Childcare or Family Care: No Living arrangements: with family Occupation/Education: occupation Gender identity (if verbalized by the patient): Male Spiritual care concerns: No Agree to blood products: Yes Meds Home Medications and Allergies Home Medications ?Medication ?Instructions ?Recorded ?Confirmed ?Type apixaban 5 mg tablet 5 mg PO BID 07/28/20 09/07/25 History aspirin 81 mg tablet,delayed 81 mg PO DAILY 07/28/20 09/07/25 History release loratadine 10 mg capsule 10 mg PO DAILY 07/28/20 09/07/25 History pantoprazole 40 mg tablet,delayed 40 mg PO QAM 07/28/20 09/07/25 History release sildenafil 100 mg tablet (Viagra) See Rx Instructions .Route 08/30/20 09/07/25 Rx .COMPLEX PRN sexual activity #30 tabs atorvastatin 40 mg tablet 40 mg PO QHS 07/18/21 09/07/25 History evolocumab 140 mg/mL subcutaneous 140 mg subcut .[id number] 07/18/21 09/07/25 History syringe (Repatha Syringe) metoprolol succinate 100 mg 100 mg PO DAILY 07/18/21 09/07/25 History tablet,extended release 24 hr amlodipine 10 mg tablet 10 mg PO HS 08/27/22 09/07/25 History empagliflozin 25 mg tablet 25 mg PO DAILY 08/21/23 09/07/25 History (Jardiance) lisinopril 40 mg tablet 40 mg PO DAILY 09/21/24 09/07/25 History ergocalciferol (vitamin D2) 1,250 See Rx Instructions .Route 05/06/25 09/07/25 Rx mcg (50,000 unit) capsule .COMPLEX #12 caps Allergies Allergy/AdvReac Type Severity Reaction Status Date / Time No Known Allergies Allergy Verified 09/07/25 06:30 Vital Signs Vital Signs - 24 hr 09/07/25 02:17 09/07/25 02:48 09/07/25 03:25 Temperature 97.3 F L Pulse Rate 78 89 83 Pulse Rate [Right Radial Palpation] Respiratory Rate 20 30 H 28 H Blood Pressure 159/85 H 181/106 H 185/92 H Pulse Oximetry 96 97 95 Oxygen Delivery 09/07/25 03:30 09/07/25 03:45 09/07/25 04:00 Temperature Pulse Rate 88 89 81 Pulse Rate [Right Radial Palpation] Respiratory Rate 23 H 18 30 H Blood Pressure 151/86 H 180/88 H 164/83 H Pulse Oximetry 96 94 96 Oxygen Delivery 09/07/25 04:15 09/07/25 04:30 09/07/25 05:49 Temperature 97.7 F Pulse Rate 89 78 78 Pulse Rate [Right Radial Palpation] 78 Respiratory Rate 28 H 23 H 23 H Blood Pressure 160/87 H 155/88 H 164/86 H Pulse Oximetry 94 94 90 Oxygen Delivery 09/07/25 06:00 09/07/25 06:04 09/07/25 06:09 Temperature Pulse Rate 78 77 Pulse Rate [Right Radial Palpation] 78 Respiratory Rate 23 H Blood Pressure 163/86 H 163/86 H Pulse Oximetry 91 Oxygen Delivery Room Air 09/07/25 06:19 09/07/25 06:34 09/07/25 06:49 Temperature Pulse Rate 79 80 80 Pulse Rate [Right Radial Palpation] 79 80 80 Respiratory Rate 22 H 23 H 23 H Blood Pressure 159/112 H 173/90 H 187/96 H Pulse Oximetry 90 92 92 Oxygen Delivery 09/07/25 07:00 09/07/25 07:04 09/07/25 07:35 Temperature Pulse Rate 78 78 82 Pulse Rate [Right Radial Palpation] 78 Respiratory Rate 26 H 26 H 28 H Blood Pressure 166/100 H 166/100 H 167/92 H Pulse Oximetry 93 93 92 Oxygen Delivery 09/07/25 08:00 09/07/25 08:00 09/07/25 08:00 Temperature 97.8 F Pulse Rate 85 85 81 Pulse Rate [Right Radial Palpation] 85 Respiratory Rate 27 H 27 H 24 H Blood Pressure 171/94 H 171/94 H Pulse Oximetry 92 92 93 Oxygen Delivery Room Air 09/07/25 08:15 09/07/25 08:15 09/07/25 09:00 Temperature 98.4 F Pulse Rate 80 81 79 Pulse Rate [Right Radial Palpation] 81 Respiratory Rate 24 H 21 H Blood Pressure 168/94 H 170/99 H Pulse Oximetry 93 90 Oxygen Delivery 09/07/25 09:04 Temperature Pulse Rate Pulse Rate [Right Radial Palpation] 81 Respiratory Rate Blood Pressure Pulse Oximetry Oxygen Delivery Exam Const: General: cooperative, comfortable, no acute distress and well developed Orientation/consciousness: oriented to person, oriented to place, oriented to time and patient oriented x3 HENMT: Head: normal to inspection, normocephalic and atraumatic Mouth: Yes Normal oral and palatal mucosa present and Yes moist mucous membranes Eyes: General: appearance normal, both eyes and all related structures Conjunctivae: conjunctivae normal Sclera: abnormal sclerae (scleral icterus) Pupils: Equal, round and reactive pupils present Neck: Neck: normal visual inspection Chest: Chest palpation & inspection: normal inspection of the chest Resp: Effort & Inspection: normal respiratory effort and able to speak in complete sentences Auscultation: clear to auscultation bilaterally Cardio: Jugular venous distension: no JVD Rate: tachycardic Rhythm: regular rhythm Heart sounds: S1 normal heart sound present and S2 normal heart sound present GI: Inspection: distended GI Palp: Yes Soft to palpation, No Tenderness to palpation present (GI), No Guarding due to palpation present (GI) and Yes No hepatosplenomegaly present Auscultation: normal bowel sounds Rectal Exam: deferred Skin: General skin exam: No normal color (jaundice) and no rashes or lesions noted Neuro: General: oriented to person, oriented to place, oriented to time and patient oriented x3 Cranial nerves: Yes Equal, round and reactive pupils present Speech: normal speech Extrem: General: normal to inspection and no clubbing, cyanosis or edema Psych: Appearance: grossly normal and well kempt Affect: normal affect Results Labs 09/07/25 11:18 09/07/25 13:00 Labs: Short CBC 09/07/25 Range/Units 02:47 WBC 28.0 H (4.5-10.0) K/mm3 Hgb 16.8 (14.0-18.0) g/dL Hct 52.5 H (42.0-52.0) % Plt Count 343 D (150-375) k/mm3 BMP 09/07/25 02:47 Sodium 137 Potassium 4.8 Chloride 98 Carbon Dioxide 29 BUN 32 H D Creatinine 1.49 H Glucose 193 H Calcium 9.7 Cardiac Enzymes 09/07/25 09/07/25 Range/Units 02:47 08:12 Troponin I 17.500 H* 18.000 H* (0.000-0.034) ng/mL Liver Function 09/07/25 Range/Units 02:47 Total Bilirubin 4.8 H (0.2-1.3) mg/dL AST 854 H (17-59) U/L ALT 561 H (6-50) U/L Alkaline Phosphatase 218 H (38-126) U/L Albumin 4.1 (3.5-5.1) g/dL
[2025-09-07 10:05] LABS: Hepatitis B Surface Antigen Negative (Negative)
[2025-09-07 10:11] LABS: HAV RESULT Negative (Negative); Hepatitis B Core IgM Result Negative (Negative)
[2025-09-07] MEDS: DORNASE ALFA INH SOLN 1 MG/ML 2.5 ML AMP 2.5 MG INHALATION (10:53)
[2025-09-07] MEDS: HYDROmorphone HCL INJ (*CRX) 1 MG/ML SYR 0.5 MG IV PUSH ×3 (10:57→20:03)
[2025-09-07 11:29] LABS: Hematocrit 49.3 % (42.0-52.0); Hemoglobin 15.9 g/dL (14.0-18.0); Immature Granulocyte Percent A 1.2 % (0-0.5); Lymphocytes Absolute Auto 0.86 K/mm3 (0.9-3.2); Mean Corpuscular HGB Conc 32.3 g/dl (32-36); Mean Corpuscular Hemoglobin 29.7 pg (26-34); Mean Corpuscular Volume 92.0 fl (80-100); Nucleated Red Blood Cells Absolute Auto 0.000 K/mm3 (0.0-0.012); Nucleated Red Blood Cells Perc 0.0 % (0.0-0.2); Platelet Count Result 287 k/mm3 (150-375); Red Blood Count 5.36 M/mm3 (4.6-6.20); White Blood Count 21.5 K/mm3 (4.5-10.0)
--- NOTE | 2025-09-07 11:32 | PCFNICU ---
ICU Rounding Note: Pt current nutrition is NPO. Last recorded weight is 99.3 kg. Bowel Motility: Last reported BM 09/06 Labs Reviewed: Glu 193, BUN 32, ,Cr 1.49, Hct 52.5 Meds Noted: Protonix, Heparin, Lopressor Skin: WNL Additional Notes: Patient currently NPO. GI Consult. No plans for nutrition today. Following daily in ICU rounds.
[2025-09-07 11:39] LABS: INR 1.3; Prothrombin Time 15.9 Seconds (11.1-14.7)
[2025-09-07 11:40] LABS: Partial Thromboplastin Time 28.6 Seconds (22.3-36.8)
[2025-09-07 12:05] LABS: Troponin I 14.900 ng/mL (0.000-0.034)
[2025-09-07] MEDS: HEPARIN SOD/D5W 100 UNITS/ML 25,000 UNITS/250 ML BAG 15 UNITS IV CONT (12:16)
[2025-09-07] MEDS: PANTOPRAZOLE SODIUM IV 40 MG VIAL IV PUSH (12:16)
[2025-09-07] MEDS: IPRATROPIUM 0.5 MG/ALBUTEROL SULFATE 2.5 MG (BASE) AMPUL.NEB 3 ML INHALATION ×2 (14:16→20:05)
[2025-09-07 14:35] LABS: Alanine Aminotransferase 526 U/L (6-50); Albumin Level 3.4 g/dL (3.5-5.1); Alkaline Phosphatase 210 U/L (38-126); Anion Gap 6 mmol/L (4-12); Aspartate Amino Transferase 670 U/L (17-59); Bilirubin,Total 5.3 mg/dL (0.2-1.3); Blood Urea Nitrogen 25 mg/dL (9-20); Calcium 9.2 mg/dL (8.4-10.2); Carbon Dioxide 29 mmol/L (22-30); Chloride 100 mmol/L (98-107); Estimated CRCL calculation 63 ml/min; Estimated Glomerular Filt Rate > 60; Glucose 154 mg/dL (65-110); Magnesium 1.4 mg/dL (1.6-2.3); Potassium 4.4 mmol/L (3.4-5.0); Sodium 135 mmol/L (137-145); Total Protein 6.3 g/dL (6.3-8.2)
[2025-09-07] MEDS: MAGNESIUM SULF 2 GM/WATER 50ML 2 GM/50 ML BAG IVPB (14:54)
[2025-09-07 15:06] LABS: Lipase 4741 U/L (23-300)
[2025-09-07] MEDS: PIPERACILLIN/TAZOBACTAM SOD 3.375 GM in SODIUM CHLORIDE 0.9% IV 50 ML 100 ML IVPB (18:20)
[2025-09-07 18:41] LABS: Partial Thromboplastin Time 76.4 Seconds (22.3-36.8)
[2025-09-08] VITALS (27 sets, daily range): BP systolic 120–167; BP diastolic 60–98; PULSE 65–95; RESP 13–24; TEMP 36.4–36.9; O2SAT 20–98
[2025-09-08 00:01] LABS: Hematocrit 47.7 % (42.0-52.0); Hemoglobin 15.3 g/dL (14.0-18.0); Mean Corpuscular HGB Conc 32.1 g/dl (32-36); Mean Corpuscular Hemoglobin 29.7 pg (26-34); Mean Corpuscular Volume 92.6 fl (80-100); Platelet Count Result 211 k/mm3 (150-375); Red Blood Count 5.15 M/mm3 (4.6-6.20); White Blood Count 23.0 K/mm3 (4.5-10.0)
[2025-09-08] MEDS: PIPERACILLIN/TAZOBACTAM SOD 3.375 GM in SODIUM CHLORIDE 0.9% IV 50 ML 100 ML IVPB ×4 (00:08→18:09)
[2025-09-08] MEDS: LACTATED RINGERS 1,000 ML 125 ML IV CONT ×2 (00:11→08:03)
[2025-09-08] MEDS: HYDROmorphone HCL INJ (*CRX) 1 MG/ML SYR 0.5 MG IV PUSH ×6 (00:12→21:46)
[2025-09-08 00:26] LABS: Partial Thromboplastin Time 75.1 Seconds (22.3-36.8)
[2025-09-08 00:39] LABS: Anion Gap 6 mmol/L (4-12); Blood Urea Nitrogen 20 mg/dL (9-20); CRP 18.2 mg/dL (<1.0); Calcium 9.1 mg/dL (8.4-10.2); Carbon Dioxide 28 mmol/L (22-30); Chloride 99 mmol/L (98-107); Estimated CRCL calculation 65 ml/min; Estimated Glomerular Filt Rate > 60; Glucose 141 mg/dL (65-110); Potassium 4.4 mmol/L (3.4-5.0); Sodium 133 mmol/L (137-145)
[2025-09-08] MEDS: IPRATROPIUM 0.5 MG/ALBUTEROL SULFATE 2.5 MG (BASE) AMPUL.NEB 3 ML INHALATION ×3 (01:44→20:36)
[2025-09-08] MEDS: HEPARIN SOD/D5W 100 UNITS/ML 25,000 UNITS/250 ML BAG 15 UNITS IV CONT (03:57)
[2025-09-08 04:23] LABS: Hematocrit 45.0 % (42.0-52.0); Hemoglobin 14.7 g/dL (14.0-18.0); Immature Granulocyte Percent A 0.9 % (0-0.5); Lymphocytes Absolute Auto 0.94 K/mm3 (0.9-3.2); Mean Corpuscular HGB Conc 32.7 g/dl (32-36); Mean Corpuscular Hemoglobin 30.1 pg (26-34); Mean Corpuscular Volume 92.2 fl (80-100); Nucleated Red Blood Cells Absolute Auto 0.000 K/mm3 (0.0-0.012); Nucleated Red Blood Cells Perc 0.0 % (0.0-0.2); Platelet Count Result 204 k/mm3 (150-375); Red Blood Count 4.88 M/mm3 (4.6-6.20); White Blood Count 24.4 K/mm3 (4.5-10.0)
[2025-09-08 04:44] LABS: Partial Thromboplastin Time 67.9 Seconds (22.3-36.8)
[2025-09-08 04:45] LABS: Alanine Aminotransferase 371 U/L (6-50); Albumin Level 3.5 g/dL (3.5-5.1); Alkaline Phosphatase 185 U/L (38-126); Anion Gap 6 mmol/L (4-12); Aspartate Amino Transferase 235 U/L (17-59); Bilirubin,Total 3.5 mg/dL (0.2-1.3); Blood Urea Nitrogen 21 mg/dL (9-20); Calcium 9.1 mg/dL (8.4-10.2); Carbon Dioxide 25 mmol/L (22-30); Chloride 102 mmol/L (98-107); Estimated CRCL calculation 64 ml/min; Estimated Glomerular Filt Rate > 60; Glucose 135 mg/dL (65-110); Lipase 1484 U/L (23-300); Magnesium 1.8 mg/dL (1.6-2.3); Potassium 4.4 mmol/L (3.4-5.0); Sodium 133 mmol/L (137-145); Total Protein 6.7 g/dL (6.3-8.2)
[2025-09-08 04:54] LABS: Burr Cells 1+; Ovalocytes Occasional; Schistocytes None Seen
[2025-09-08] MEDS: MAGNESIUM SULF 2 GM/WATER 50ML 2 GM/50 ML BAG IVPB (08:02)
[2025-09-08] MEDS: PANTOPRAZOLE SODIUM IV 40 MG VIAL IV PUSH (08:05)
[2025-09-08] MEDS: ASPIRIN 81 MG ENTERIC TABLET PO (08:06)
[2025-09-08] MEDS: CLOPIDOGREL BISULFATE 75 MG TABLET PO (08:06)
[2025-09-08] MEDS: METOPROLOL TARTRATE 50 MG TAB PO ×2 (08:06→20:21)
--- NOTE | 2025-09-08 09:03 | P.PNCA_ITS ---
Progress Note: A&P Assessment and Plan (1) ST elevation myocardial infarction (STEMI) of inferior wall: Code(s): I21.19 - ST elevation (STEMI) myocardial infarction involving other coronary artery of inferior wall Status: Acute (2) Atrial fibrillation: Code(s): I48.91 - Unspecified atrial fibrillation Status: Acute (3) Peripheral vascular disease: Code(s): I73.9 - Peripheral vascular disease, unspecified Status: Acute (4) Coronary artery disease: Code(s): I25.10 - Atherosclerotic heart disease of 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 The distal left main coronary artery has 40-50% stenosis. 2. Left anterior descending: The LAD is a large caliber vessel. The ostial LAD has 60-70% stenosis. There is a patent stent in the proximal LAD. The remainder of the LAD has luminal irregularities. The 1st major diagonal branch is a moderate caliber vessel with 30-40% mid stenosis. 3. Left circumflex: The left circumflex artery is a nondominant vessel providing 3 OM branches. OM1 has 20-30% mid stenosis. OM2 is small and insignificant. OM3 has diffuse 10% stenosis. The left circumflex has 10-20% stenosis prior to leading into the OM3 vessel. 4. Right coronary artery: The RCA is a large dominant vessel with patent proximal to mid stents. There is diffuse 105 stenosis throughout the vessel. The rPDA has 50-60% stenosis at its ostium followed by luminal irregularities. The rPL branch gives off 2 branches. 1 of the 2 rPL branches goes on to branch into further smaller vessels, one of which has a thrombus. The contrast eventually clears from this distal vessel. -Medical management of his CAD in small, distal vessels. -Started heparin this morning after TR band removed (Heparin chosen over lovenox in the event patient undergoes MRCP) -If no further procedures planned can restart apixaban and continue triple therapy with ASA, Plavix for one month, then ASA can be discontinued. Paroxysmal atrial fibrillation -remains in NSR today -resume IV heparin post ERCP and can restart Eliquis when cleared Chronic systolic heart failure -last left ventricular systolic function evaluated at EF of 40% -continue guideline directed medical therapy with lisinopril 40 mg daily and Metoprolol 50 mg BID -can consider addition of farxiga -CXR today showed complete opacification of left hemothorax -will update pBNP and can use IV diuresis as needed Coronary artery disease status post PCI -continue aspirin 81 mg p.o. 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 daily Hypertension -patient BP elevated most likely secondary to abdominal pain -prn hydralazine is ordered -continue oral meds as able Left lung collapse -noted on CT chest and follow up CXR -history of left lung ca -will need pulmonary evaluation prior to any anesthesia Acute pancreatitis -with associated leukocytosis, elevated LFTs, lipase and abdominal pain -with cholangitis concern per GI -planned for ERCP Severe Celiac artery stenosis From CV standpoint would be higher risk for planned anesthesia and will need close monitoring alicia and post procedure of his volume status However, he has collapse of left lung and would recommend that pulmonary weighs in before any procedure under general anesthesia performed. Subjective Date/time seen: 09/08/25 09:03 Interval history: Date of Service 09/08/25-Patient is sitting up in bed. He complains of abdominal pain. He is planned for ERCP this am and heparin is on hold. He denies any chest pain or pressure. Feels as though he cannot take a deep breath in with his abdominal discomfort. No palpitations Review of Systems Review of Systems: All systems reviewed & are unremarkable except as noted in HPI and below Exam Const: General: comfortable and no acute distress Neck: Neck: supple and no JVD Resp: Effort & Inspection: normal respiratory effort Auscultation: clear to auscultation bilaterally Cardio: Rate: regular rate Rhythm: regular rhythm Heart sounds: no gallops, no murmurs and no rubs Skin: General skin exam: normal color Extrem: General: normal to inspection and no edema Other: rt radial cath site is S/D/I no hematoma Psych: Mental Status: mental status grossly normal Objective Data Vital Signs Vital Signs: Vital Signs - 24 hr 09/07/25 09:04 09/07/25 09:15 09/07/25 10:00 Temperature 36.5 C Pulse Rate 105 H 84 Pulse Rate [Right Radial Palpation] 81 Respiratory Rate 35 H 30 H Blood Pressure 191/98 H 155/88 H Pulse Oximetry 92 93 Oxygen Delivery Oxygen Flow Rate Fraction of Inspired Oxygen 09/07/25 10:00 09/07/25 10:30 09/07/25 10:53 Temperature 36.5 C Pulse Rate 83 84 76 Pulse Rate [Right Radial Palpation] Respiratory Rate 30 H 24 H Blood Pressure 155/88 H Pulse Oximetry 93 93 Oxygen Delivery Room Air Oxygen Flow Rate Fraction of Inspired Oxygen 21 09/07/25 10:53 09/07/25 11:00 09/07/25 11:04 Temperature Pulse Rate 76 70 73 Pulse Rate [Right Radial Palpation] Respiratory Rate 24 H 22 H 17 Blood Pressure 137/88 Pulse Oximetry 93 Oxygen Delivery Oxygen Flow Rate Fraction of Inspired Oxygen 09/07/25 12:00 09/07/25 12:00 09/07/25 12:00 Temperature Pulse Rate 62 62 62 Pulse Rate [Right Radial Palpation] Respiratory Rate 20 20 Blood Pressure 136/79 Pulse Oximetry 90 90 Oxygen Delivery Room Air Oxygen Flow Rate Fraction of Inspired Oxygen 09/07/25 13:00 09/07/25 14:00 09/07/25 14:00 Temperature Pulse Rate 70 65 65 Pulse Rate [Right Radial Palpation] Respiratory Rate 20 21 H Blood Pressure 141/84 H 156/77 H Pulse Oximetry 93 89 L Oxygen Delivery Oxygen Flow Rate Fraction of Inspired Oxygen 09/07/25 14:16 09/07/25 14:25 09/07/25 15:00 Temperature 36.6 C Pulse Rate 64 70 80 Pulse Rate [Right Radial Palpation] Respiratory Rate 21 H 20 22 H Blood Pressure 162/88 H Pulse Oximetry 92 Oxygen Delivery Oxygen Flow Rate Fraction of Inspired Oxygen 09/07/25 16:00 09/07/25 16:00 09/07/25 16:00 Temperature 36.4 C Pulse Rate 73 73 73 Pulse Rate [Right Radial Palpation] Respiratory Rate 16 16 Blood Pressure 130/80 Pulse Oximetry 92 92 Oxygen Delivery Room Air Oxygen Flow Rate Fraction of Inspired Oxygen 09/07/25 17:00 09/07/25 18:00 09/07/25 18:00 Temperature 36.6 C Pulse Rate 77 78 78 Pulse Rate [Right Radial Palpation] Respiratory Rate 19 22 H Blood Pressure 154/85 H 146/86 H Pulse Oximetry 96 98 Oxygen Delivery Oxygen Flow Rate Fraction of Inspired Oxygen 09/07/25 19:00 09/07/25 19:50 09/07/25 20:00 Temperature 37.1 C Pulse Rate 80 80 83 Pulse Rate [Right Radial Palpation] Respiratory Rate 24 H 24 H 22 H Blood Pressure 133/75 134/71 Pulse Oximetry 96 96 96 Oxygen Delivery Room Air Oxygen Flow Rate Fraction of Inspired Oxygen 09/07/25 20:00 09/07/25 20:03 09/07/25 20:05 Temperature Pulse Rate 83 76 78 Pulse Rate [Right Radial Palpation] Respiratory Rate 16 Blood Pressure Pulse Oximetry 96 Oxygen Delivery Nasal Cannula Oxygen Flow Rate 2 Fraction of Inspired Oxygen 09/07/25 20:05 09/07/25 20:12 09/07/25 21:00 Temperature Pulse Rate 78 77 75 Pulse Rate [Right Radial Palpation] Respiratory Rate 16 16 19 Blood Pressure 129/78 Pulse Oximetry 96 Oxygen Delivery Oxygen Flow Rate Fraction of Inspired Oxygen 09/07/25 22:00 09/07/25 22:00 09/07/25 23:00 Temperature Pulse Rate 76 76 66 Pulse Rate [Right Radial Palpation] Respiratory Rate 24 H 20 Blood Pressure 144/84 H 139/84 Pulse Oximetry 96 97 Oxygen Delivery Oxygen Flow Rate Fraction of Inspired Oxygen 09/08/25 00:00 09/08/25 00:00 09/08/25 00:15 Temperature 36.9 C Pulse Rate 74 77 74 Pulse Rate [Right Radial Palpation] Respiratory Rate 18 18 Blood Pressure 147/86 H Pulse Oximetry 95 95 Oxygen Delivery Nasal Cannula Oxygen Flow Rate 2 Fraction of Inspired Oxygen 09/08/25 01:00 09/08/25 01:44 09/08/25 02:00 Temperature Pulse Rate 65 72 69 Pulse Rate [Right Radial Palpation] Respiratory Rate 18 16 Blood Pressure 120/72 Pulse Oximetry 95 Oxygen Delivery Oxygen Flow Rate Fraction of Inspired Oxygen 09/08/25 02:00 09/08/25 02:00 09/08/25 03:00 Temperature Pulse Rate 65 70 67 Pulse Rate [Right Radial Palpation] Respiratory Rate 20 19 19 Blood Pressure 138/86 122/72 Pulse Oximetry 90 90 Oxygen Delivery Oxygen Flow Rate Fraction of Inspired Oxygen 09/08/25 03:51 09/08/25 04:00 09/08/25 04:00 Temperature 36.4 C Pulse Rate 77 72 77 Pulse Rate [Right Radial Palpation] Respiratory Rate 22 H 22 H Blood Pressure 137/78 Pulse Oximetry 97 97 Oxygen Delivery Nasal Cannula Oxygen Flow Rate 2 Fraction of Inspired Oxygen 09/08/25 05:00 09/08/25 06:00 09/08/25 06:00 Temperature Pulse Rate 74 76 76 Pulse Rate [Right Radial Palpation] Respiratory Rate 23 H 18 Blood Pressure 147/87 H 146/98 H Pulse Oximetry 98 96 Oxygen Delivery Oxygen Flow Rate Fraction of Inspired Oxygen 09/08/25 07:00 09/08/25 08:00 09/08/25 08:00 Temperature Pulse Rate 75 82 82 Pulse Rate [Right Radial Palpation] Respiratory Rate 24 H 17 16 Blood Pressure 167/92 H Pulse Oximetry 97 96 Oxygen Delivery Nasal Cannula Oxygen Flow Rate 2 Fraction of Inspired Oxygen 09/08/25 08:00 09/08/25 08:06 Temperature 36.5 C Pulse Rate 84 84 Pulse Rate [Right Radial Palpation] Respiratory Rate 24 H Blood Pressure 156/79 H Pulse Oximetry 96 Oxygen Delivery Oxygen Flow Rate Fraction of Inspired Oxygen Intake/Output Intake/Output: Intake & Output 09/05/25 09/06/25 09/07/25 09/08/25 23:59 23:59 23:59 23:59 Intake Total 1271.5 1987.8 Output Total 1775 775 Balance -503.5 1212.8 Meds/Results Medications: Active Medications Generic Name Dose Route Start Last Admin Trade Name Freq PRN Reason Stop Dose Admin Albuterol/Ipratropium 3 ml 09/07/25 14:00 09/08/25 07:56 Ipratropium 0.5 Mg/Albuterol Sulfate 2.5 Mg (Base) Ampul.Neb 3 Ml INHALATION 3 ml Q6HRT FRANCIS Administration Amlodipine Besylate 10 mg 09/07/25 09:00 09/08/25 08:06 Amlodipine Besylate 10 Mg Tablet PO 10 mg DAILY FRANCIS Administration Aspirin 81 mg 09/07/25 09:00 09/08/25 08:06 Aspirin 81 Mg Enteric Tablet PO 81 mg QAM FRANCIS Administration Clopidogrel Bisulfate 75 mg 09/07/25 09:00 09/08/25 08:06 Clopidogrel Bisulfate 75 Mg Tablet PO 75 mg QAM FRANCIS Administration Dextrose 12.5 gm 09/07/25 07:51 Dextrose 50% 25 Gm/50 Ml Syringe IV PUSH PRN PRN Hypoglycemia Protocol Glucagon 1 mg 09/07/25 07:51 Glucagon For Inj 1 Mg Vial IM PRN PRN Hypoglycemia Protocol Glucose 15 gm 09/07/25 07:51 Glucose Oral Gel 15 Gm Of Glucse In 37.5 Gm Tube PO PRN PRN Hypoglycemia Protocol Heparin Sodium (Porcine) 7,000 units 09/07/25 10:15 Heparin Sodium 5,000 Units/Ml Vial IV PUSH PRN PRN aPTT less than 55 seconds Heparin Sodium (Porcine) 3,500 units 09/07/25 10:15 09/08/25 05:01 Heparin Sodium 5,000 Units/Ml Vial IV PUSH 3,500 units PRN PRN Administration aPTT 55 - 70 seconds Hydralazine HCl 10 mg 09/07/25 07:47 09/07/25 09:22 Hydralazine Hcl 20 Mg/Ml Vial IV PUSH 10 mg Q4H PRN Administration Blood Pressure - High Hydromorphone HCl 0.5 mg 09/07/25 09:41 09/08/25 08:10 Hydromorphone Hcl Inj (*Crx) 1 Mg/Ml Syr IV PUSH 0.5 mg Q4H PRN Administration Pain Rated 7-10 Lactated Ringer's 1,000 mls @ 125 mls/hr 09/07/25 09:15 09/08/25 08:03 Lr - Lactated Ringers Iv IV CONT 125 mls/hr .Q8H FRANCIS Administration Dextrose 1,000 mls @ 100 mls/hr 09/07/25 07:51 Dextrose 5% 1,000 Ml IVPB PRN PRN Hypoglycemia Protocol Heparin Sodium/Dextrose 25,000 units in 250 mls @ 17 mls/hr 09/07/25 10:10 09/08/25 05:00 Heparin Sodium/D5w 100 Units/Ml IV CONT 1,700 units/hr .[id number] FRANCIS 17 mls/hr Protocol Titration 1,700 UNITS/HR Piperacillin Sod/Tazobactam 50 mls @ 100 mls/hr 09/07/25 18:00 09/08/25 05:08 Sod 3.375 gm/ Sodium Chloride IVPB 100 mls/hr Q6H FRANCIS Administration Insulin Aspart 3 - 6 units 09/07/25 12:00 09/08/25 05:01 Insulin Aspart (*Bkc) 100 Units/Ml SUB-Q Not Given Q6HR [facility] Protocol Lisinopril 40 mg 09/07/25 09:00 09/08/25 08:06 Lisinopril 20 Mg Tablet PO 40 mg DAILY FRANCIS Administration Metoprolol Tartrate 50 mg 09/07/25 09:00 09/08/25 08:06 Metoprolol Tartrate 50 Mg Tab PO 50 mg Q12HR FRANCIS Administration Pantoprazole Sodium 40 mg 09/08/25 09:00 09/08/25 08:05 Pantoprazole Sodium Iv 40 Mg Vial IV PUSH 40 mg QAM FRANCIS Administration Radiology Results: ITS Impressions Chest/Abdomen/Pelvis CTA 09/07/25 06:24 IMPRESSION: 1. Complete collapse of left lung. 2. Small left pleural effusion with pleural thickening. 3. Acute interstitial pancreatitis. 4. Severe stenosis of celiac axis. 5. Stent in left common iliac artery with moderate intrastent stenosis. Abdomen Ultrasound 09/07/25 10:33 IMPRESSION: 1. Hepatomegaly, with steatosis. 2. Gallstones. Chest X-Ray 09/08/25 07:53 IMPRESSION: 1. No gross interval change from yesterday. Complete opacification of the left hemithorax. Labs Labs: Laboratory Results - last 24 hr 09/07/25 09/07/25 09/07/25 08:12 09:23 11:16 WBC RBC Hgb Hct MCV MCH MCHC RDW Plt Count MPV Immature Gran % (Auto) Neut % (Auto) Lymph % (Auto) [place] % (Auto) Eos % (Auto) Baso % (Auto) Lymph # (Auto) [place] # (Auto) Eos # (Auto) Baso # (Auto) Abs Immat Gran (auto) Absolute Neuts (auto) Absolute Nucleated RBC Band Neutrophils % Nucleated RBC % Platelet Estimate Ovalocytes Trudy Cells Schistocytes PT INR APTT Sodium Potassium Chloride Carbon Dioxide Anion Gap BUN Creatinine Estim Creat Clear Calc Estimated GFR Glucose POC Capillary Glucose 169 H Lactic Acid 1.6 Calcium Phosphorus Magnesium Total Bilirubin AST ALT Alkaline Phosphatase Troponin I C-Reactive Protein Total Protein Albumin Lipase Hepatitis A IgM Ab Negative Hep Bs Antigen Negative Hep B Core IgM Ab Negative Hepatitis C Ab Screen Negative 09/07/25 09/07/25 09/07/25 11:18 13:00 16:45 WBC 21.5 H RBC 5.36 Hgb 15.9 Hct 49.3 MCV 92.0 MCH 29.7 MCHC 32.3 RDW 14.3 Plt Count 287 MPV 9.5 Immature Gran % (Auto) 1.2 H Neut % (Auto) 91.6 H Lymph % (Auto) 4.0 L [place] % (Auto) 3.0 Eos % (Auto) 0.1 Baso % (Auto) 0.1 L Lymph # (Auto) 0.86 L Dawes # (Auto) 0.7 H Eos # (Auto) 0.0 Baso # (Auto) 0.0 Abs Immat Gran (auto) 0.26 H Absolute Neuts (auto) 19.7 H Absolute Nucleated RBC 0.000 Band Neutrophils % Nucleated RBC % 0.0 Platelet Estimate Ovalocytes Trudy Cells Schistocytes PT 15.9 H INR 1.3 APTT 28.6 Sodium 135 L Potassium 4.4 Chloride 100 Carbon Dioxide 29 Anion Gap 6 BUN 25 H Creatinine 1.17 Estim Creat Clear Calc 63 Estimated GFR > 60 Glucose 154 H POC Capillary Glucose 150 H Lactic Acid Calcium 9.2 Phosphorus 4.0 Magnesium 1.4 L Total Bilirubin 5.3 H AST 670 H ALT 526 H Alkaline Phosphatase 210 H Troponin I 14.900 H* C-Reactive Protein Total Protein 6.3 Albumin 3.4 L Lipase 4741 H Hepatitis A IgM Ab Hep Bs Antigen Hep B Core IgM Ab Hepatitis C Ab Screen 09/07/25 09/07/25 09/08/25 18:23 23:55 00:00 WBC 23.0 H RBC 5.15 Hgb 15.3 Hct 47.7 MCV 92.6 MCH 29.7 MCHC 32.1 RDW 14.4 Plt Count 211 MPV 9.4 Immature Gran % (Auto) Neut % (Auto) Lymph % (Auto) [place] % (Auto) Eos % (Auto) Baso % (Auto) Lymph # (Auto) Dawes # (Auto) Eos # (Auto) Baso # (Auto) Abs Immat Gran (auto) Absolute Neuts (auto) Absolute Nucleated RBC Band Neutrophils % Nucleated RBC % Platelet Estimate Ovalocytes [place] Cells Schistocytes PT INR APTT 76.4 H 75.1 H Sodium 133 L Potassium 4.4 Chloride 99 Carbon Dioxide 28 Anion Gap 6 BUN 20 Creatinine 1.13 Estim Creat Clear Calc 65 Estimated GFR > 60 Glucose 141 H POC Capillary Glucose Lactic Acid Calcium 9.1 Phosphorus Magnesium Total Bilirubin AST ALT Alkaline Phosphatase Troponin I C-Reactive Protein 18.2 H Total Protein Albumin Lipase Hepatitis A IgM Ab Hep Bs Antigen Hep B Core IgM Ab Hepatitis C Ab Screen 09/08/25 09/08/25 09/08/25 00:06 04:13 07:46 WBC 24.4 H RBC 4.88 Hgb 14.7 Hct 45.0 MCV 92.2 MCH 30.1 MCHC 32.7 RDW 14.4 Plt Count 204 MPV 9.5 Immature Gran % (Auto) 0.9 H Neut % (Auto) 91.4 H Lymph % (Auto) 3.9 L [place] % (Auto) 3.5 Eos % (Auto) 0.1 Baso % (Auto) 0.2 Lymph # (Auto) 0.94 [place]es # (Auto) 0.9 H Eos # (Auto) 0.0 Baso # (Auto) 0.0 Abs Immat Gran (auto) 0.21 H Absolute Neuts (auto) 22.3 H Absolute Nucleated RBC 0.000 Band Neutrophils % Not Reportable Nucleated RBC % 0.0 Platelet Estimate Adequate Ovalocytes Occasional Trudy Cells 1+ Schistocytes None seen PT INR APTT 67.9 H Sodium 133 L Potassium 4.4 Chloride 102 Carbon Dioxide 25 Anion Gap 6 BUN 21 H Creatinine 1.15 Estim Creat Clear Calc 64 Estimated GFR > 60 Glucose 135 H POC Capillary Glucose 149 H 140 H Lactic Acid 0.8 Calcium 9.1 Phosphorus 3.9 Magnesium 1.8 Total Bilirubin 3.5 H AST 235 H ALT 371 H Alkaline Phosphatase 185 H Troponin I C-Reactive Protein Total Protein 6.7 Albumin 3.5 Lipase 1484 H Hepatitis A IgM Ab Hep Bs Antigen Hep B Core IgM Ab Hepatitis C Ab Screen
--- NOTE | 2025-09-08 11:06 | PCFNICU ---
ICU Rounding Note: Pt current nutrition is NPO. Nutrition recommendation: advance when medically able to Heart Healthy diet. Last recorded weight is 97 kg. Bowel Motility: No BM reported Labs Reviewed: Glu 135, Na 133, BUN 21 Meds Noted: Protonix, Heparin, Lopressor, LR Skin: WNL Additional Notes: Patient remains NPO. Plans for ERCP today. Agree with diet orders at this time. Following daily in ICU rounds.
--- NOTE | 2025-09-08 11:22 | P.PNINT_ITS ---
Assessment and Plan Assessment and Plan (1) Pancreatitis: Qualifiers: Chronicity: acute Pancreatitis type: biliary Acute pancreatitis complication: no infection or necrosis Qualified Code(s): K85.10 - Biliary acute pancreatitis without necrosis or infection Code(s): K85.90 - Acute pancreatitis without necrosis or infection, unspecified Status: Acute Assessment and Plan: Patient presented with abdominal pain, nausea, vomiting -lipase levels was 10,643 -patient also had a concomitant ST-elevation AK -adequately fluid-resuscitated -triglyceride levels a 214 (normal levels of 150) -09/07/2025: RUQ ultrasound: Showed hepatomegaly with steatosis and gallstones, common bile duct 10 mm, no intrahepatic biliary ductal dilatation -alcohol level < 10, patient denies any alcohol abuse, states he drinks 1 [place] every couple of weeks -patient started on maintenance IV fluids -started Zosyn for cholangitis (09/07) -pain control with Dilaudid -appreciate GI evaluation and recommendation, MRCP today (09/08) (2) Elevated liver enzymes: Code(s): R74.8 - Abnormal levels of other serum enzymes Status: Acute Assessment and Plan: Elevated liver enzymes could be related to pancreatitis, STEMI, decreased perfusion -RUQ ultrasound as above -hepatitis panel was negative -likely related to gallstone pancreatitis, cholangitis -LFTs and bilirubin improving, continue antibiotics as above for cholangitis (3) ST elevation [place] (STEMI): Qualifiers: Involved coronary artery: other coronary artery Qualified Code(s): I21.29 - ST elevation (STEMI) myocardial infarction involving other sites Code(s): I21.3 - ST elevation (STEMI) myocardial infarction of unspecified site Status: Acute Assessment and Plan: Inferior ST-elevation AK on EKG, status post cardiac catheterization showed occluded branch of the RPL, moderate left main and LAD stenosis, systolic cardiomyopathy with severe hypokinesis of the inferior wall, medical management. -09/07: continue heparin infusion for 48 hours -patient started on aspirin, clopidogrel -continue lisinopril, amlodipine and metoprolol 05/2020: Echocardiogram: EF 20% (4) Acute kidney injury: Code(s): N17.9 - Acute kidney failure, unspecified Status: Acute Assessment and Plan: Acute kidney injury likely related to ST-elevation [place], - gently hydrate -continue to monitor urine output, renal function and electrolyte (5) Collapse of left lung: Code(s): J98.11 - Atelectasis Status: Acute Assessment and Plan: Collapse of the left lung, patient does have a history of non-small cell lung cancer on the left side. Collapse of left lung is chronic since 2020 her program management professional and the patient. -patient currently on oxygen via 2 L nasal cannula -continue bronchodilator (6) Peripheral vascular disease: Code(s): I73.9 - Peripheral vascular disease, unspecified Status: Acute Assessment and Plan: Patient has a history of peripheral vascular disease with [employer] stent Patient also has severe stenosis of celiac axis, -consulted surgery, date on take care of celiac axis occlusions, if conditions worsens, patient may have to be transferred to higher level of care -lactic acid 1.6, -09/07/25: CTA chest abdomen and pelvis IMPRESSION: 1. Complete collapse of left lung. 2. Small left pleural effusion with pleural thickening. 3. Acute interstitial pancreatitis. 4. Severe stenosis of celiac axis. 5. Stent in left common iliac artery with moderate intrastent stenosis. (7) Atrial fibrillation: Code(s): I48.91 - Unspecified atrial fibrillation Status: Acute Assessment and Plan: History of atrial fibrillation, on Eliquis at home -on heparin infusion (8) COPD (chronic obstructive pulmonary disease): Qualifiers: COPD type: unspecified COPD Qualified Code(s): J44.9 - Chronic obstructive pulmonary disease, unspecified Code(s): J44.9 - Chronic obstructive pulmonary disease, unspecified Status: Acute Assessment and Plan: Continue bronchodilators (9) Coronary artery disease: Code(s): I25.10 - Atherosclerotic heart disease of [place] coronary artery without angina pectoris Status: Acute Assessment and Plan: History of coronary artery disease, follows with Dr. Gonzalez -cardiology following the pt (10) Diabetes: Code(s): E11.9 - Type 2 diabetes mellitus without complications Status: Acute Assessment and Plan: Sliding scale insulin Accu-Chek (11) Essential hypertension: Code(s): I10 - Essential (primary) hypertension Status: Acute Assessment and Plan: Patient hypertensive, continue p.r.n. hydralazine -continue amlodipine, metoprolol and lisinopril (12) Non-small cell lung cancer: Qualifiers: Laterality: unspecified laterality Qualified Code(s): C34.90 - Malignant neoplasm of unspecified part of unspecified bronchus or lung Code(s): C34.90 - Malignant neoplasm of unspecified part of unspecified bronchus or lung Status: Acute Assessment and Plan: History of non-small cell lung cancer on the left side, with chronic left lung collapse due to radiation -follows pulmonology at [facility] Plan DVT prophylaxis: On heparin infusion Stress ulcer prophylaxis: Protonix Nutrition: NPO for now Code Status: Full code Critical Care Time Spent: 33 minutes Updated the patient and his spouse about patient's condition, plan of care. I answered all the questions. They are aware that patient be going for an MRCP, GI is following the patient Due to a high probability of clinically significant, life threatening deterioration, the patient required my highest level of preparedness to intervene emergently and I personally spent this critical care time directly and personally managing the patient. This critical care time included obtaining a history; examining the patient; pulse oximetry; ordering and review of studies; arranging urgent treatment with development of a management plan; evaluation of patient's response to treatment; frequent reassessment; and discussions with other providers. It was exclusive of separately billable procedures and treating other patients and teaching time. Please see Assessment and Plan section and the rest of the note for further information on patient assessment and treatment This dictation may have been done utilizing a voice recognition system. Attempts have been made to correct errors. However, there may be uncorrected grammatical, spelling, and recognitions errors present. Subjective Date/time seen: 09/08/25 11:22 Interval history: Reason for consult: Abdominal pain, pancreatitis/cholangitis, delayed STEMI 09/08/2025: Patient seen and examined the ICU is awake, alert, oriented. On 2 L nasal cannula with adequate O2 sats. Hemodynamically stable, remains on heparin infusion. Continues to complain of abdominal pain but denies any nausea, vomit ing or diarrhea. Urine output has been adequate, patient is afebrile. Lipase levels trending down, bilirubin and LFTs also improving gradually Review of Systems Review of Systems: All systems reviewed & are unremarkable except as noted in HPI and below Exam Narrative: General: Pleasant gentleman, in no acute distress HEENT:? Pupils equal and reactive, sclera icteric, moist oral mucosa Neck:? Supple Respiratory:? Significantly decreased breath sounds on the left, right side is clear to auscultation, decreased at bases, no wheeze Cardiac:? S1-S2 normal, regular rate and rhythm Abdomen:? Soft, nondistended, tenderness in the epigastrium and periumbilical area, hypoactive bowel sounds Extremities:? No edema, palpable pedal pulses, right radial catheterization site with no ecchymosis or hematoma. Palpable radial pulse on the right Neuro:? Patient is awake, alert, oriented x3, nonfocal Skin:? No skin lesions noted Psych:? Normal mentation and affect Objective Data Vital Signs Vital Signs: Vital Signs - 24 hr 09/07/25 12:00 09/07/25 12:00 09/07/25 12:00 Temperature Pulse Rate 62 62 62 Respiratory Rate 20 20 Blood Pressure 136/79 Pulse Oximetry 90 90 Oxygen Delivery Room Air Oxygen Flow Rate 09/07/25 13:00 09/07/25 14:00 09/07/25 14:00 Temperature Pulse Rate 70 65 65 Respiratory Rate 20 21 H Blood Pressure 141/84 H 156/77 H Pulse Oximetry 93 89 L Oxygen Delivery Oxygen Flow Rate 09/07/25 14:16 09/07/25 14:25 09/07/25 15:00 Temperature 97.8 F Pulse Rate 64 70 80 Respiratory Rate 21 H 20 22 H Blood Pressure 162/88 H Pulse Oximetry 92 Oxygen Delivery Oxygen Flow Rate 09/07/25 16:00 09/07/25 16:00 09/07/25 16:00 Temperature 97.6 F Pulse Rate 73 73 73 Respiratory Rate 16 16 Blood Pressure 130/80 Pulse Oximetry 92 92 Oxygen Delivery Room Air Oxygen Flow Rate 09/07/25 17:00 09/07/25 18:00 09/07/25 18:00 Temperature 97.9 F Pulse Rate 77 78 78 Respiratory Rate 19 22 H Blood Pressure 154/85 H 146/86 H Pulse Oximetry 96 98 Oxygen Delivery Oxygen Flow Rate 09/07/25 19:00 09/07/25 19:50 09/07/25 20:00 Temperature 98.7 F Pulse Rate 80 80 83 Respiratory Rate 24 H 24 H 22 H Blood Pressure 133/75 134/71 Pulse Oximetry 96 96 96 Oxygen Delivery Room Air Oxygen Flow Rate 09/07/25 20:00 09/07/25 20:03 09/07/25 20:05 Temperature Pulse Rate 83 76 78 Respiratory Rate 16 Blood Pressure Pulse Oximetry 96 Oxygen Delivery Nasal Cannula Oxygen Flow Rate 2 09/07/25 20:05 09/07/25 20:12 09/07/25 21:00 Temperature Pulse Rate 78 77 75 Respiratory Rate 16 16 19 Blood Pressure 129/78 Pulse Oximetry 96 Oxygen Delivery Oxygen Flow Rate 09/07/25 22:00 09/07/25 22:00 09/07/25 23:00 Temperature Pulse Rate 76 76 66 Respiratory Rate 24 H 20 Blood Pressure 144/84 H 139/84 Pulse Oximetry 96 97 Oxygen Delivery Oxygen Flow Rate 09/08/25 00:00 09/08/25 00:00 09/08/25 00:15 Temperature 98.4 F Pulse Rate 74 77 74 Respiratory Rate 18 18 Blood Pressure 147/86 H Pulse Oximetry 95 95 Oxygen Delivery Nasal Cannula Oxygen Flow Rate 2 09/08/25 01:00 09/08/25 01:44 09/08/25 02:00 Temperature Pulse Rate 65 72 69 Respiratory Rate 18 16 Blood Pressure 120/72 Pulse Oximetry 95 Oxygen Delivery Oxygen Flow Rate 09/08/25 02:00 09/08/25 02:00 09/08/25 03:00 Temperature Pulse Rate 65 70 67 Respiratory Rate 20 19 19 Blood Pressure 138/86 122/72 Pulse Oximetry 90 90 Oxygen Delivery Oxygen Flow Rate 09/08/25 03:51 09/08/25 04:00 09/08/25 04:00 Temperature 97.6 F Pulse Rate 77 72 77 Respiratory Rate 22 H 22 H Blood Pressure 137/78 Pulse Oximetry 97 97 Oxygen Delivery Nasal Cannula Oxygen Flow Rate 2 09/08/25 05:00 09/08/25 06:00 09/08/25 06:00 Temperature Pulse Rate 74 76 76 Respiratory Rate 23 H 18 Blood Pressure 147/87 H 146/98 H Pulse Oximetry 98 96 Oxygen Delivery Oxygen Flow Rate 09/08/25 07:00 09/08/25 08:00 09/08/25 08:00 Temperature Pulse Rate 75 87 Respiratory Rate 24 H Blood Pressure 167/92 H Pulse Oximetry 97 97 Oxygen Delivery Nasal Cannula Oxygen Flow Rate 2 09/08/25 08:00 09/08/25 08:00 09/08/25 08:00 Temperature 97.7 F Pulse Rate 82 82 84 Respiratory Rate 17 16 24 H Blood Pressure 156/79 H Pulse Oximetry 96 96 Oxygen Delivery Nasal Cannula Oxygen Flow Rate 2 09/08/25 08:06 09/08/25 09:00 09/08/25 10:00 Temperature 98.0 F 98.2 F Pulse Rate 84 82 82 Respiratory Rate 22 H 13 Blood Pressure 149/89 H 150/85 H Pulse Oximetry 97 98 Oxygen Delivery Oxygen Flow Rate 09/08/25 10:00 Temperature Pulse Rate 82 Respiratory Rate Blood Pressure Pulse Oximetry Oxygen Delivery Oxygen Flow Rate Intake/Output Intake/Output: Intake & Output 09/05/25 09/06/25 09/07/25 09/08/25 23:59 23:59 23:59 23:59 Intake Total 1271.5 1987.8 Output Total 1775 775 Balance -503.5 1212.8 Meds/Results Medications: Active Medications Generic Name Dose Route Start Last Admin Trade Name Freq PRN Reason Stop Dose Admin Albuterol/Ipratropium 3 ml 09/07/25 14:00 09/08/25 07:56 Ipratropium 0.5 Mg/Albuterol Sulfate 2.5 Mg (Base) Ampul.Neb 3 Ml INHALATION 3 ml Q6HRT FRANCIS Administration Amlodipine Besylate 10 mg 09/07/25 09:00 09/08/25 08:06 Amlodipine Besylate 10 Mg Tablet PO 10 mg DAILY FRANCIS Administration Aspirin 81 mg 09/07/25 09:00 09/08/25 08:06 Aspirin 81 Mg Enteric Tablet PO 81 mg QAM FRANCIS Administration Clopidogrel Bisulfate 75 mg 09/07/25 09:00 09/08/25 08:06 Clopidogrel Bisulfate 75 Mg Tablet PO 75 mg QAM FRANCIS Administration Dextrose 12.5 gm 09/07/25 07:51 Dextrose 50% 25 Gm/50 Ml Syringe IV PUSH PRN PRN Hypoglycemia Protocol Glucagon 1 mg 09/07/25 07:51 Glucagon For Inj 1 Mg Vial IM PRN PRN Hypoglycemia Protocol Glucose 15 gm 09/07/25 07:51 Glucose Oral Gel 15 Gm Of Glucse In 37.5 Gm Tube PO PRN PRN Hypoglycemia Protocol Heparin Sodium (Porcine) 7,000 units 09/07/25 10:15 Heparin Sodium 5,000 Units/Ml Vial IV PUSH PRN PRN aPTT less than 55 seconds Heparin Sodium (Porcine) 3,500 units 09/07/25 10:15 09/08/25 05:01 Heparin Sodium 5,000 Units/Ml Vial IV PUSH 3,500 units PRN PRN Administration aPTT 55 - 70 seconds Hydralazine HCl 10 mg 09/07/25 07:47 09/07/25 09:22 Hydralazine Hcl 20 Mg/Ml Vial IV PUSH 10 mg Q4H PRN Administration Blood Pressure - High Hydromorphone HCl 0.5 mg 09/08/25 10:30 Hydromorphone Hcl Inj (*Crx) 1 Mg/Ml Syr IV PUSH Q3H PRN Pain Rated 7-10 Lactated Ringer's 1,000 mls @ 125 mls/hr 09/07/25 09:15 09/08/25 08:03 Lr - Lactated Ringers Iv IV CONT 125 mls/hr .Q8H FRANCIS Administration Dextrose 1,000 mls @ 100 mls/hr 09/07/25 07:51 Dextrose 5% 1,000 Ml IVPB PRN PRN Hypoglycemia Protocol Heparin Sodium/Dextrose 25,000 units in 250 mls @ 17 mls/hr 09/07/25 10:10 09/08/25 05:00 Heparin Sodium/D5w 100 Units/Ml IV CONT 1,700 units/hr .[id number] FRANCIS 17 mls/hr Protocol Titration 1,700 UNITS/HR Piperacillin Sod/Tazobactam 50 mls @ 100 mls/hr 09/07/25 18:00 09/08/25 05:08 Sod 3.375 gm/ Sodium Chloride IVPB 100 mls/hr Q6H FRANCIS Administration Insulin Aspart 3 - 6 units 09/07/25 12:00 09/08/25 05:01 Insulin Aspart (*Bkc) 100 Units/Ml SUB-Q Not Given Q6HR FRANCIS Protocol Lisinopril 40 mg 09/07/25 09:00 09/08/25 08:06 Lisinopril 20 Mg Tablet PO 40 mg DAILY FRANCIS Administration Metoprolol Tartrate 50 mg 09/07/25 09:00 09/08/25 08:06 Metoprolol Tartrate 50 Mg Tab PO 50 mg Q12HR FRANCIS Administration Pantoprazole Sodium 40 mg 09/08/25 09:00 09/08/25 08:05 Pantoprazole Sodium Iv 40 Mg Vial IV PUSH 40 mg QAM FRANCIS Administration Radiology Results: ITS Impressions Chest/Abdomen/Pelvis CTA 09/07/25 06:24 IMPRESSION: 1. Complete collapse of left lung. 2. Small left pleural effusion with pleural thickening. 3. Acute interstitial pancreatitis. 4. Severe stenosis of celiac axis. 5. Stent in left common iliac artery with moderate intrastent stenosis. Abdomen Ultrasound 09/07/25 10:33 IMPRESSION: 1. Hepatomegaly, with steatosis. 2. Gallstones. Chest X-Ray 09/08/25 07:53 IMPRESSION: 1. No gross interval change from yesterday. Complete opacification of the left hemithorax. Labs Labs: Laboratory Results - last 24 hr 09/07/25 09/07/25 09/07/25 11:18 13:00 16:45 WBC 21.5 H RBC 5.36 Hgb 15.9 Hct 49.3 MCV 92.0 MCH 29.7 MCHC 32.3 RDW 14.3 Plt Count 287 MPV 9.5 Immature Gran % (Auto) 1.2 H Neut % (Auto) 91.6 H Lymph % (Auto) 4.0 L Gonzales % (Auto) 3.0 Eos % (Auto) 0.1 Baso % (Auto) 0.1 L Lymph # (Auto) 0.86 L Gonzales # (Auto) 0.7 H Eos # (Auto) 0.0 Baso # (Auto) 0.0 Abs Immat Gran (auto) 0.26 H Absolute Neuts (auto) 19.7 H Absolute Nucleated RBC 0.000 Band Neutrophils % Nucleated RBC % 0.0 Platelet Estimate Ovalocytes [place] Cells Schistocytes PT 15.9 H INR 1.3 APTT 28.6 Sodium 135 L Potassium 4.4 Chloride 100 Carbon Dioxide 29 Anion Gap 6 BUN 25 H Creatinine 1.17 Estim Creat Clear Calc 63 Estimated GFR > 60 Glucose 154 H POC Capillary Glucose 150 H Lactic Acid Calcium 9.2 Phosphorus 4.0 Magnesium 1.4 L Total Bilirubin 5.3 H AST 670 H ALT 526 H Alkaline Phosphatase 210 H Troponin I 14.900 H* C-Reactive Protein Total Protein 6.3 Albumin 3.4 L Lipase 4741 H 09/07/25 09/07/25 09/08/25 18:23 23:55 00:00 WBC 23.0 H RBC 5.15 Hgb 15.3 Hct 47.7 MCV 92.6 MCH 29.7 MCHC 32.1 RDW 14.4 Plt Count 211 MPV 9.4 Immature Gran % (Auto) Neut % (Auto) Lymph % (Auto) [place] % (Auto) Eos % (Auto) Baso % (Auto) Lymph # (Auto) Gonzales # (Auto) Eos # (Auto) Baso # (Auto) Abs Immat Gran (auto) Absolute Neuts (auto) Absolute Nucleated RBC Band Neutrophils % Nucleated RBC % Platelet Estimate Ovalocytes [place] Cells Schistocytes PT INR APTT 76.4 H 75.1 H Sodium 133 L Potassium 4.4 Chloride 99 Carbon Dioxide 28 Anion Gap 6 BUN 20 Creatinine 1.13 Estim Creat Clear Calc 65 Estimated GFR > 60 Glucose 141 H POC Capillary Glucose Lactic Acid Calcium 9.1 Phosphorus Magnesium Total Bilirubin AST ALT Alkaline Phosphatase Troponin I C-Reactive Protein 18.2 H Total Protein Albumin Lipase 09/08/25 09/08/25 09/08/25 00:06 04:13 07:46 WBC 24.4 H RBC 4.88 Hgb 14.7 Hct 45.0 MCV 92.2 MCH 30.1 MCHC 32.7 RDW 14.4 Plt Count 204 MPV 9.5 Immature Gran % (Auto) 0.9 H Neut % (Auto) 91.4 H Lymph % (Auto) 3.9 L [place] % (Auto) 3.5 Eos % (Auto) 0.1 Baso % (Auto) 0.2 Lymph # (Auto) 0.94 [place] # (Auto) 0.9 H Eos # (Auto) 0.0 Baso # (Auto) 0.0 Abs Immat Gran (auto) 0.21 H Absolute Neuts (auto) 22.3 H Absolute Nucleated RBC 0.000 Band Neutrophils % Not Reportable Nucleated RBC % 0.0 Platelet Estimate Adequate Ovalocytes Occasional [place] Cells 1+ Schistocytes None seen PT INR APTT 67.9 H Sodium 133 L Potassium 4.4 Chloride 102 Carbon Dioxide 25 Anion Gap 6 BUN 21 H Creatinine 1.15 Estim Creat Clear Calc 64 Estimated GFR > 60 Glucose 135 H POC Capillary Glucose 149 H 140 H Lactic Acid 0.8 Calcium 9.1 Phosphorus 3.9 Magnesium 1.8 Total Bilirubin 3.5 H AST 235 H ALT 371 H Alkaline Phosphatase 185 H Troponin I C-Reactive Protein Total Protein 6.7 Albumin 3.5 Lipase 1484 H Quality VTE Prophylaxis VTE prophylaxis: pharmacologic ordered
[2025-09-08 11:24] LABS: Partial Thromboplastin Time 100.9 Seconds (22.3-36.8)
--- NOTE | 2025-09-08 14:37 | PC.NURSE ---
This patient, Scott Zee, was transferred to [facility] on 09/08/25 at 1400. Personal belongings sent with patient. Report given to Xiomara Hooks RN. Appropriate documentation sent with patient.
[2025-09-08] MEDS: LACTATED RINGERS 1,000 ML 100 ML IV CONT (16:29)
--- NOTE | 2025-09-08 18:07 | PCRCNOTE ---
Window of time for administration has passed. See next scheduled administration.
[2025-09-08] MEDS: HEPARIN SOD/D5W 100 UNITS/ML 25,000 UNITS/250 ML BAG 17 UNITS IV CONT (18:08)
[2025-09-08 18:32] LABS: Partial Thromboplastin Time 84.2 Seconds (22.3-36.8)
--- NOTE | 2025-09-08 21:14 | P.PNGI_ITS ---
Progress Note: A&P Assessment and Plan (1) Pancreatitis: Qualifiers: Chronicity: acute Pancreatitis type: biliary Acute pancreatitis complication: no infection or necrosis Qualified Code(s): K85.10 - Biliary acute pancreatitis without necrosis or infection Code(s): K85.90 - Acute pancreatitis without necrosis or infection, unspecified Status: Acute Assessment and Plan: - The patient presents with interstitial pancreatitis characterized by pe ripancreatic fluid and edema without evidence of necrosis, though persistent SIRS classifies the episode as moderately severe acute pancreatitis. There is no organ failure (renal, respiratory - despite having only one functioning lung - or circulatory failure . - We will initiate early feeding with clear liquids tonight to assess tolerance as this is recomended in patients with acute pancreatitis. - Antibiotic coverage was started for potential early cholangitis given hyperbilirubinemia, elevated transaminases, and significant leukocytosis, which may be secondary to recent stone passage. While transaminases and bilirubin are currently trending downward, an MRCP is scheduled for tomorrow to evaluate for persistent choledocholithiasis. -- Procalcitonin has been ordered to guide potential antibiotic de-escalation, and biliary intervention is not currently anticipated as there is no evidence of active sepsis or ongoing cholangitis. - Fluid administration will be decreased since he has already received enough volume resuscitation to avoid pancreatic necrosis at this point. Cardiology continues to manage concurrent issues, and we will continue to follow him closely. Subjective Date/time seen: 09/08/25 21:14 Interval history: The patient is doing clinically better, although still having lower abdominal pain. However, his vital signs remained stable, had urine output is adequate and hematocrit has hemo dilute is appropriately after hydration. Has Exam Const: General: comfortable and no acute distress Resp: Effort & Inspection: normal respiratory effort Auscultation: clear to auscultation bilaterally, no crackles and no rales Cardio: Rate: regular rate Rhythm: regular rhythm GI: Auscultation: normal bowel sounds Objective Data Vital Signs Vital Signs: Vital Signs - 24 hr 09/07/25 22:00 09/07/25 22:00 09/07/25 23:00 Temperature Pulse Rate 76 76 66 Respiratory Rate 24 H 20 Blood Pressure 144/84 H 139/84 Pulse Oximetry 96 97 Oxygen Delivery Oxygen Flow Rate Fraction of Inspired Oxygen 09/08/25 00:00 09/08/25 00:00 09/08/25 00:15 Temperature 98.4 F Pulse Rate 74 77 74 Respiratory Rate 18 18 Blood Pressure 147/86 H Pulse Oximetry 95 95 Oxygen Delivery Nasal Cannula Oxygen Flow Rate 2 Fraction of Inspired Oxygen 09/08/25 01:00 09/08/25 01:44 09/08/25 02:00 Temperature Pulse Rate 65 72 69 Respiratory Rate 18 16 Blood Pressure 120/72 Pulse Oximetry 95 Oxygen Delivery Oxygen Flow Rate Fraction of Inspired Oxygen 09/08/25 02:00 09/08/25 02:00 09/08/25 03:00 Temperature Pulse Rate 65 70 67 Respiratory Rate 20 19 19 Blood Pressure 138/86 122/72 Pulse Oximetry 90 90 Oxygen Delivery Oxygen Flow Rate Fraction of Inspired Oxygen 09/08/25 03:51 09/08/25 04:00 09/08/25 04:00 Temperature 97.6 F Pulse Rate 77 72 77 Respiratory Rate 22 H 22 H Blood Pressure 137/78 Pulse Oximetry 97 97 Oxygen Delivery Nasal Cannula Oxygen Flow Rate 2 Fraction of Inspired Oxygen 09/08/25 05:00 09/08/25 06:00 09/08/25 06:00 Temperature Pulse Rate 74 76 76 Respiratory Rate 23 H 18 Blood Pressure 147/87 H 146/98 H Pulse Oximetry 98 96 Oxygen Delivery Oxygen Flow Rate Fraction of Inspired Oxygen 09/08/25 07:00 09/08/25 08:00 09/08/25 08:00 Temperature Pulse Rate 75 87 Respiratory Rate 24 H Blood Pressure 167/92 H Pulse Oximetry 97 97 Oxygen Delivery Nasal Cannula Oxygen Flow Rate 1 Fraction of Inspired Oxygen 09/08/25 08:00 09/08/25 08:00 09/08/25 08:00 Temperature 97.7 F Pulse Rate 82 82 84 Respiratory Rate 17 16 24 H Blood Pressure 156/79 H Pulse Oximetry 96 96 Oxygen Delivery Nasal Cannula Oxygen Flow Rate 2 Fraction of Inspired Oxygen 09/08/25 08:06 09/08/25 09:00 09/08/25 10:00 Temperature 98.0 F 98.2 F Pulse Rate 84 82 82 Respiratory Rate 22 H 13 Blood Pressure 149/89 H 150/85 H Pulse Oximetry 97 98 Oxygen Delivery Oxygen Flow Rate Fraction of Inspired Oxygen 09/08/25 10:00 09/08/25 11:00 09/08/25 12:00 Temperature Pulse Rate 82 74 78 Respiratory Rate 20 Blood Pressure 161/97 H Pulse Oximetry 20 L Oxygen Delivery Oxygen Flow Rate Fraction of Inspired Oxygen 09/08/25 12:00 09/08/25 12:00 09/08/25 13:00 Temperature 97.5 F L Pulse Rate 77 78 Respiratory Rate 20 19 Blood Pressure 147/87 H 155/78 H Pulse Oximetry 96 95 97 Oxygen Delivery Room Air Oxygen Flow Rate Fraction of Inspired Oxygen 09/08/25 14:00 09/08/25 16:00 09/08/25 16:00 Temperature 98.5 F Pulse Rate 70 70 Respiratory Rate 18 Blood Pressure 127/60 Pulse Oximetry 90 Oxygen Delivery Room Air Oxygen Flow Rate Fraction of Inspired Oxygen 09/08/25 16:00 09/08/25 18:00 09/08/25 20:00 Temperature 98.0 F Pulse Rate 94 95 88 Respiratory Rate 18 Blood Pressure 136/60 Pulse Oximetry 91 Oxygen Delivery Oxygen Flow Rate Fraction of Inspired Oxygen 09/08/25 20:21 09/08/25 20:36 09/08/25 20:36 Temperature Pulse Rate 81 89 89 Respiratory Rate 16 16 Blood Pressure Pulse Oximetry 92 Oxygen Delivery Room Air Oxygen Flow Rate Fraction of Inspired Oxygen 21 Intake/Output Intake/Output: Intake & Output 09/05/25 09/06/25 09/07/25 09/08/25 23:59 23:59 23:59 23:59 Intake Total 1271.5 4388.2 Output Total 1775 1675 Balance -503.5 2713.2 Meds/Results Medications: Active Medications Generic Name Dose Route Start Last Admin Trade Name Freq PRN Reason Stop Dose Admin Albuterol/Ipratropium 3 ml 09/07/25 14:00 09/08/25 20:36 Ipratropium 0.5 Mg/Albuterol Sulfate 2.5 Mg (Base) Ampul.Neb 3 Ml INHALATION 3 ml Q6HRT FRANCIS Administration Amlodipine Besylate 10 mg 09/07/25 09:00 09/08/25 08:06 Amlodipine Besylate 10 Mg Tablet PO 10 mg DAILY FRANCIS Administration Aspirin 81 mg 09/07/25 09:00 09/08/25 08:06 Aspirin 81 Mg Enteric Tablet PO 81 mg QAM FR[facility]IS Administration Clopidogrel Bisulfate 75 mg 09/07/25 09:00 09/08/25 08:06 Clopidogrel Bisulfate 75 Mg Tablet PO 75 mg QAM FR[facility]IS Administration Dextrose 12.5 gm 09/07/25 07:51 Dextrose 50% 25 Gm/50 Ml Syringe IV PUSH PRN PRN Hypoglycemia Protocol Glucagon 1 mg 09/07/25 07:51 Glucagon For Inj 1 Mg Vial IM PRN PRN Hypoglycemia Protocol Glucose 15 gm 09/07/25 07:51 Glucose Oral Gel 15 Gm Of Glucse In 37.5 Gm Tube PO PRN PRN Hypoglycemia Protocol Heparin Sodium (Porcine) 7,000 units 09/07/25 10:15 Heparin Sodium 5,000 Units/Ml Vial IV PUSH PRN PRN aPTT less than 55 seconds Heparin Sodium (Porcine) 3,500 units 09/07/25 10:15 09/08/25 05:01 Heparin Sodium 5,000 Units/Ml Vial IV PUSH 3,500 units PRN PRN Administration aPTT 55 - 70 seconds Hydralazine HCl 10 mg 09/07/25 07:47 09/08/25 11:51 Hydralazine Hcl 20 Mg/Ml Vial IV PUSH 10 mg Q4H PRN Administration Blood Pressure - High Hydromorphone HCl 0.5 mg 09/08/25 10:30 09/08/25 18:08 Hydromorphone Hcl Inj (*Crx) 1 Mg/Ml Syr IV PUSH 0.5 mg Q3H PRN Administration Pain Rated 7-10 Lactated Ringer's 1,000 mls @ 100 mls/hr 09/07/25 09:15 09/08/25 16:29 Lr - Lactated Ringers Iv IV CONT 100 mls/hr .Q10H [facility]ANCIS Administration Dextrose 1,000 mls @ 100 mls/hr 09/07/25 07:51 Dextrose 5% 1,000 Ml IVPB PRN PRN Hypoglycemia Protocol Heparin Sodium/Dextrose 25,000 units in 250 mls @ 17 mls/hr 09/07/25 10:10 09/08/25 18:33 Heparin Sodium/D5w 100 Units/Ml IV CONT 1,700 units/hr .[id number] FRANCIS 17 mls/hr Protocol Titration 1,700 UNITS/HR Piperacillin Sod/Tazobactam 50 mls @ 100 mls/hr 09/07/25 18:00 09/08/25 18:58 Sod 3.375 gm/ Sodium Chloride IVPB Infused Q6H [facility]IS Infusion Insulin Aspart 3 - 6 units 09/07/25 12:00 09/08/25 16:30 Insulin Aspart (*Bkc) 100 Units/Ml SUB-Q Not Given Q6HR [facility] Protocol Lisinopril 40 mg 09/07/25 09:00 09/08/25 08:06 Lisinopril 20 Mg Tablet PO 40 mg DAILY FRANCIS Administration Metoprolol Tartrate 50 mg 09/07/25 09:00 09/08/25 20:21 Metoprolol Tartrate 50 Mg Tab PO 50 mg Q12HR [facility] Administration Pantoprazole Sodium 40 mg 09/09/25 09:00 Pantoprazole 40 Mg Tablet PO QAM [facility] Radiology Results: ITS Impressions Chest/Abdomen/Pelvis CTA 09/07/25 06:24 IMPRESSION: 1. Complete collapse of left lung. 2. Small left pleural effusion with pleural thickening. 3. Acute interstitial pancreatitis. 4. Severe stenosis of celiac axis. 5. Stent in left common iliac artery with moderate intrastent stenosis. Abdomen Ultrasound 09/07/25 10:33 IMPRESSION: 1. Hepatomegaly, with steatosis. 2. Gallstones. Chest X-Ray 09/08/25 07:53 IMPRESSION: 1. No gross interval change from yesterday. Complete opacification of the left hemithorax. Labs Labs: Laboratory Results - last 24 hr 09/07/25 09/08/25 09/08/25 23:55 00:00 00:06 WBC 23.0 H RBC 5.15 Hgb 15.3 Hct 47.7 MCV 92.6 MCH 29.7 MCHC 32.1 RDW 14.4 Plt Count 211 MPV 9.4 Immature Gran % (Auto) Neut % (Auto) Lymph % (Auto) Story % (Auto) Eos % (Auto) Baso % (Auto) Lymph # (Auto) Story # (Auto) Eos # (Auto) Baso # (Auto) Abs Immat Gran (auto) Absolute Neuts (auto) Absolute Nucleated RBC Band Neutrophils % Nucleated RBC % Platelet Estimate Ovalocytes Trudy Cells Schistocytes APTT 75.1 H Sodium 133 L Potassium 4.4 Chloride 99 Carbon Dioxide 28 Anion Gap 6 BUN 20 Creatinine 1.13 Estim Creat Clear Calc 65 Estimated GFR > 60 Glucose 141 H POC Capillary Glucose 149 H Lactic Acid Calcium 9.1 Phosphorus Magnesium Total Bilirubin AST ALT Alkaline Phosphatase C-Reactive Protein 18.2 H Total Protein Albumin Lipase 09/08/25 09/08/25 09/08/25 04:13 07:46 11:00 WBC 24.4 H RBC 4.88 Hgb 14.7 Hct 45.0 MCV 92.2 MCH 30.1 MCHC 32.7 RDW 14.4 Plt Count 204 MPV 9.5 Immature Gran % (Auto) 0.9 H Neut % (Auto) 91.4 H Lymph % (Auto) 3.9 L Story % (Auto) 3.5 Eos % (Auto) 0.1 Baso % (Auto) 0.2 Lymph # (Auto) 0.94 Story # (Auto) 0.9 H Eos # (Auto) 0.0 Baso # (Auto) 0.0 Abs Immat Gran (auto) 0.21 H Absolute Neuts (auto) 22.3 H Absolute Nucleated RBC 0.000 Band Neutrophils % Not Reportable Nucleated RBC % 0.0 Platelet Estimate Adequate Ovalocytes Occasional Trudy Cells 1+ Schistocytes None seen APTT 67.9 H 100.9 H Sodium 133 L Potassium 4.4 Chloride 102 Carbon Dioxide 25 Anion Gap 6 BUN 21 H Creatinine 1.15 Estim Creat Clear Calc 64 Estimated GFR > 60 Glucose 135 H POC Capillary Glucose 140 H Lactic Acid 0.8 Calcium 9.1 Phosphorus 3.9 Magnesium 1.8 Total Bilirubin 3.5 H AST 235 H ALT 371 H Alkaline Phosphatase 185 H C-Reactive Protein Total Protein 6.7 Albumin 3.5 Lipase 1484 H 09/08/25 09/08/25 09/08/25 11:38 15:52 18:14 WBC RBC Hgb Hct MCV MCH MCHC RDW Plt Count MPV Immature Gran % (Auto) Neut % (Auto) Lymph % (Auto) Story % (Auto) Eos % (Auto) Baso % (Auto) Lymph # (Auto) Story # (Auto) Eos # (Auto) Baso # (Auto) Abs Immat Gran (auto) Absolute Neuts (auto) Absolute Nucleated RBC Band Neutrophils % Nucleated RBC % Platelet Estimate Ovalocytes Trudy Cells Schistocytes APTT 84.2 H Sodium Potassium Chloride Carbon Dioxide Anion Gap BUN Creatinine Estim Creat Clear Calc Estimated GFR Glucose POC Capillary Glucose 132 H 128 H Lactic Acid Calcium Phosphorus Magnesium Total Bilirubin AST ALT Alkaline Phosphatase C-Reactive Protein Total Protein Albumin Lipase 09/08/25 20:14 WBC RBC Hgb Hct MCV MCH MCHC RDW Plt Count MPV Immature Gran % (Auto) Neut % (Auto) Lymph % (Auto) Story % (Auto) Eos % (Auto) Baso % (Auto) Lymph # (Auto) Story # (Auto) Eos # (Auto) Baso # (Auto) Abs Immat Gran (auto) Absolute Neuts (auto) Absolute Nucleated RBC Band Neutrophils % Nucleated RBC % Platelet Estimate Ovalocytes [place] Cells Schistocytes APTT Sodium Potassium Chloride Carbon Dioxide Anion Gap BUN Creatinine Estim Creat Clear Calc Estimated GFR Glucose POC Capillary Glucose 194 H Lactic Acid Calcium Phosphorus Magnesium Total Bilirubin AST ALT Alkaline Phosphatase C-Reactive Protein Total Protein Albumin Lipase
[2025-09-08 21:38] LABS: Hematocrit 44.9 % (42.0-52.0); Hemoglobin 14.2 g/dL (14.0-18.0); Mean Corpuscular HGB Conc 31.6 g/dl (32-36); Mean Corpuscular Hemoglobin 29.5 pg (26-34); Mean Corpuscular Volume 93.2 fl (80-100); Platelet Count Result 189 k/mm3 (150-375); Red Blood Count 4.82 M/mm3 (4.6-6.20); White Blood Count 22.5 K/mm3 (4.5-10.0)
[2025-09-08 22:33] LABS: Anion Gap 5 mmol/L (4-12); Blood Urea Nitrogen 17 mg/dL (9-20); CRP 35.0 mg/dL (<1.0); Calcium 9.2 mg/dL (8.4-10.2); Carbon Dioxide 29 mmol/L (22-30); Chloride 98 mmol/L (98-107); Estimated CRCL calculation 61 ml/min; Estimated Glomerular Filt Rate > 60; Glucose 161 mg/dL (65-110); Potassium 4.7 mmol/L (3.4-5.0); Sodium 132 mmol/L (137-145)
[2025-09-09] VITALS (25 sets, daily range): BP systolic 123–157; BP diastolic 54–74; PULSE 74–102; RESP 14–20; TEMP 36.4–37.3; O2SAT 83–97
[2025-09-09] MEDS: PIPERACILLIN/TAZOBACTAM SOD 3.375 GM in SODIUM CHLORIDE 0.9% IV 50 ML 100 ML IVPB ×5 (00:38→23:25)
[2025-09-09] MEDS: HYDROmorphone HCL INJ (*CRX) 1 MG/ML SYR 0.5 MG IV PUSH ×7 (01:24→23:26)
[2025-09-09] MEDS: IPRATROPIUM 0.5 MG/ALBUTEROL SULFATE 2.5 MG (BASE) AMPUL.NEB 3 ML INHALATION ×4 (01:46→20:17)
[2025-09-09] MEDS: LACTATED RINGERS 1,000 ML 100 ML IV CONT ×3 (02:10→22:39)
[2025-09-09 06:21] LABS: Partial Thromboplastin Time 76.1 Seconds (22.3-36.8)
[2025-09-09 06:48] LABS: Procalcitonin 1.2 ng/mL
[2025-09-09] MEDS: HEPARIN SOD/D5W 100 UNITS/ML 25,000 UNITS/250 ML BAG 17 UNITS IV CONT ×2 (07:15→22:39)
[2025-09-09] MEDS: PANTOPRAZOLE 40 MG TABLET PO (08:35)
[2025-09-09] MEDS: METOPROLOL TARTRATE 50 MG TAB PO ×2 (08:36→20:31)
[2025-09-09] MEDS: ASPIRIN 81 MG ENTERIC TABLET PO (08:36)
[2025-09-09] MEDS: CLOPIDOGREL BISULFATE 75 MG TABLET PO (08:36)
--- NOTE | 2025-09-09 08:49 | ECG_ITS ---
Test Date: 2025-09-09 09:04:18 Measurements Intervals [place] Rate: 87 P: 6 MI: 157 QRS: -6 QRSD: 110 T: -61 QT: 363 QTc: 438 Interpretive Statements SINUS RHYTHM WITH SINUS ARRHYTHMIA DELAYED PRECORDIAL R/S TRANSITION LEFT VENTRICULAR HYPERTROPHY AND ST-T CHANGE INFERIOR INFARCT, PROBABLY RECENT ABNORMAL ECG Compared to ECG 09/07/2025 06:06:26 No significant changes Electronically Signed On 09-09-2025 11:33:57 NEW ACCOUNTS CLERK by Jt Post D.O.
[2025-09-09 09:35] LABS: Troponin I 3.520 ng/mL (0.000-0.034)
--- NOTE | 2025-09-09 10:30 | PM.PNCARD ---
Progress Note: A&P Assessment and Plan (1) ST elevation myocardial infarction (STEMI) of inferior wall: Code(s): I21.19 - ST elevation (STEMI) myocardial infarction involving other coronary artery of inferior wall Status: Acute (2) Atrial fibrillation: Code(s): I48.91 - Unspecified atrial fibrillation Status: Acute (3) Peripheral vascular disease: Code(s): I73.9 - Peripheral vascular disease, unspecified Status: Acute (4) Coronary artery disease: Code(s): I25.10 - Atherosclerotic heart disease of [place] coronary artery without angina pectoris Status: Acute (5) Chronic systolic heart failure: Code(s): I50.22 - Chronic systolic (congestive) heart failure Status: Acute Plan 65-year-old man with CAD status post PCI, peripheral arterial disease status post [employer] stenting, paroxysmal atrial fibrillation on Eliquis, chronic systolic heart failure, and lung cancer presents with abdominal pain whose ECG was concerning for late presentation STEMI. Patient had troponin peak at 18 (17.5, 18, 14.9, 3.52). EKG showed inferior ST elevation and lateral ST depressions. Cardiac cath did not show any plaque rupture. There is chronic obstructive CAD. Upon my review of the cath films, there is 50% stenosis of LM ostium and body, and 50-60% stenosis of distal LM, 60-70% stenosis of ostial LAD, 60% stenosis of ostial RPDA. Chronic CAD, prior stent to LAD- with 50% ostial, body and distal LM, 60-70% ostial LAD stenosis NSTEMI- type II MO from supply demand mismatch; no acute plaque rupture on cath -He had chest pain this morning which resolved with morphine. Troponin downtrending at 3.5. Repeat EKG showed SR with inferior ST elevations and lateral ST depressions which are decreased compared with EKG at presentation -Continue medical management with asa, plavix, statin, BB -SL nitroglycerin 0.4mg Q5 min x 3 prn for chest pain -In lieu of ongoing chest pain with any stress and LM disease, recommend evaluation of his LM disease and revascularization if significant. This can be done after patient recovers from his acute illness Paroxysmal atrial fibrillation -remains in NSR today -resume IV heparin post ERCP and can restart Eliquis when cleared. When Eliquis is resumed, stop asa Chronic systolic heart failure -last left ventricular systolic function evaluated at EF of 40% -continue guideline directed medical therapy with lisinopril 40 mg daily and Metoprolol 50 mg BID -can consider addition of farxiga -CXR today showed complete opacification of left hemothorax -will update pBNP and can use IV diuresis as needed Peripheral arterial disease status post [employer] stenting -continue aspirin 81 mg p.o. daily Hypertension -patient BP elevated most likely secondary to abdominal pain -prn hydralazine is ordered -continue oral meds as able Left lung collapse -noted on CT chest and follow up CXR -history of left lung ca -recommend pulmonary evaluation prior to any anesthesia Acute pancreatitis -with associated leukocytosis, elevated LFTs, lipase and abdominal pain -with cholangitis concern per GI -planned for ERCP Severe Celiac artery stenosis From CV standpoint, he is higher risk for planned anesthesia and will need close monitoring alicia and post procedure of his volume status Subjective Date/time seen: 09/09/25 10:30 Interval history: Date of Service 09/09/25- Patient complained of chest pain this morning which resolved with morphine. He states that he had abdominal pain first which then migrated into his left chest. He describes this as a pressure on the chest. Review of Systems Cardiovascular: Comments: As per HPI Respiratory: Comments: As per HPI Exam Narrative: General: Alert oriented x3, no acute distress Neck: Supple, no JVD Chest: Bilaterally clear to auscultation, no rales or rhonchi Cardiac: S1, S2 +, regular rate, regular rhythm, no murmurs or rubs Extremities: No pedal edema, no skin rash Neurologic: Alert and oriented x3, no focal neurological deficits Objective Data Vital Signs Vital Signs: Vital Signs - 24 hr 09/08/25 11:00 09/08/25 12:00 09/08/25 12:00 Temperature Pulse Rate 74 78 Respiratory Rate 20 Blood Pressure 161/97 H Pulse Oximetry 20 L 96 Oxygen Delivery Room Air Oxygen Flow Rate Fraction of Inspired Oxygen 09/08/25 12:00 09/08/25 13:00 09/08/25 14:00 Temperature 36.4 C L Pulse Rate 77 78 70 Respiratory Rate 20 19 Blood Pressure 147/87 H 155/78 H Pulse Oximetry 95 97 Oxygen Delivery Oxygen Flow Rate Fraction of Inspired Oxygen 09/08/25 16:00 09/08/25 16:00 09/08/25 16:00 Temperature 36.9 C Pulse Rate 70 94 Respiratory Rate 18 Blood Pressure 127/60 Pulse Oximetry 90 Oxygen Delivery Room Air Oxygen Flow Rate Fraction of Inspired Oxygen 09/08/25 18:00 09/08/25 20:00 09/08/25 20:00 Temperature 36.7 C Pulse Rate 95 88 Respiratory Rate 18 Blood Pressure 136/60 Pulse Oximetry 91 Oxygen Delivery Room Air Oxygen Flow Rate Fraction of Inspired Oxygen 09/08/25 20:00 09/08/25 20:21 09/08/25 20:36 Temperature Pulse Rate 87 81 89 Respiratory Rate 16 Blood Pressure Pulse Oximetry 92 Oxygen Delivery Room Air Oxygen Flow Rate Fraction of Inspired Oxygen 21 09/08/25 20:36 09/08/25 22:00 09/08/25 23:10 Temperature 36.9 C Pulse Rate 89 81 77 Respiratory Rate 16 18 Blood Pressure 122/65 Pulse Oximetry 88 L Oxygen Delivery Oxygen Flow Rate Fraction of Inspired Oxygen 09/08/25 23:15 09/09/25 00:00 09/09/25 00:00 Temperature Pulse Rate 81 Respiratory Rate Blood Pressure Pulse Oximetry 94 Oxygen Delivery Room Air Oxygen Flow Rate Fraction of Inspired Oxygen 09/09/25 01:46 09/09/25 01:49 09/09/25 01:56 Temperature Pulse Rate 89 89 93 Respiratory Rate 14 14 Blood Pressure Pulse Oximetry 83 L Oxygen Delivery Nasal Cannula Oxygen Flow Rate 1 Fraction of Inspired Oxygen 09/09/25 01:56 09/09/25 02:00 09/09/25 04:00 Temperature Pulse Rate 93 74 78 Respiratory Rate 14 20 Blood Pressure Pulse Oximetry 91 94 Oxygen Delivery Nasal Cannula Room Air Oxygen Flow Rate 1 Fraction of Inspired Oxygen 09/09/25 04:00 09/09/25 04:00 09/09/25 06:00 Temperature 37.0 C Pulse Rate 82 78 79 Respiratory Rate 20 Blood Pressure 123/61 Pulse Oximetry 94 Oxygen Delivery Oxygen Flow Rate Fraction of Inspired Oxygen 09/09/25 08:00 09/09/25 08:00 09/09/25 08:00 Temperature Pulse Rate 87 87 Respiratory Rate 20 20 Blood Pressure Pulse Oximetry 93 Oxygen Delivery Nasal Cannula Room Air Oxygen Flow Rate 1 Fraction of Inspired Oxygen 09/09/25 08:00 09/09/25 08:08 09/09/25 08:11 Temperature Pulse Rate 83 92 79 Respiratory Rate 20 20 Blood Pressure 157/69 H Pulse Oximetry 97 Oxygen Delivery Oxygen Flow Rate Fraction of Inspired Oxygen 09/09/25 08:36 Temperature Pulse Rate 91 Respiratory Rate Blood Pressure Pulse Oximetry Oxygen Delivery Oxygen Flow Rate Fraction of Inspired Oxygen Intake/Output Intake/Output: Intake & Output 09/06/25 09/07/25 09/08/25 09/09/25 23:59 23:59 23:59 23:59 Intake Total 1271.5 4388.2 1234.2 Output Total 1775 1675 300 Balance -503.5 2713.2 934.2 Meds/Results Medications: Active Medications Generic Name Dose Route Start Last Admin Trade Name Freq PRN Reason Stop Dose Admin Albuterol/Ipratropium 3 ml 09/07/25 14:00 09/09/25 08:00 Ipratropium 0.5 Mg/Albuterol Sulfate 2.5 Mg (Base) Ampul.Neb 3 Ml INHALATION 3 ml Q6HRT FRANCIS Administration Amlodipine Besylate 10 mg 09/07/25 09:00 09/09/25 08:35 Amlodipine Besylate 10 Mg Tablet PO 10 mg DAILY FRANCIS Administration Aspirin 81 mg 09/07/25 09:00 09/09/25 08:36 Aspirin 81 Mg Enteric Tablet PO 81 mg QAM FRANCIS Administration Clopidogrel Bisulfate 75 mg 09/07/25 09:00 09/09/25 08:36 Clopidogrel Bisulfate 75 Mg Tablet PO 75 mg QAM FRANCIS Administration Dextrose 12.5 gm 09/07/25 07:51 Dextrose 50% 25 Gm/50 Ml Syringe IV PUSH PRN PRN Hypoglycemia Protocol Glucagon 1 mg 09/07/25 07:51 Glucagon For Inj 1 Mg Vial IM PRN PRN Hypoglycemia Protocol Glucose 15 gm 09/07/25 07:51 Glucose Oral Gel 15 Gm Of Glucse In 37.5 Gm Tube PO PRN PRN Hypoglycemia Protocol Heparin Sodium (Porcine) 7,000 units 09/07/25 10:15 Heparin Sodium 5,000 Units/Ml Vial IV PUSH PRN PRN aPTT less than 55 seconds Heparin Sodium (Porcine) 3,500 units 09/07/25 10:15 09/08/25 05:01 Heparin Sodium 5,000 Units/Ml Vial IV PUSH 3,500 units PRN PRN Administration aPTT 55 - 70 seconds Hydralazine HCl 10 mg 09/07/25 07:47 09/08/25 11:51 Hydralazine Hcl 20 Mg/Ml Vial IV PUSH 10 mg Q4H PRN Administration Blood Pressure - High Hydromorphone HCl 0.5 mg 09/08/25 10:30 09/09/25 08:35 Hydromorphone Hcl Inj (*Crx) 1 Mg/Ml Syr IV PUSH 0.5 mg Q3H PRN Administration Pain Rated 7-10 Lactated Ringer's 1,000 mls @ 100 mls/hr 09/07/25 09:15 09/09/25 02:10 Lr - Lactated Ringers Iv IV CONT 100 mls/hr .Q10H [facility]ANCIS Administration Dextrose 1,000 mls @ 100 mls/hr 09/07/25 07:51 Dextrose 5% 1,000 Ml IVPB PRN PRN Hypoglycemia Protocol Heparin Sodium/Dextrose 25,000 units in 250 mls @ 17 mls/hr 09/07/25 10:10 09/09/25 07:15 Heparin Sodium/D5w 100 Units/Ml IV CONT 1,700 units/hr .[id number] FRANCIS 17 mls/hr Protocol Administration 1,700 UNITS/HR Piperacillin Sod/Tazobactam 50 mls @ 100 mls/hr 09/07/25 18:00 09/09/25 05:10 Sod 3.375 gm/ Sodium Chloride IVPB 100 mls/hr Q6H [facility] Administration Insulin Aspart 3 - 6 units 09/07/25 12:00 09/09/25 07:00 Insulin Aspart (*Bkc) 100 Units/Ml SUB-Q Not Given Q6HR [facility] Protocol Lisinopril 40 mg 09/07/25 09:00 09/09/25 08:35 Lisinopril 20 Mg Tablet PO 40 mg DAILY FRANCIS Administration Metoprolol Tartrate 50 mg 09/07/25 09:00 09/09/25 08:36 Metoprolol Tartrate 50 Mg Tab PO 50 mg Q12HR [facility] Administration Pantoprazole Sodium 40 mg 09/09/25 09:00 09/09/25 08:35 Pantoprazole 40 Mg Tablet PO 40 mg QAM FRANCIS Administration Radiology Results: ITS Impressions Chest/Abdomen/Pelvis CTA 09/07/25 06:24 IMPRESSION: 1. Complete collapse of left lung. 2. Small left pleural effusion with pleural thickening. 3. Acute interstitial pancreatitis. 4. Severe stenosis of celiac axis. 5. Stent in left common iliac artery with moderate intrastent stenosis. Abdomen Ultrasound 09/07/25 10:33 IMPRESSION: 1. Hepatomegaly, with steatosis. 2. Gallstones. Chest X-Ray 09/08/25 07:53 IMPRESSION: 1. No gross interval change from yesterday. Complete opacification of the left hemithorax. Labs Labs: Laboratory Results - last 24 hr 09/08/25 09/08/25 09/08/25 11:00 11:38 15:52 WBC RBC Hgb Hct MCV MCH MCHC RDW Plt Count MPV APTT 100.9 H Sodium Potassium Chloride Carbon Dioxide Anion Gap BUN Creatinine Estim Creat Clear Calc Estimated GFR Glucose POC Capillary Glucose 132 H 128 H Calcium Troponin I C-Reactive Protein Procalcitonin 09/08/25 09/08/25 09/08/25 18:14 20:14 21:33 WBC 22.5 H RBC 4.82 Hgb 14.2 Hct 44.9 MCV 93.2 MCH 29.5 MCHC 31.6 L RDW 14.3 Plt Count 189 MPV 9.4 APTT 84.2 H Sodium 132 L Potassium 4.7 Chloride 98 Carbon Dioxide 29 Anion Gap 5 BUN 17 Creatinine 1.21 Estim Creat Clear Calc 61 Estimated GFR > 60 Glucose 161 H POC Capillary Glucose 194 H Calcium 9.2 Troponin I C-Reactive Protein 35.0 H Procalcitonin 09/09/25 09/09/25 09/09/25 00:48 05:56 06:58 WBC RBC Hgb Hct MCV MCH MCHC RDW Plt Count MPV APTT 76.1 H Sodium Potassium Chloride Carbon Dioxide Anion Gap BUN Creatinine Estim Creat Clear Calc Estimated GFR Glucose POC Capillary Glucose 162 H 154 H Calcium Troponin I C-Reactive Protein Procalcitonin 1.2 09/09/25 09:00 WBC RBC Hgb Hct MCV MCH MCHC RDW Plt Count MPV APTT Sodium Potassium Chloride Carbon Dioxide Anion Gap BUN Creatinine Estim Creat Clear Calc Estimated GFR Glucose POC Capillary Glucose Calcium Troponin I 3.520 H* C-Reactive Protein Procalcitonin
--- NOTE | 2025-09-09 17:05 | WPDGIPROGNO ---
Progress Note: A&P Assessment and Plan (1) Pancreatitis: Qualifiers: Chronicity: acute Pancreatitis type: biliary Acute pancreatitis complication: no infection or necrosis Qualified Code(s): K85.10 - Biliary acute pancreatitis without necrosis or infection Code(s): K85.90 - Acute pancreatitis without necrosis or infection, unspecified Status: Acute Assessment and Plan: - The patient presents with acute biliary pancreatitis, with today's MRCP confirming a distal common bile duct stone. Clinically, there are no signs of acute cholangitis or necrotizing pancreatitis, and the plan is to initiate early feeding with a full liquid diet at breakfast while monitoring repeat morning labs. - Although the common bile duct stone requires extraction, the procedure is currently complicated by an acute myocardial infarction and the absolute need for Clopidogrel and Hepatin. Therefore, we will evaluate the placement of a biliary stent without sphincterotomy as a temporizing measure to prevent biliary obstruction and subsequent cholangitis, but regardless, given his low EF and the immediate post-[place] period, the anesthetic risk for stent placement remains exceedingly high and should be reserved for urgent clinical indications only. Subjective Date/time seen: 09/09/25 17:05 Interval history: Patient continues experiencing moderate intermittent left lower quadrant pain. No nausea, no vomiting. Vital signs have remained stable. Objective Data Vital Signs Vital Signs: Vital Signs - 24 hr 09/08/25 18:00 09/08/25 20:00 09/08/25 20:00 Temperature 98.0 F Pulse Rate 95 88 Respiratory Rate 18 Blood Pressure 136/60 Pulse Oximetry 91 Oxygen Delivery Room Air Oxygen Flow Rate Fraction of Inspired Oxygen 09/08/25 20:00 09/08/25 20:21 09/08/25 20:36 Temperature Pulse Rate 87 81 89 Respiratory Rate 16 Blood Pressure Pulse Oximetry 92 Oxygen Delivery Room Air Oxygen Flow Rate Fraction of Inspired Oxygen 21 09/08/25 20:36 09/08/25 22:00 09/08/25 23:10 Temperature 98.5 F Pulse Rate 89 81 77 Respiratory Rate 16 18 Blood Pressure 122/65 Pulse Oximetry 88 L Oxygen Delivery Oxygen Flow Rate Fraction of Inspired Oxygen 09/08/25 23:15 09/09/25 00:00 09/09/25 00:00 Temperature Pulse Rate 81 Respiratory Rate Blood Pressure Pulse Oximetry 94 Oxygen Delivery Room Air Oxygen Flow Rate Fraction of Inspired Oxygen 09/09/25 01:46 09/09/25 01:49 09/09/25 01:56 Temperature Pulse Rate 89 89 93 Respiratory Rate 14 14 Blood Pressure Pulse Oximetry 83 L Oxygen Delivery Nasal Cannula Oxygen Flow Rate 1 Fraction of Inspired Oxygen 09/09/25 01:56 09/09/25 02:00 09/09/25 04:00 Temperature Pulse Rate 93 74 78 Respiratory Rate 14 20 Blood Pressure Pulse Oximetry 91 94 Oxygen Delivery Nasal Cannula Room Air Oxygen Flow Rate 1 Fraction of Inspired Oxygen 09/09/25 04:00 09/09/25 04:00 09/09/25 06:00 Temperature 98.6 F Pulse Rate 82 78 79 Respiratory Rate 20 Blood Pressure 123/61 Pulse Oximetry 94 Oxygen Delivery Oxygen Flow Rate Fraction of Inspired Oxygen 09/09/25 08:00 09/09/25 08:00 09/09/25 08:00 Temperature Pulse Rate 87 87 Respiratory Rate 20 20 Blood Pressure Pulse Oximetry 93 Oxygen Delivery Nasal Cannula Room Air Oxygen Flow Rate 1 Fraction of Inspired Oxygen 09/09/25 08:00 09/09/25 08:08 09/09/25 08:11 Temperature Pulse Rate 83 92 79 Respiratory Rate 20 20 Blood Pressure 157/69 H Pulse Oximetry 97 Oxygen Delivery Oxygen Flow Rate Fraction of Inspired Oxygen 09/09/25 08:36 09/09/25 10:00 09/09/25 12:00 Temperature 99.2 F Pulse Rate 91 78 84 Respiratory Rate 20 Blood Pressure 134/67 Pulse Oximetry 91 Oxygen Delivery Oxygen Flow Rate Fraction of Inspired Oxygen 09/09/25 12:00 09/09/25 12:00 09/09/25 13:37 Temperature Pulse Rate 84 86 Respiratory Rate 20 Blood Pressure Pulse Oximetry Oxygen Delivery Room Air Oxygen Flow Rate Fraction of Inspired Oxygen 09/09/25 13:42 09/09/25 14:00 09/09/25 15:57 Temperature 98.9 F Pulse Rate 84 89 89 Respiratory Rate 20 20 Blood Pressure 148/62 H Pulse Oximetry 91 Oxygen Delivery Oxygen Flow Rate Fraction of Inspired Oxygen Intake/Output Intake/Output: Intake & Output 09/06/25 09/07/25 09/08/25 09/09/25 23:59 23:59 23:59 23:59 Intake Total 1271.5 4388.2 2380.1 Output Total 1775 7665 1300 Balance -503.5 2713.2 1080.1 Meds/Results Medications: Active Medications Generic Name Dose Route Start Last Admin Trade Name Freq PRN Reason Stop Dose Admin Albuterol/Ipratropium 3 ml 09/07/25 14:00 09/09/25 13:37 Ipratropium 0.5 Mg/Albuterol Sulfate 2.5 Mg (Base) Ampul.Neb 3 Ml INHALATION 3 ml Q6HRT FRANCIS Administration Amlodipine Besylate 10 mg 09/07/25 09:00 09/09/25 08:35 Amlodipine Besylate 10 Mg Tablet PO 10 mg DAILY FRANCIS Administration Aspirin 81 mg 09/07/25 09:00 09/09/25 08:36 Aspirin 81 Mg Enteric Tablet PO 81 mg QAM FRANCIS Administration Clopidogrel Bisulfate 75 mg 09/07/25 09:00 09/09/25 08:36 Clopidogrel Bisulfate 75 Mg Tablet PO 75 mg QAM FRANCIS Administration Dextrose 12.5 gm 09/07/25 07:51 Dextrose 50% 25 Gm/50 Ml Syringe IV PUSH PRN PRN Hypoglycemia Protocol Glucagon 1 mg 09/07/25 07:51 Glucagon For Inj 1 Mg Vial IM PRN PRN Hypoglycemia Protocol Glucose 15 gm 09/07/25 07:51 Glucose Oral Gel 15 Gm Of Glucse In 37.5 Gm Tube PO PRN PRN Hypoglycemia Protocol Heparin Sodium (Porcine) 7,000 units 09/07/25 10:15 Heparin Sodium 5,000 Units/Ml Vial IV PUSH PRN PRN aPTT less than 55 seconds Heparin Sodium (Porcine) 3,500 units 09/07/25 10:15 09/08/25 05:01 Heparin Sodium 5,000 Units/Ml Vial IV PUSH 3,500 units PRN PRN Administration aPTT 55 - 70 seconds Hydralazine HCl 10 mg 09/07/25 07:47 09/08/25 11:51 Hydralazine Hcl 20 Mg/Ml Vial IV PUSH 10 mg Q4H PRN Administration Blood Pressure - High Hydromorphone HCl 0.5 mg 09/08/25 10:30 09/09/25 14:41 Hydromorphone Hcl Inj (*Crx) 1 Mg/Ml Syr IV PUSH 0.5 mg Q3H PRN Administration Pain Rated 7-10 Lactated Ringer's 1,000 mls @ 100 mls/hr 09/07/25 09:15 09/09/25 11:47 Lr - Lactated Ringers Iv IV CONT 100 mls/hr .Q10H FRANCIS Administration Dextrose 1,000 mls @ 100 mls/hr 09/07/25 07:51 Dextrose 5% 1,000 Ml IVPB PRN PRN Hypoglycemia Protocol Heparin Sodium/Dextrose 25,000 units in 250 mls @ 17 mls/hr 09/07/25 10:10 09/09/25 13:15 Heparin Sodium/D5w 100 Units/Ml IV CONT 1,700 units/hr .[id number] FRANCIS 17 mls/hr Protocol Titration 1,700 UNITS/HR Piperacillin Sod/Tazobactam 50 mls @ 100 mls/hr 09/07/25 18:00 09/09/25 13:30 Sod 3.375 gm/ Sodium Chloride IVPB Infused Q6H FRANCIS Infusion Insulin Aspart 3 - 6 units 09/07/25 12:00 09/09/25 13:30 Insulin Aspart (*Bkc) 100 Units/Ml SUB-Q Not Given Q6HR FRANCIS Protocol Lisinopril 40 mg 09/07/25 09:00 09/09/25 08:35 Lisinopril 20 Mg Tablet PO 40 mg DAILY FRANCIS Administration Metoprolol Tartrate 50 mg 09/07/25 09:00 09/09/25 08:36 Metoprolol Tartrate 50 Mg Tab PO 50 mg Q12HR FRANCIS Administration Pantoprazole Sodium 40 mg 09/09/25 09:00 09/09/25 08:35 Pantoprazole 40 Mg Tablet PO 40 mg QAM FRANCIS Administration Radiology Results: ITS Impressions Chest/Abdomen/Pelvis CTA 09/07/25 06:24 IMPRESSION: 1. Complete collapse of left lung. 2. Small left pleural effusion with pleural thickening. 3. Acute interstitial pancreatitis. 4. Severe stenosis of celiac axis. 5. Stent in left common iliac artery with moderate intrastent stenosis. Abdomen Ultrasound 09/07/25 10:33 IMPRESSION: 1. Hepatomegaly, with steatosis. 2. Gallstones. Chest X-Ray 09/08/25 07:53 IMPRESSION: 1. No gross interval change from yesterday. Complete opacification of the left hemithorax. MRCP 09/09/25 13:31 IMPRESSION: 1. Findings above are suggestive of approximately 6 mm size stone in the distal common bile duct just before the ampulla. 2. Findings about the pancreas consistent with mild pancreatitis. No discrete pancreatic lesion or mass seen. 3. Hepatomegaly with fatty liver changes. 4. Other findings as above. Labs Labs: Laboratory Results - last 24 hr 09/08/25 09/08/25 09/08/25 18:14 20:14 21:33 WBC 22.5 H RBC 4.82 Hgb 14.2 Hct 44.9 MCV 93.2 MCH 29.5 MCHC 31.6 L RDW 14.3 Plt Count 189 MPV 9.4 APTT 84.2 H Sodium 132 L Potassium 4.7 Chloride 98 Carbon Dioxide 29 Anion Gap 5 BUN 17 Creatinine 1.21 Estim Creat Clear Calc 61 Estimated GFR > 60 Glucose 161 H POC Capillary Glucose 194 H Calcium 9.2 Troponin I C-Reactive Protein 35.0 H Procalcitonin 09/09/25 09/09/25 09/09/25 00:48 05:56 06:58 WBC RBC Hgb Hct MCV MCH MCHC RDW Plt Count MPV APTT 76.1 H Sodium Potassium Chloride Carbon Dioxide Anion Gap BUN Creatinine Estim Creat Clear Calc Estimated GFR Glucose POC Capillary Glucose 162 H 154 H Calcium Troponin I C-Reactive Protein Procalcitonin 1.2 09/09/25 09/09/25 09:00 11:54 WBC RBC Hgb Hct MCV MCH MCHC RDW Plt Count MPV APTT Sodium Potassium Chloride Carbon Dioxide Anion Gap BUN Creatinine Estim Creat Clear Calc Estimated GFR Glucose POC Capillary Glucose 149 H Calcium Troponin I 3.520 H* C-Reactive Protein Procalcitonin
--- NOTE | 2025-09-09 18:00 | PM.IMPN2 ---
Assessment and Plan Assessment and Plan (1) Pancreatitis: Qualifiers: Chronicity: acute Pancreatitis type: biliary Acute pancreatitis complication: no infection or necrosis Qualified Code(s): K85.10 - Biliary acute pancreatitis without necrosis or infection Code(s): K85.90 - Acute pancreatitis without necrosis or infection, unspecified Status: Acute Assessment and Plan: Patient presented with abdominal pain, nausea, vomiting -lipase levels was 10,643 -patient also had a concomitant ST-elevation [place] -adequately fluid-resuscitated -triglyceride levels a 214 (normal levels of 150) -09/07/2025: RUQ ultrasound: Showed hepatomegaly with steatosis and gallstones, common bile duct 10 mm, no intrahepatic biliary ductal dilatation -alcohol level < 10, patient denies any alcohol abuse, states he drinks 1 [place] every couple of weeks -patient started on maintenance IV fluids -started Zosyn for cholangitis (09/07) -pain control with Dilaudid -appreciate GI evaluation and recommendation, MRCP today (09/08) (2) Elevated liver enzymes: Code(s): R74.8 - Abnormal levels of other serum enzymes Status: Acute Assessment and Plan: Elevated liver enzymes could be related to pancreatitis, STEMI, decreased perfusion -RUQ ultrasound as above -hepatitis panel was negative -likely related to gallstone pancreatitis, cholangitis -LFTs and bilirubin improving, continue antibiotics as above for cholangitis (3) ST elevation [place] (STEMI): Qualifiers: Involved coronary artery: other coronary artery Qualified Code(s): I21.29 - ST elevation (STEMI) myocardial infarction involving other sites Code(s): I21.3 - ST elevation (STEMI) myocardial infarction of unspecified site Status: Acute Assessment and Plan: Inferior ST-elevation [place] on EKG, status post cardiac catheterization showed occluded branch of the RPL, moderate left main and LAD stenosis, systolic cardiomyopathy with severe hypokinesis of the inferior wall, medical management. -09/07: continue heparin infusion for 48 hours -patient started on aspirin, clopidogrel -continue lisinopril, amlodipine and metoprolol 05/2020: Echocardiogram: EF 20% (4) Acute kidney injury: Code(s): N17.9 - Acute kidney failure, unspecified Status: Acute Assessment and Plan: Acute kidney injury likely related to ST-elevation [place], - gently hydrate -continue to monitor urine output, renal function and electrolyte (5) Collapse of left lung: Code(s): J98.11 - Atelectasis Status: Acute Assessment and Plan: Collapse of the left lung, patient does have a history of non-small cell lung cancer on the left side. 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 -patient currently on oxygen via 2 L nasal cannula -continue bronchodilator (6) Peripheral vascular disease: Code(s): I73.9 - Peripheral vascular disease, unspecified Status: Acute Assessment and Plan: Patient has a history of peripheral vascular disease with [employer] stent Patient also has severe stenosis of celiac axis, -consulted surgery, date on take care of celiac axis occlusions, if conditions worsens, patient may have to be transferred to higher level of care -lactic acid 1.6, -09/07/25: CTA chest abdomen and pelvis IMPRESSION: 1. Complete collapse of left lung. 2. Small left pleural effusion with pleural thickening. 3. Acute interstitial pancreatitis. 4. Severe stenosis of celiac axis. 5. Stent in left common iliac artery with moderate intrastent stenosis. (7) Atrial fibrillation: Code(s): I48.91 - Unspecified atrial fibrillation Status: Acute Assessment and Plan: History of atrial fibrillation, on Eliquis at home -on heparin infusion (8) COPD (chronic obstructive pulmonary disease): Qualifiers: COPD type: unspecified COPD Qualified Code(s): J44.9 - Chronic obstructive pulmonary disease, unspecified Code(s): J44.9 - Chronic obstructive pulmonary disease, unspecified Status: Acute Assessment and Plan: Continue bronchodilators (9) Coronary artery disease: Code(s): I25.10 - Atherosclerotic heart disease of [place] coronary artery without angina pectoris Status: Acute Assessment and Plan: History of coronary artery disease, follows with Dr. Gonzalez -cardiology following the pt (10) Diabetes: Code(s): E11.9 - Type 2 diabetes mellitus without complications Status: Acute Assessment and Plan: Sliding scale insulin Accu-Chek (11) Essential hypertension: Code(s): I10 - Essential (primary) hypertension Status: Acute Assessment and Plan: Patient hypertensive, continue p.r.n. hydralazine -continue amlodipine, metoprolol and lisinopril (12) Non-small cell lung cancer: Qualifiers: Laterality: unspecified laterality Qualified Code(s): C34.90 - Malignant neoplasm of unspecified part of unspecified bronchus or lung Code(s): C34.90 - Malignant neoplasm of unspecified part of unspecified bronchus or lung Status: Acute Assessment and Plan: History of non-small cell lung cancer on the left side, with chronic left lung collapse due to radiation -follows pulmonology at [facility] Plan DVT prophylaxis: On heparin infusion Stress ulcer prophylaxis: Protonix Nutrition: NPO for now Code Status: Full code Subjective Date/time seen: 09/09/25 18:00 Interval history: Patient underwent cardiac cath but unable to stent. Also waiting to undergo MRCP due to pancreatitis. No hx of alcholism and new drugs. Evidence of gall stones Review of Systems Review of Systems: All systems reviewed & are unremarkable except as noted in HPI and below Exam Narrative: General: Pleasant gentleman, in no acute distress HEENT:? Pupils equal and reactive, sclera icteric, moist oral mucosa Neck:? Supple Respiratory:? Significantly decreased breath sounds on the left, right side is clear to auscultation, decreased at bases, no wheeze Cardiac:? S1-S2 normal, regular rate and rhythm Abdomen:? Soft, nondistended, tenderness in the epigastrium and periumbilical area, hypoactive bowel sounds Extremities:? No edema, palpable pedal pulses, right radial catheterization site with no ecchymosis or hematoma. Palpable radial pulse on the right Neuro:? Patient is awake, alert, oriented x3, nonfocal Skin:? No skin lesions noted Psych:? Normal mentation and affect Objective Data Vital Signs Vital Signs: Vital Signs - 24 hr 09/08/25 20:00 09/08/25 20:00 09/08/25 20:00 Temperature 98.0 F Pulse Rate 88 87 Respiratory Rate 18 Blood Pressure 136/60 Pulse Oximetry 91 Oxygen Delivery Room Air Oxygen Flow Rate Fraction of Inspired Oxygen 09/08/25 20:21 09/08/25 20:36 09/08/25 20:36 Temperature Pulse Rate 81 89 89 Respiratory Rate 16 16 Blood Pressure Pulse Oximetry 92 Oxygen Delivery Room Air Oxygen Flow Rate Fraction of Inspired Oxygen 21 09/08/25 22:00 09/08/25 23:10 09/08/25 23:15 Temperature 98.5 F Pulse Rate 81 77 Respiratory Rate 18 Blood Pressure 122/65 Pulse Oximetry 88 L 94 Oxygen Delivery Oxygen Flow Rate Fraction of Inspired Oxygen 09/09/25 00:00 09/09/25 00:00 09/09/25 01:46 Temperature Pulse Rate 81 89 Respiratory Rate 14 Blood Pressure Pulse Oximetry Oxygen Delivery Room Air Oxygen Flow Rate Fraction of Inspired Oxygen 09/09/25 01:49 09/09/25 01:56 09/09/25 01:56 Temperature Pulse Rate 89 93 93 Respiratory Rate 14 14 Blood Pressure Pulse Oximetry 83 L 91 Oxygen Delivery Nasal Cannula Nasal Cannula Oxygen Flow Rate 1 1 Fraction of Inspired Oxygen 09/09/25 02:00 09/09/25 04:00 09/09/25 04:00 Temperature Pulse Rate 74 78 82 Respiratory Rate 20 Blood Pressure Pulse Oximetry 94 Oxygen Delivery Room Air Oxygen Flow Rate Fraction of Inspired Oxygen 09/09/25 04:00 09/09/25 06:00 09/09/25 08:00 Temperature 98.6 F Pulse Rate 78 79 87 Respiratory Rate 20 20 Blood Pressure 123/61 Pulse Oximetry 94 93 Oxygen Delivery Nasal Cannula Oxygen Flow Rate 1 Fraction of Inspired Oxygen 09/09/25 08:00 09/09/25 08:00 09/09/25 08:00 Temperature Pulse Rate 87 83 Respiratory Rate 20 Blood Pressure Pulse Oximetry Oxygen Delivery Room Air Oxygen Flow Rate Fraction of Inspired Oxygen 09/09/25 08:08 09/09/25 08:11 09/09/25 08:36 Temperature Pulse Rate 92 79 91 Respiratory Rate 20 20 Blood Pressure 157/69 H Pulse Oximetry 97 Oxygen Delivery Oxygen Flow Rate Fraction of Inspired Oxygen 09/09/25 10:00 09/09/25 12:00 09/09/25 12:00 Temperature 99.2 F Pulse Rate 78 84 Respiratory Rate 20 Blood Pressure 134/67 Pulse Oximetry 91 Oxygen Delivery Room Air Oxygen Flow Rate Fraction of Inspired Oxygen 09/09/25 12:00 09/09/25 13:37 09/09/25 13:42 Temperature Pulse Rate 84 86 84 Respiratory Rate 20 20 Blood Pressure Pulse Oximetry Oxygen Delivery Oxygen Flow Rate Fraction of Inspired Oxygen 09/09/25 14:00 09/09/25 15:57 09/09/25 16:00 Temperature 98.9 F Pulse Rate 89 89 Respiratory Rate 20 Blood Pressure 148/62 H Pulse Oximetry 91 Oxygen Delivery Room Air Oxygen Flow Rate Fraction of Inspired Oxygen Intake/Output Intake/Output: Intake & Output 12/1509/07/25 09/08/25 09/09/25 23:59 23:59 23:59 23:59 Intake Total 1271.5 4388.2 2380.1 Output Total 7689 6032 1300 Balance -503.5 2713.2 1080.1 Meds/Results Medications: Active Medications Generic Name Dose Route Start Last Admin Trade Name Freq PRN Reason Stop Dose Admin Albuterol/Ipratropium 3 ml 09/07/25 14:00 09/09/25 13:37 Ipratropium 0.5 Mg/Albuterol Sulfate 2.5 Mg (Base) Ampul.Neb 3 Ml INHALATION 3 ml Q6HRT FRANCIS Administration Amlodipine Besylate 10 mg 09/07/25 09:00 09/09/25 08:35 Amlodipine Besylate 10 Mg Tablet PO 10 mg DAILY FRANCIS Administration Aspirin 81 mg 09/07/25 09:00 09/09/25 08:36 Aspirin 81 Mg Enteric Tablet PO 81 mg QAM FRANCIS Administration Clopidogrel Bisulfate 75 mg 09/07/25 09:00 09/09/25 08:36 Clopidogrel Bisulfate 75 Mg Tablet PO 75 mg QAM FRANCIS Administration Dextrose 12.5 gm 09/07/25 07:51 Dextrose 50% 25 Gm/50 Ml Syringe IV PUSH PRN PRN Hypoglycemia Protocol Glucagon 1 mg 09/07/25 07:51 Glucagon For Inj 1 Mg Vial IM PRN PRN Hypoglycemia Protocol Glucose 15 gm 09/07/25 07:51 Glucose Oral Gel 15 Gm Of Glucse In 37.5 Gm Tube PO PRN PRN Hypoglycemia Protocol Heparin Sodium (Porcine) 7,000 units 09/07/25 10:15 Heparin Sodium 5,000 Units/Ml Vial IV PUSH PRN PRN aPTT less than 55 seconds Heparin Sodium (Porcine) 3,500 units 09/07/25 10:15 09/08/25 05:01 Heparin Sodium 5,000 Units/Ml Vial IV PUSH 3,500 units PRN PRN Administration aPTT 55 - 70 seconds Hydralazine HCl 10 mg 09/07/25 07:47 09/08/25 11:51 Hydralazine Hcl 20 Mg/Ml Vial IV PUSH 10 mg Q4H PRN Administration Blood Pressure - High Hydromorphone HCl 0.5 mg 09/08/25 10:30 09/09/25 17:39 Hydromorphone Hcl Inj (*Crx) 1 Mg/Ml Syr IV PUSH 0.5 mg Q3H PRN Administration Pain Rated 7-10 Lactated Ringer's 1,000 mls @ 100 mls/hr 09/07/25 09:15 09/09/25 11:47 Lr - Lactated Ringers Iv IV CONT 100 mls/hr .Q10H FRANCIS Administration Dextrose 1,000 mls @ 100 mls/hr 09/07/25 07:51 Dextrose 5% 1,000 Ml IVPB PRN PRN Hypoglycemia Protocol Heparin Sodium/Dextrose 25,000 units in 250 mls @ 17 mls/hr 09/07/25 10:10 09/09/25 13:15 Heparin Sodium/D5w 100 Units/Ml IV CONT 1,700 units/hr .[id number] FRANCIS 17 mls/hr Protocol Titration 1,700 UNITS/HR Piperacillin Sod/Tazobactam 50 mls @ 100 mls/hr 09/07/25 18:00 09/09/25 17:43 Sod 3.375 gm/ Sodium Chloride IVPB 100 mls/hr Q6H FRANCIS Administration Insulin Aspart 3 - 6 units 09/07/25 12:00 09/09/25 17:38 Insulin Aspart (*Bkc) 100 Units/Ml SUB-Q Not Given Q6HR FRANCIS Protocol Lisinopril 40 mg 09/07/25 09:00 09/09/25 08:35 Lisinopril 20 Mg Tablet PO 40 mg DAILY FRANCIS Administration Metoprolol Tartrate 50 mg 09/07/25 09:00 09/09/25 08:36 Metoprolol Tartrate 50 Mg Tab PO 50 mg Q12HR FRANCIS Administration Pantoprazole Sodium 40 mg 09/09/25 09:00 09/09/25 08:35 Pantoprazole 40 Mg Tablet PO 40 mg QAM FRANCIS Administration Radiology Results: ITS Impressions Chest/Abdomen/Pelvis CTA 09/07/25 06:24 IMPRESSION: 1. Complete collapse of left lung. 2. Small left pleural effusion with pleural thickening. 3. Acute interstitial pancreatitis. 4. Severe stenosis of celiac axis. 5. Stent in left common iliac artery with moderate intrastent stenosis. Abdomen Ultrasound 09/07/25 10:33 IMPRESSION: 1. Hepatomegaly, with steatosis. 2. Gallstones. Chest X-Ray 09/08/25 07:53 IMPRESSION: 1. No gross interval change from yesterday. Complete opacification of the left hemithorax. MRCP 09/09/25 13:31 IMPRESSION: 1. Findings above are suggestive of approximately 6 mm size stone in the distal common bile duct just before the ampulla. 2. Findings about the pancreas consistent with mild pancreatitis. No discrete pancreatic lesion or mass seen. 3. Hepatomegaly with fatty liver changes. 4. Other findings as above. Labs Labs: Laboratory Results - last 24 hr 09/08/25 09/08/25 09/08/25 18:14 20:14 21:33 WBC 22.5 H RBC 4.82 Hgb 14.2 Hct 44.9 MCV 93.2 MCH 29.5 MCHC 31.6 L RDW 14.3 Plt Count 189 MPV 9.4 APTT 84.2 H Sodium 132 L Potassium 4.7 Chloride 98 Carbon Dioxide 29 Anion Gap 5 BUN 17 Creatinine 1.21 Estim Creat Clear Calc 61 Estimated GFR > 60 Glucose 161 H POC Capillary Glucose 194 H Calcium 9.2 Troponin I C-Reactive Protein 35.0 H Procalcitonin 09/09/25 09/09/25 09/09/25 00:48 05:56 06:58 WBC RBC Hgb Hct MCV MCH MCHC RDW Plt Count MPV APTT 76.1 H Sodium Potassium Chloride Carbon Dioxide Anion Gap BUN Creatinine Estim Creat Clear Calc Estimated GFR Glucose POC Capillary Glucose 162 H 154 H Calcium Troponin I C-Reactive Protein Procalcitonin 1.2 09/09/25 09/09/25 09/09/25 09:00 11:54 17:06 WBC RBC Hgb Hct MCV MCH MCHC RDW Plt Count MPV APTT Sodium Potassium Chloride Carbon Dioxide Anion Gap BUN Creatinine Estim Creat Clear Calc Estimated GFR Glucose POC Capillary Glucose 149 H 129 H Calcium Troponin I 3.520 H* C-Reactive Protein Procalcitonin Quality VTE Prophylaxis VTE prophylaxis: pharmacologic ordered Hospitalist MIPS Advance Care Plan I have confirmed that the patient's Advanced Care Plan is present, code status is documented, or surrogate decision maker is listed in patient medical record.: Yes Medication Reconciliation I have utilized all available resources to obtain, update and review the patients current medications (includes all prescriptions, OTC, herbals, cannabis, and nutritional supplements).: Yes
[2025-09-09 18:05] LABS: Hematocrit 42.1 % (42.0-52.0); Hemoglobin 13.5 g/dL (14.0-18.0); Mean Corpuscular HGB Conc 32.1 g/dl (32-36); Mean Corpuscular Hemoglobin 29.6 pg (26-34); Mean Corpuscular Volume 92.3 fl (80-100); Platelet Count Result 174 k/mm3 (150-375); Red Blood Count 4.56 M/mm3 (4.6-6.20); White Blood Count 20.2 K/mm3 (4.5-10.0)
[2025-09-09 18:50] LABS: Alanine Aminotransferase 151 U/L (6-50); Albumin Level 3.3 g/dL (3.5-5.1); Alkaline Phosphatase 144 U/L (38-126); Anion Gap 6 mmol/L (4-12); Aspartate Amino Transferase 49 U/L (17-59); Bilirubin,Total 2.1 mg/dL (0.2-1.3); Blood Urea Nitrogen 14 mg/dL (9-20); CRP 36.5 mg/dL (<1.0); Calcium 9.2 mg/dL (8.4-10.2); Carbon Dioxide 27 mmol/L (22-30); Chloride 98 mmol/L (98-107); Estimated CRCL calculation 82 ml/min; Estimated Glomerular Filt Rate > 60; Glucose 123 mg/dL (65-110); Potassium 4.4 mmol/L (3.4-5.0); Sodium 131 mmol/L (137-145); Total Protein 6.6 g/dL (6.3-8.2)
[2025-09-10] VITALS (22 sets, daily range): BP systolic 129–162; BP diastolic 65–85; PULSE 71–109; RESP 14–20; TEMP 36.4–36.9; O2SAT 93–100
[2025-09-10] MEDS: IPRATROPIUM 0.5 MG/ALBUTEROL SULFATE 2.5 MG (BASE) AMPUL.NEB 3 ML INHALATION ×4 (01:09→20:56)
[2025-09-10] MEDS: HYDROmorphone HCL INJ (*CRX) 1 MG/ML SYR 0.5 MG IV PUSH ×2 (02:50→05:23)
[2025-09-10 04:50] LABS: Hematocrit 41.7 % (42.0-52.0); Hemoglobin 13.1 g/dL (14.0-18.0); Mean Corpuscular HGB Conc 31.4 g/dl (32-36); Mean Corpuscular Hemoglobin 29.6 pg (26-34); Mean Corpuscular Volume 94.3 fl (80-100); Platelet Count Result 165 k/mm3 (150-375); Red Blood Count 4.42 M/mm3 (4.6-6.20); White Blood Count 17.2 K/mm3 (4.5-10.0)
[2025-09-10 05:05] LABS: Partial Thromboplastin Time 71.8 Seconds (22.3-36.8)
[2025-09-10 05:14] LABS: Alanine Aminotransferase 129 U/L (6-50); Albumin Level 3.2 g/dL (3.5-5.1); Alkaline Phosphatase 143 U/L (38-126); Anion Gap 6 mmol/L (4-12); Aspartate Amino Transferase 41 U/L (17-59); Bilirubin,Total 1.8 mg/dL (0.2-1.3); Blood Urea Nitrogen 14 mg/dL (9-20); Calcium 9.3 mg/dL (8.4-10.2); Carbon Dioxide 31 mmol/L (22-30); Chloride 97 mmol/L (98-107); Estimated CRCL calculation 75 ml/min; Estimated Glomerular Filt Rate > 60; Glucose 146 mg/dL (65-110); Potassium 4.5 mmol/L (3.4-5.0); Sodium 134 mmol/L (137-145); Total Protein 6.6 g/dL (6.3-8.2)
[2025-09-10] MEDS: PIPERACILLIN/TAZOBACTAM SOD 3.375 GM in SODIUM CHLORIDE 0.9% IV 50 ML 100 ML IVPB (05:23)
[2025-09-10 05:45] LABS: CRP 36.3 mg/dL (<1.0)
--- NOTE | 2025-09-10 07:26 | WPDGIPROGNO ---
Progress Note: A&P Assessment and Plan (1) Pancreatitis: Qualifiers: Chronicity: acute Pancreatitis type: biliary Acute pancreatitis complication: no infection or necrosis Qualified Code(s): K85.10 - Biliary acute pancreatitis without necrosis or infection Code(s): K85.90 - Acute pancreatitis without necrosis or infection, unspecified Status: Acute Assessment and Plan: - This patient with acute biliary pancreatitis is having a favorable clinical course without evidence of respiratory, renal, or circulatory failure. While MRCP confirmed a common bile duct stone, both transaminases and bilirubin are trending downward alongside a normalizing white blood cell count. - Given this clinical improvement and his recent myocardial infarction, there is no current indication for ERCP or intervention unless he develops signs of cholangitis, in which case a stent placement without sphincterotomy would be considered. - His initial markedly high WBC (28K) and his still high CRP reflect SIRS more than sepsis. Broad-spectrum antibiotics initially started for suspected cholangitis will therefore be de-escalated from Zosyn to Rocephin today. - His left lower quadrant pain is clinically consistent with intestinal discomfort related to five days of constipation; consequently, his diet will be advanced from liquids to a soft mechanical diet today, and dicyclomine will be administered every 8 hours to manage symptoms while trying to avoiding narcotics. Plan - Advance diet - Ceftriaxone in replacement of Zosyn - Dycyclomine 10 mg tiD for LLQ pain - Continue monitoring CRP, CMP and CBC - vigilance for cholangitis or evidence of clinical worsening Subjective Date/time seen: 09/10/25 07:26 Interval history: The patient feels better although he is still complains of left lower quadrant abdominal pain, as requiring analgesics. No chest pain, shortness of breath. Laboratory data: 09/09/2025: Procalcitonin 1.2 (normal) today: WBC 17.2, hematocrit 41.7%, sodium 134, potassium 4.5, bilirubin 1.8, AST 41, ALT 129, alk-phos 143, CRP 36.3 Exam Const: General: comfortable and no acute distress Eyes: Sclera: sclerae normal Resp: Effort & Inspection: normal respiratory effort Auscultation: clear to auscultation bilaterally, no crackles, no rales and no rhonchi Cardio: Rate: regular rate Rhythm: regular rhythm GI: Inspection: non-distended GI Palp: Yes Soft to palpation, No Firmness to palpation present (GI) and No Tenderness to palpation present (GI) Auscultation: normal bowel sounds Objective Data Vital Signs Vital Signs: Vital Signs - 24 hr 09/09/25 08:00 09/09/25 08:00 09/09/25 08:00 Temperature Pulse Rate 87 87 Respiratory Rate 20 20 Blood Pressure Pulse Oximetry 93 Oxygen Delivery Nasal Cannula Room Air Oxygen Flow Rate 1 09/09/25 08:00 09/09/25 08:08 09/09/25 08:11 Temperature Pulse Rate 83 92 79 Respiratory Rate 20 20 Blood Pressure 157/69 H Pulse Oximetry 97 Oxygen Delivery Oxygen Flow Rate 09/09/25 08:36 09/09/25 10:00 09/09/25 12:00 Temperature 99.2 F Pulse Rate 91 78 84 Respiratory Rate 20 Blood Pressure 134/67 Pulse Oximetry 91 Oxygen Delivery Oxygen Flow Rate 09/09/25 12:00 09/09/25 12:00 09/09/25 13:37 Temperature Pulse Rate 84 86 Respiratory Rate 20 Blood Pressure Pulse Oximetry Oxygen Delivery Room Air Oxygen Flow Rate 09/09/25 13:42 09/09/25 14:00 09/09/25 15:57 Temperature 98.9 F Pulse Rate 84 89 89 Respiratory Rate 20 20 Blood Pressure 148/62 H Pulse Oximetry 91 Oxygen Delivery Oxygen Flow Rate 09/09/25 16:00 09/09/25 16:00 09/09/25 18:00 Temperature Pulse Rate 79 89 Respiratory Rate Blood Pressure Pulse Oximetry Oxygen Delivery Room Air Oxygen Flow Rate 09/09/25 20:00 09/09/25 20:00 09/09/25 20:00 Temperature 97.6 F Pulse Rate 90 88 Respiratory Rate 20 Blood Pressure 130/54 L Pulse Oximetry 91 Oxygen Delivery Room Air Oxygen Flow Rate 09/09/25 20:18 09/09/25 20:18 09/09/25 20:23 Temperature Pulse Rate 91 85 Respiratory Rate 16 16 Blood Pressure Pulse Oximetry 93 Oxygen Delivery Room Air Oxygen Flow Rate 09/09/25 20:31 09/09/25 22:00 09/09/25 23:40 Temperature 97.7 F Pulse Rate 102 H 91 80 Respiratory Rate 20 Blood Pressure 145/74 H Pulse Oximetry 97 Oxygen Delivery Oxygen Flow Rate 09/10/25 00:00 09/10/25 00:00 09/10/25 01:09 Temperature Pulse Rate 78 71 Respiratory Rate Blood Pressure Pulse Oximetry Oxygen Delivery Room Air Oxygen Flow Rate 09/10/25 01:17 09/10/25 02:00 09/10/25 04:00 Temperature 97.6 F Pulse Rate 76 80 77 Respiratory Rate 20 Blood Pressure 131/65 Pulse Oximetry 100 Oxygen Delivery Oxygen Flow Rate 09/10/25 04:00 09/10/25 04:00 09/10/25 06:00 Temperature Pulse Rate 75 72 Respiratory Rate Blood Pressure Pulse Oximetry Oxygen Delivery Room Air Oxygen Flow Rate Intake/Output Intake/Output: Intake & Output 09/07/25 09/08/25 09/09/25 09/10/25 23:59 23:59 23:59 23:59 Intake Total 1271.5 4388.2 3639.9 113.1 Output Total 1775 1675 2850 500 Balance -503.5 2713.2 789.9 -386.9 Meds/Results Medications: Active Medications Generic Name Dose Route Start Last Admin Trade Name Freq PRN Reason Stop Dose Admin Albuterol/Ipratropium 3 ml 09/07/25 14:00 09/10/25 01:09 Ipratropium 0.5 Mg/Albuterol Sulfate 2.5 Mg (Base) Ampul.Neb 3 Ml INHALATION 3 ml Q6HRT FRANCIS Administration Amlodipine Besylate 10 mg 09/07/25 09:00 09/09/25 08:35 Amlodipine Besylate 10 Mg Tablet PO 10 mg DAILY FRANCIS Administration Aspirin 81 mg 09/07/25 09:00 09/09/25 08:36 Aspirin 81 Mg Enteric Tablet PO 81 mg QAM FRANCIS Administration Clopidogrel Bisulfate 75 mg 09/07/25 09:00 09/09/25 08:36 Clopidogrel Bisulfate 75 Mg Tablet PO 75 mg QAM FRANCIS Administration Dextrose 12.5 gm 09/07/25 07:51 Dextrose 50% 25 Gm/50 Ml Syringe IV PUSH PRN PRN Hypoglycemia Protocol Dicyclomine HCl 10 mg 09/10/25 07:24 Dicyclomine Hcl 10 Mg Capsule PO Q8H PRN pain Glucagon 1 mg 09/07/25 07:51 Glucagon For Inj 1 Mg Vial IM PRN PRN Hypoglycemia Protocol Glucose 15 gm 09/07/25 07:51 Glucose Oral Gel 15 Gm Of Glucse In 37.5 Gm Tube PO PRN PRN Hypoglycemia Protocol Heparin Sodium (Porcine) 7,000 units 09/07/25 10:15 Heparin Sodium 5,000 Units/Ml Vial IV PUSH PRN PRN aPTT less than 55 seconds Heparin Sodium (Porcine) 3,500 units 09/07/25 10:15 09/08/25 05:01 Heparin Sodium 5,000 Units/Ml Vial IV PUSH 3,500 units PRN PRN Administration aPTT 55 - 70 seconds Hydralazine HCl 10 mg 09/07/25 07:47 09/08/25 11:51 Hydralazine Hcl 20 Mg/Ml Vial IV PUSH 10 mg Q4H PRN Administration Blood Pressure - High Hydromorphone HCl 0.5 mg 09/08/25 10:30 09/10/25 05:23 Hydromorphone Hcl Inj (*Crx) 1 Mg/Ml Syr IV PUSH 0.5 mg Q3H PRN Administration Pain Rated 7-10 Lactated Ringer's 1,000 mls @ 100 mls/hr 09/07/25 09:15 09/09/25 22:39 Lr - Lactated Ringers Iv IV CONT 100 mls/hr .Q10H FRANCIS Administration Dextrose 1,000 mls @ 100 mls/hr 09/07/25 07:51 Dextrose 5% 1,000 Ml IVPB PRN PRN Hypoglycemia Protocol Heparin Sodium/Dextrose 25,000 units in 250 mls @ 17 mls/hr 09/07/25 10:10 09/10/25 05:18 Heparin Sodium/D5w 100 Units/Ml IV CONT 1,700 units/hr .[id number] FRANCIS 17 mls/hr Protocol Titration 1,700 UNITS/HR Ceftriaxone Sodium 1 gm/ 50 mls @ 100 mls/hr 09/10/25 08:00 Sodium Chloride IVPB Q24H [facility] Insulin Aspart 3 - 6 units 09/07/25 12:00 09/10/25 05:18 Insulin Aspart (*Bkc) 100 Units/Ml SUB-Q Not Given Q6HR COUNTS INCLUDE 234 BEDS AT [facility] Protocol Lisinopril 40 mg 09/07/25 09:00 09/09/25 08:35 Lisinopril 20 Mg Tablet PO 40 mg DAILY FRANCIS Administration Metoprolol Tartrate 50 mg 09/07/25 09:00 09/09/25 20:31 Metoprolol Tartrate 50 Mg Tab PO 50 mg Q12HR FR[facility]IS Administration Pantoprazole Sodium 40 mg 09/09/25 09:00 09/09/25 08:35 Pantoprazole 40 Mg Tablet PO 40 mg QAM FRANCIS Administration Radiology Results: ITS Impressions Chest/Abdomen/Pelvis CTA 09/07/25 06:24 IMPRESSION: 1. Complete collapse of left lung. 2. Small left pleural effusion with pleural thickening. 3. Acute interstitial pancreatitis. 4. Severe stenosis of celiac axis. 5. Stent in left common iliac artery with moderate intrastent stenosis. Abdomen Ultrasound 09/07/25 10:33 IMPRESSION: 1. Hepatomegaly, with steatosis. 2. Gallstones. Chest X-Ray 09/08/25 07:53 IMPRESSION: 1. No gross interval change from yesterday. Complete opacification of the left hemithorax. MRCP 09/09/25 13:31 IMPRESSION: 1. Findings above are suggestive of approximately 6 mm size stone in the distal common bile duct just before the ampulla. 2. Findings about the pancreas consistent with mild pancreatitis. No discrete pancreatic lesion or mass seen. 3. Hepatomegaly with fatty liver changes. 4. Other findings as above. Labs Labs: Laboratory Results - last 24 hr 09/09/25 09/09/25 09/09/25 09:00 11:54 17:06 WBC RBC Hgb Hct MCV MCH MCHC RDW Plt Count MPV APTT Sodium Potassium Chloride Carbon Dioxide Anion Gap BUN Creatinine Estim Creat Clear Calc Estimated GFR Glucose POC Capillary Glucose 149 H 129 H Calcium Total Bilirubin AST ALT Alkaline Phosphatase Troponin I 3.520 H* C-Reactive Protein Total Protein Albumin 09/09/25 09/10/25 09/10/25 17:59 00:20 04:25 WBC 20.2 H 17.2 H RBC 4.56 L 4.42 L Hgb 13.5 L 13.1 L Hct 42.1 41.7 L MCV 92.3 94.3 MCH 29.6 29.6 MCHC 32.1 31.4 L RDW 14.3 14.2 Plt Count 174 165 MPV 9.8 10.3 APTT 71.8 H Sodium 131 L 134 L Potassium 4.4 4.5 Chloride 98 97 L Carbon Dioxide 27 31 H Anion Gap 6 6 BUN 14 14 Creatinine 1.01 1.12 Estim Creat Clear Calc 82 75 Estimated GFR > 60 > 60 Glucose 123 H 146 H POC Capillary Glucose 155 H Calcium 9.2 9.3 Total Bilirubin 2.1 H 1.8 H AST 49 41 ALT 151 H 129 H Alkaline Phosphatase 144 H 143 H Troponin I C-Reactive Protein 36.5 H 36.3 H Total Protein 6.6 6.6 Albumin 3.3 L 3.2 L
--- NOTE | 2025-09-10 08:13 | PM.PNCARD ---
Progress Note: A&P Assessment and Plan (1) ST elevation myocardial infarction (STEMI) of inferior wall: Code(s): I21.19 - ST elevation (STEMI) myocardial infarction involving other coronary artery of inferior wall Status: Acute (2) Atrial fibrillation: Code(s): I48.91 - Unspecified atrial fibrillation Status: Acute (3) Peripheral vascular disease: Code(s): I73.9 - Peripheral vascular disease, unspecified Status: Acute (4) Coronary artery disease: Code(s): I25.10 - Atherosclerotic heart disease of [place] coronary artery without angina pectoris Status: Acute (5) Chronic systolic heart failure: Code(s): I50.22 - Chronic systolic (congestive) heart failure Status: Acute Plan 65-year-old man with CAD status post PCI, peripheral arterial disease status post [employer] stenting, paroxysmal atrial fibrillation on Eliquis, chronic systolic heart failure, and lung cancer presented with abdominal pain whose ECG was concerning for late presentation STEMI. Patient had troponin peak at 18 (17.5, 18, 14.9, 3.52). EKG showed inferior ST elevation and lateral ST depressions. Cardiac cath showed 100% occlusion of distal RPLA. No intervention was performed due to distal nature of the occlusion. Cath also showed chronic CAD with 50% stenosis of LM ostium and body, and 50-60% stenosis of distal LM, 60-70% stenosis of ostial LAD, 60% stenosis of ostial RPDA. Chronic CAD, h/p PCI to LAD- most recent cath showed 50% ostial, body and distal LM, 60-70% ostial LAD stenosis Inferior STEMI secondary to 100% occlusion of distal RPLA. No intervention was performed due to distal nature of occlusion (<2mm vessel) -Continue medical management with asa, plavix, statin, BB -SL nitroglycerin 0.4mg Q5 min x 3 prn for chest pain -Evaluation of LM and LAD disease and revascularize if significant-- after patient recovers from his acute illness Paroxysmal atrial fibrillation -remains in NSR today -heparin for anticoagulation. Restart Eliquis when ok per primary team. When Eliquis is resumed, stop asa Chronic systolic heart failure- LVEF of 40% -continue guideline directed medical therapy with lisinopril, Metoprolol, empagliflozin Peripheral arterial disease status post [employer] stenting -continue aspirin 81 mg p.o. daily Hypertension -patient BP elevated most likely secondary to abdominal pain -prn hydralazine is ordered -continue oral meds as able Left lung collapse; h/o left lung ca -recommend pulmonary evaluation prior to any anesthesia Acute pancreatitis -with associated leukocytosis, elevated LFTs, lipase and abdominal pain -GI following Severe Celiac artery stenosis Subjective Date/time seen: 09/10/25 08:13 Interval history: Reason for encounter: Inferior STEMI Date of Service 09/10/2025- No further chest pain. He has abdominal pain. No SOB. Review of Systems Cardiovascular: Comments: As per HPI Respiratory: Comments: As per HPI Exam Narrative: General: Alert oriented x3, no acute distress Neck: Supple, no JVD Chest: Bilaterally clear to auscultation, no rales or rhonchi Cardiac: S1, S2 +, regular rate, regular rhythm, no murmurs or rubs Extremities: No pedal edema, no skin rash Neurologic: Alert and oriented x3, no focal neurological deficits Objective Data Vital Signs Vital Signs: Vital Signs - 24 hr 09/09/25 08:36 09/09/25 10:00 09/09/25 12:00 Temperature 37.3 C Pulse Rate 91 78 84 Respiratory Rate 20 Blood Pressure 134/67 Pulse Oximetry 91 Oxygen Delivery 09/09/25 12:00 09/09/25 12:00 09/09/25 13:37 Temperature Pulse Rate 84 86 Respiratory Rate 20 Blood Pressure Pulse Oximetry Oxygen Delivery Room Air 09/09/25 13:42 09/09/25 14:00 09/09/25 15:57 Temperature 37.2 C Pulse Rate 84 89 89 Respiratory Rate 20 20 Blood Pressure 148/62 H Pulse Oximetry 91 Oxygen Delivery 09/09/25 16:00 09/09/25 16:00 09/09/25 18:00 Temperature Pulse Rate 79 89 Respiratory Rate Blood Pressure Pulse Oximetry Oxygen Delivery Room Air 09/09/25 20:00 09/09/25 20:00 09/09/25 20:00 Temperature 36.4 C Pulse Rate 90 88 Respiratory Rate 20 Blood Pressure 130/54 L Pulse Oximetry 91 Oxygen Delivery Room Air 09/09/25 20:18 09/09/25 20:18 09/09/25 20:23 Temperature Pulse Rate 91 85 Respiratory Rate 16 16 Blood Pressure Pulse Oximetry 93 Oxygen Delivery Room Air 09/09/25 20:31 09/09/25 22:00 09/09/25 23:40 Temperature 36.5 C Pulse Rate 102 H 91 80 Respiratory Rate 20 Blood Pressure 145/74 H Pulse Oximetry 97 Oxygen Delivery 09/10/25 00:00 09/10/25 00:00 09/10/25 01:09 Temperature Pulse Rate 78 71 Respiratory Rate Blood Pressure Pulse Oximetry Oxygen Delivery Room Air 09/10/25 01:17 09/10/25 02:00 09/10/25 04:00 Temperature 36.4 C Pulse Rate 76 80 77 Respiratory Rate 20 Blood Pressure 131/65 Pulse Oximetry 100 Oxygen Delivery 09/10/25 04:00 09/10/25 04:00 09/10/25 06:00 Temperature Pulse Rate 75 72 Respiratory Rate Blood Pressure Pulse Oximetry Oxygen Delivery Room Air Intake/Output Intake/Output: Intake & Output 09/07/25 09/08/25 09/09/25 09/10/25 23:59 23:59 23:59 23:59 Intake Total 1271.5 4388.2 3639.9 113.1 Output Total 1775 1675 2850 500 Balance -503.5 2713.2 789.9 -386.9 Meds/Results Medications: Active Medications Generic Name Dose Route Start Last Admin Trade Name Freq PRN Reason Stop Dose Admin Albuterol/Ipratropium 3 ml 09/07/25 14:00 09/10/25 01:09 Ipratropium 0.5 Mg/Albuterol Sulfate 2.5 Mg (Base) Ampul.Neb 3 Ml INHALATION 3 ml Q6HRT FRANCIS Administration Amlodipine Besylate 10 mg 09/07/25 09:00 09/09/25 08:35 Amlodipine Besylate 10 Mg Tablet PO 10 mg DAILY FRANCIS Administration Aspirin 81 mg 09/07/25 09:00 09/09/25 08:36 Aspirin 81 Mg Enteric Tablet PO 81 mg QAM FRANCIS Administration Clopidogrel Bisulfate 75 mg 09/07/25 09:00 09/09/25 08:36 Clopidogrel Bisulfate 75 Mg Tablet PO 75 mg QAM FRANCIS Administration Dextrose 12.5 gm 09/07/25 07:51 Dextrose 50% 25 Gm/50 Ml Syringe IV PUSH PRN PRN Hypoglycemia Protocol Dicyclomine HCl 10 mg 09/10/25 07:24 Dicyclomine Hcl 10 Mg Capsule PO Q8H PRN pain Glucagon 1 mg 09/07/25 07:51 Glucagon For Inj 1 Mg Vial IM PRN PRN Hypoglycemia Protocol Glucose 15 gm 09/07/25 07:51 Glucose Oral Gel 15 Gm Of Glucse In 37.5 Gm Tube PO PRN PRN Hypoglycemia Protocol Heparin Sodium (Porcine) 7,000 units 09/07/25 10:15 Heparin Sodium 5,000 Units/Ml Vial IV PUSH PRN PRN aPTT less than 55 seconds Heparin Sodium (Porcine) 3,500 units 09/07/25 10:15 09/08/25 05:01 Heparin Sodium 5,000 Units/Ml Vial IV PUSH 3,500 units PRN PRN Administration aPTT 55 - 70 seconds Hydralazine HCl 10 mg 09/07/25 07:47 09/08/25 11:51 Hydralazine Hcl 20 Mg/Ml Vial IV PUSH 10 mg Q4H PRN Administration Blood Pressure - High Hydromorphone HCl 0.5 mg 09/08/25 10:30 09/10/25 05:23 Hydromorphone Hcl Inj (*Crx) 1 Mg/Ml Syr IV PUSH 0.5 mg Q3H PRN Administration Pain Rated 7-10 Lactated Ringer's 1,000 mls @ 100 mls/hr 09/07/25 09:15 09/09/25 22:39 Lr - Lactated Ringers Iv IV CONT 100 mls/hr .Q10H FRANCIS Administration Dextrose 1,000 mls @ 100 mls/hr 09/07/25 07:51 Dextrose 5% 1,000 Ml IVPB PRN PRN Hypoglycemia Protocol Heparin Sodium/Dextrose 25,000 units in 250 mls @ 17 mls/hr 09/07/25 10:10 09/10/25 05:18 Heparin Sodium/D5w 100 Units/Ml IV CONT 1,700 units/hr .[id number] FRANCIS 17 mls/hr Protocol Titration 1,700 UNITS/HR Ceftriaxone Sodium 1 gm/ 50 mls @ 100 mls/hr 09/10/25 08:00 Sodium Chloride IVPB Q24H [facility] Insulin Aspart 3 - 6 units 09/07/25 12:00 09/10/25 05:18 Insulin Aspart (*Bkc) 100 Units/Ml SUB-Q Not Given Q6HR [facility] Protocol Lisinopril 40 mg 09/07/25 09:00 09/09/25 08:35 Lisinopril 20 Mg Tablet PO 40 mg DAILY FRANCIS Administration Metoprolol Tartrate 50 mg 09/07/25 09:00 09/09/25 20:31 Metoprolol Tartrate 50 Mg Tab PO 50 mg Q12HR FRANCIS Administration Pantoprazole Sodium 40 mg 09/09/25 09:00 09/09/25 08:35 Pantoprazole 40 Mg Tablet PO 40 mg QAM FRANCIS Administration Radiology Results: ITS Impressions Chest/Abdomen/Pelvis CTA 09/07/25 06:24 IMPRESSION: 1. Complete collapse of left lung. 2. Small left pleural effusion with pleural thickening. 3. Acute interstitial pancreatitis. 4. Severe stenosis of celiac axis. 5. Stent in left common iliac artery with moderate intrastent stenosis. Abdomen Ultrasound 09/07/25 10:33 IMPRESSION: 1. Hepatomegaly, with steatosis. 2. Gallstones. Chest X-Ray 09/08/25 07:53 IMPRESSION: 1. No gross interval change from yesterday. Complete opacification of the left hemithorax. MRCP 09/09/25 13:31 IMPRESSION: 1. Findings above are suggestive of approximately 6 mm size stone in the distal common bile duct just before the ampulla. 2. Findings about the pancreas consistent with mild pancreatitis. No discrete pancreatic lesion or mass seen. 3. Hepatomegaly with fatty liver changes. 4. Other findings as above. Labs Labs: Laboratory Results - last 24 hr 09/09/25 09/09/25 09/09/25 09:00 11:54 17:06 WBC RBC Hgb Hct MCV MCH MCHC RDW Plt Count MPV APTT Sodium Potassium Chloride Carbon Dioxide Anion Gap BUN Creatinine Estim Creat Clear Calc Estimated GFR Glucose POC Capillary Glucose 149 H 129 H Calcium Total Bilirubin AST ALT Alkaline Phosphatase Troponin I 3.520 H* C-Reactive Protein Total Protein Albumin 09/09/25 09/10/25 09/10/25 17:59 00:20 04:25 WBC 20.2 H 17.2 H RBC 4.56 L 4.42 L Hgb 13.5 L 13.1 L Hct 42.1 41.7 L MCV 92.3 94.3 MCH 29.6 29.6 MCHC 32.1 31.4 L RDW 14.3 14.2 Plt Count 174 165 MPV 9.8 10.3 APTT 71.8 H Sodium 131 L 134 L Potassium 4.4 4.5 Chloride 98 97 L Carbon Dioxide 27 31 H Anion Gap 6 6 BUN 14 14 Creatinine 1.01 1.12 Estim Creat Clear Calc 82 75 Estimated GFR > 60 > 60 Glucose 123 H 146 H POC Capillary Glucose 155 H Calcium 9.2 9.3 Total Bilirubin 2.1 H 1.8 H AST 49 41 ALT 151 H 129 H Alkaline Phosphatase 144 H 143 H Troponin I C-Reactive Protein 36.5 H 36.3 H Total Protein 6.6 6.6 Albumin 3.3 L 3.2 L
[2025-09-10] MEDS: cefTRIAXone 1 GM in SODIUM CHLORIDE 0.9% IV 50 ML 100 ML IVPB (08:53)
[2025-09-10] MEDS: LACTATED RINGERS 1,000 ML 100 ML IV CONT ×2 (08:53→16:23)
[2025-09-10] MEDS: METOPROLOL TARTRATE 50 MG TAB PO ×2 (08:54→20:53)
[2025-09-10] MEDS: DICYCLOMINE HCL 10 MG CAPSULE PO ×2 (08:54→18:22)
[2025-09-10] MEDS: CLOPIDOGREL BISULFATE 75 MG TABLET PO (08:54)
[2025-09-10] MEDS: ASPIRIN 81 MG ENTERIC TABLET PO (08:54)
[2025-09-10] MEDS: PANTOPRAZOLE 40 MG TABLET PO (08:54)
--- NOTE | 2025-09-10 09:52 | PM.IMPN2 ---
Assessment and Plan Assessment and Plan (1) Pancreatitis: Qualifiers: Acute pancreatitis complication: no infection or necrosis Chronicity: acute Pancreatitis type: biliary Qualified Code(s): K85.10 - Biliary acute pancreatitis without necrosis or infection Code(s): K85.90 - Acute pancreatitis without necrosis or infection, unspecified Status: Acute Assessment and Plan: Patient presented with abdominal pain, nausea, vomiting -lipase levels was 10,643 -patient also had a concomitant ST-elevation ME -adequately fluid-resuscitated -triglyceride levels a 214 (normal levels of 150) -09/07/2025: RUQ ultrasound: Showed hepatomegaly with steatosis and gallstones, common bile duct 10 mm, no intrahepatic biliary ductal dilatation -alcohol level < 10, patient denies any alcohol abuse, states he drinks 1 [place] every couple of weeks -patient started on maintenance IV fluids - S/p Zosyn for cholangitis (09/07) - Started on ceftriaxone - MRCP findings below -pain control with Dilaudid -appreciate GI evaluation MRCP 1. Findings above are suggestive of approximately 6 mm size stone in the distal common bile duct just before the ampulla. 2. Findings about the pancreas consistent with mild pancreatitis. No discrete pancreatic lesion or mass seen. 3. Hepatomegaly with fatty liver changes. (2) Elevated liver enzymes: Code(s): R74.8 - Abnormal levels of other serum enzymes Status: Acute Assessment and Plan: Elevated liver enzymes could be related to pancreatitis, STEMI, decreased perfusion -RUQ ultrasound as above -hepatitis panel was negative -likely related to gallstone pancreatitis, cholangitis -LFTs and bilirubin improving, continue antibiotics as above for cholangitis (3) ST elevation ME (STEMI): Qualifiers: Involved coronary artery: other coronary artery Qualified Code(s): I21.29 - ST elevation (STEMI) myocardial infarction involving other sites Code(s): I21.3 - ST elevation (STEMI) myocardial infarction of unspecified site Status: Acute Assessment and Plan: Inferior ST-elevation ME on EKG, status post cardiac catheterization showed occluded branch of the RPL, moderate left main and LAD stenosis, systolic cardiomyopathy with severe hypokinesis of the inferior wall, medical management. -09/07: continue heparin infusion for 48 hours -patient started on aspirin, clopidogrel -continue lisinopril, amlodipine and metoprolol 05/2020: Echocardiogram: EF 20% (4) Acute kidney injury: Code(s): N17.9 - Acute kidney failure, unspecified Status: Acute Assessment and Plan: Acute kidney injury likely related to ST-elevation ME, - gently hydrate -continue to monitor urine output, renal function and electrolyte (5) Collapse of left lung: Code(s): J98.11 - Atelectasis Status: Acute Assessment and Plan: Collapse of the left lung, patient does have a history of non-small cell lung cancer on the left side. Collapse of left lung is chronic since 2020 her technical support manager and the patient. -patient currently on oxygen via 2 L nasal cannula -continue bronchodilator (6) Peripheral vascular disease: Code(s): I73.9 - Peripheral vascular disease, unspecified Status: Acute Assessment and Plan: Patient has a history of peripheral vascular disease with [employer] stent Patient also has severe stenosis of celiac axis, -consulted surgery, date on take care of celiac axis occlusions, if conditions worsens, patient may have to be transferred to higher level of care -lactic acid 1.6, -09/07/25: CTA chest abdomen and pelvis IMPRESSION: 1. Complete collapse of left lung. 2. Small left pleural effusion with pleural thickening. 3. Acute interstitial pancreatitis. 4. Severe stenosis of celiac axis. 5. Stent in left common iliac artery with moderate intrastent stenosis. (7) Atrial fibrillation: Code(s): I48.91 - Unspecified atrial fibrillation Status: Acute Assessment and Plan: History of atrial fibrillation, on Eliquis at home -S/P heparin infusion - Restarted Eliquis (8) COPD (chronic obstructive pulmonary disease): Qualifiers: COPD type: unspecified COPD Qualified Code(s): J44.9 - Chronic obstructive pulmonary disease, unspecified Code(s): J44.9 - Chronic obstructive pulmonary disease, unspecified Status: Acute Assessment and Plan: Continue bronchodilators (9) Coronary artery disease: Code(s): I25.10 - Atherosclerotic heart disease of [place] coronary artery without angina pectoris Status: Acute Assessment and Plan: History of coronary artery disease, follows with Dr. Gonzalez -cardiology following the pt (10) Diabetes: Code(s): E11.9 - Type 2 diabetes mellitus without complications Status: Acute Assessment and Plan: Sliding scale insulin Accu-Chek (11) Essential hypertension: Code(s): I10 - Essential (primary) hypertension Status: Acute Assessment and Plan: Patient hypertensive, continue p.r.n. hydralazine -continue amlodipine, metoprolol and lisinopril (12) Non-small cell lung cancer: Qualifiers: Laterality: unspecified laterality Qualified Code(s): C34.90 - Malignant neoplasm of unspecified part of unspecified bronchus or lung Code(s): C34.90 - Malignant neoplasm of unspecified part of unspecified bronchus or lung Status: Acute Assessment and Plan: History of non-small cell lung cancer on the left side, with chronic left lung collapse due to radiation -follows pulmonology at [facility] Plan DVT prophylaxis: Eliquis 5 mg p.o. b.i.d. Stress ulcer prophylaxis: Protonix Nutrition: NPO for now Code Status: Full code Subjective Date/time seen: 09/10/25 09:52 Interval history: Discussed with the GI, currently patient does not need surgery consult or ERCP. Patient antibiotic has been deescalated from Zosyn to ceftriaxone. Currently tolerating diet. GI added Bentyl. As per Cardiology recommendation heparin stopped and started Eliquis Review of Systems Review of Systems: All systems reviewed & are unremarkable except as noted in HPI and below Exam Narrative: General: Pleasant gentleman, in no acute distress HEENT:? Pupils equal and reactive, sclera icteric, moist oral mucosa Neck:? Supple Respiratory:? Significantly decreased breath sounds on the left, right side is clear to auscultation, decreased at bases, no wheeze Cardiac:? S1-S2 normal, regular rate and rhythm Abdomen:? Soft, nondistended, tenderness in the epigastrium and periumbilical area, hypoactive bowel sounds Extremities:? No edema, palpable pedal pulses, right radial catheterization site with no ecchymosis or hematoma. Palpable radial pulse on the right Neuro:? Patient is awake, alert, oriented x3, nonfocal Skin:? No skin lesions noted Psych:? Normal mentation and affect Objective Data Vital Signs Vital Signs: Vital Signs - 24 hr 09/09/25 10:00 09/09/25 12:00 09/09/25 12:00 Temperature 99.2 F Pulse Rate 78 84 Respiratory Rate 20 Blood Pressure 134/67 Pulse Oximetry 91 Oxygen Delivery Room Air Oxygen Flow Rate 09/09/25 12:00 09/09/25 13:37 09/09/25 13:42 Temperature Pulse Rate 84 86 84 Respiratory Rate 20 20 Blood Pressure Pulse Oximetry Oxygen Delivery Oxygen Flow Rate 09/09/25 14:00 09/09/25 15:57 09/09/25 16:00 Temperature 98.9 F Pulse Rate 89 89 Respiratory Rate 20 Blood Pressure 148/62 H Pulse Oximetry 91 Oxygen Delivery Room Air Oxygen Flow Rate 09/09/25 16:00 09/09/25 18:00 09/09/25 20:00 Temperature 97.6 F Pulse Rate 79 89 90 Respiratory Rate 20 Blood Pressure 130/54 L Pulse Oximetry 91 Oxygen Delivery Oxygen Flow Rate 09/09/25 20:00 09/09/25 20:00 09/09/25 20:18 Temperature Pulse Rate 88 Respiratory Rate Blood Pressure Pulse Oximetry 93 Oxygen Delivery Room Air Room Air Oxygen Flow Rate 09/09/25 20:18 09/09/25 20:23 09/09/25 20:31 Temperature Pulse Rate 91 85 102 H Respiratory Rate 16 16 Blood Pressure Pulse Oximetry Oxygen Delivery Oxygen Flow Rate 09/09/25 22:00 09/09/25 23:40 09/10/25 00:00 Temperature 97.7 F Pulse Rate 91 80 Respiratory Rate 20 Blood Pressure 145/74 H Pulse Oximetry 97 Oxygen Delivery Room Air Oxygen Flow Rate 09/10/25 00:00 09/10/25 01:09 09/10/25 01:17 Temperature Pulse Rate 78 71 76 Respiratory Rate Blood Pressure Pulse Oximetry Oxygen Delivery Oxygen Flow Rate 09/10/25 02:00 09/10/25 04:00 09/10/25 04:00 Temperature 97.6 F Pulse Rate 80 77 Respiratory Rate 20 Blood Pressure 131/65 Pulse Oximetry 100 Oxygen Delivery Room Air Oxygen Flow Rate 09/10/25 04:00 09/10/25 06:00 09/10/25 08:00 Temperature Pulse Rate 75 72 80 Respiratory Rate 20 Blood Pressure 148/75 H Pulse Oximetry 99 Oxygen Delivery Oxygen Flow Rate 09/10/25 08:42 09/10/25 08:42 09/10/25 08:54 Temperature Pulse Rate 88 88 87 Respiratory Rate 14 16 Blood Pressure Pulse Oximetry 98 Oxygen Delivery Nasal Cannula Oxygen Flow Rate 3 Intake/Output Intake/Output: Intake & Output 09/07/25 09/08/25 09/09/25 09/10/25 23:59 23:59 23:59 23:59 Intake Total 1271.5 4388.2 3639.9 1113.1 Output Total 1775 1675 2850 500 Balance -503.5 2713.2 789.9 613.1 Meds/Results Medications: Active Medications Generic Name Dose Route Start Last Admin Trade Name Freq PRN Reason Stop Dose Admin Albuterol/Ipratropium 3 ml 09/07/25 14:00 09/10/25 08:38 Ipratropium 0.5 Mg/Albuterol Sulfate 2.5 Mg (Base) Ampul.Neb 3 Ml INHALATION 3 ml Q6HRT FRANCIS Administration Amlodipine Besylate 10 mg 09/07/25 09:00 09/10/25 08:54 Amlodipine Besylate 10 Mg Tablet PO 10 mg DAILY FRANCIS Administration Apixaban 5 mg 09/10/25 21:00 Apixaban 5 Mg Tablet PO Q12HR FRANCIS Aspirin 81 mg 09/07/25 09:00 09/10/25 08:54 Aspirin 81 Mg Enteric Tablet PO 81 mg QAM FRANCIS Administration Clopidogrel Bisulfate 75 mg 09/07/25 09:00 09/10/25 08:54 Clopidogrel Bisulfate 75 Mg Tablet PO 75 mg QAM FRANCIS Administration Dextrose 12.5 gm 09/07/25 07:51 Dextrose 50% 25 Gm/50 Ml Syringe IV PUSH PRN PRN Hypoglycemia Protocol Dicyclomine HCl 10 mg 09/10/25 07:24 09/10/25 08:54 Dicyclomine Hcl 10 Mg Capsule PO 10 mg Q8H PRN Administration pain Glucagon 1 mg 09/07/25 07:51 Glucagon For Inj 1 Mg Vial IM PRN PRN Hypoglycemia Protocol Glucose 15 gm 09/07/25 07:51 Glucose Oral Gel 15 Gm Of Glucse In 37.5 Gm Tube PO PRN PRN Hypoglycemia Protocol Hydralazine HCl 10 mg 09/07/25 07:47 09/08/25 11:51 Hydralazine Hcl 20 Mg/Ml Vial IV PUSH 10 mg Q4H PRN Administration Blood Pressure - High Hydromorphone HCl 0.5 mg 09/08/25 10:30 09/10/25 05:23 Hydromorphone Hcl Inj (*Crx) 1 Mg/Ml Syr IV PUSH 0.5 mg Q3H PRN Administration Pain Rated 7-10 Lactated Ringer's 1,000 mls @ 100 mls/hr 09/07/25 09:15 09/10/25 08:53 Lr - Lactated Ringers Iv IV CONT 100 mls/hr .Q10H FRANCIS Administration Dextrose 1,000 mls @ 100 mls/hr 09/07/25 07:51 Dextrose 5% 1,000 Ml IVPB PRN PRN Hypoglycemia Protocol Ceftriaxone Sodium 1 gm/ 50 mls @ 100 mls/hr 09/10/25 08:00 09/10/25 08:53 Sodium Chloride IVPB 100 mls/hr Q24H FRANCIS Administration Insulin Aspart 3 - 6 units 09/07/25 12:00 09/10/25 05:18 Insulin Aspart (*Bkc) 100 Units/Ml SUB-Q Not Given Q6HR FRANCIS Protocol Lisinopril 40 mg 09/07/25 09:00 09/10/25 08:54 Lisinopril 20 Mg Tablet PO 40 mg DAILY FRANCIS Administration Metoprolol Tartrate 50 mg 09/07/25 09:00 09/10/25 08:54 Metoprolol Tartrate 50 Mg Tab PO 50 mg Q12HR FRANCIS Administration Pantoprazole Sodium 40 mg 09/09/25 09:00 09/10/25 08:54 Pantoprazole 40 Mg Tablet PO 40 mg QAM FRANCIS Administration Radiology Results: ITS Impressions Chest/Abdomen/Pelvis CTA 09/07/25 06:24 IMPRESSION: 1. Complete collapse of left lung. 2. Small left pleural effusion with pleural thickening. 3. Acute interstitial pancreatitis. 4. Severe stenosis of celiac axis. 5. Stent in left common iliac artery with moderate intrastent stenosis. Abdomen Ultrasound 09/07/25 10:33 IMPRESSION: 1. Hepatomegaly, with steatosis. 2. Gallstones. Chest X-Ray 09/08/25 07:53 IMPRESSION: 1. No gross interval change from yesterday. Complete opacification of the left hemithorax. MRCP 09/09/25 13:31 IMPRESSION: 1. Findings above are suggestive of approximately 6 mm size stone in the distal common bile duct just before the ampulla. 2. Findings about the pancreas consistent with mild pancreatitis. No discrete pancreatic lesion or mass seen. 3. Hepatomegaly with fatty liver changes. 4. Other findings as above. Labs Labs: Laboratory Results - last 24 hr 09/09/25 09/09/2509/09/25 11:54 17:06 17:59 WBC 20.2 H RBC 4.56 L Hgb 13.5 L Hct 42.1 MCV 92.3 MCH 29.6 MCHC 32.1 RDW 14.3 Plt Count 174 MPV 9.8 APTT Sodium 131 L Potassium 4.4 Chloride 98 Carbon Dioxide 27 Anion Gap 6 BUN 14 Creatinine 1.01 Estim Creat Clear Calc 82 Estimated GFR > 60 Glucose 123 H POC Capillary Glucose 149 H 129 H Calcium 9.2 Total Bilirubin 2.1 H AST 49 ALT 151 H Alkaline Phosphatase 144 H C-Reactive Protein 36.5 H Total Protein 6.6 Albumin 3.3 L 09/10/25 09/10/25 00:20 04:25 WBC 17.2 H RBC 4.42 L Hgb 13.1 L Hct 41.7 L MCV 94.3 MCH 29.6 MCHC 31.4 L RDW 14.2 Plt Count 165 MPV 10.3 APTT 71.8 H Sodium 134 L Potassium 4.5 Chloride 97 L Carbon Dioxide 31 H Anion Gap 6 BUN 14 Creatinine 1.12 Estim Creat Clear Calc 75 Estimated GFR > 60 Glucose 146 H POC Capillary Glucose 155 H Calcium 9.3 Total Bilirubin 1.8 H AST 41 ALT 129 H Alkaline Phosphatase 143 H C-Reactive Protein 36.3 H Total Protein 6.6 Albumin 3.2 L Quality VTE Prophylaxis VTE prophylaxis: pharmacologic ordered Hospitalist MIPS Advance Care Plan I have confirmed that the patient's Advanced Care Plan is present, code status is documented, or surrogate decision maker is listed in patient medical record.: Yes Medication Reconciliation I have utilized all available resources to obtain, update and review the patients current medications (includes all prescriptions, OTC, herbals, cannabis, and nutritional supplements).: Yes
[2025-09-10] MEDS: APIXABAN 5 MG TABLET PO ×2 (11:55→20:54)
--- NOTE | 2025-09-10 13:56 | PCNFU ---
Nutrition Follow-Up Complete: Pt current nutrition is Easy to chew, regular diet. Intakes 25-50%. Nutrition recommendation: No new recommendations. Continue current nutrition care plan and orders. Last recorded weight is 104.9 kg. Bowel Motility: Last BM 09/06 Labs Reviewed:Hgb 13.1, Hct 41.7, Alb 3.2, Na 134, Glu 146 Meds Noted: Protonix, Heparin Skin: No skin issues Additional Notes: Pt had GI consult and no ERCP is needed. Pt on regular diet. Intakes improving. Continue to follow every 5 days
[2025-09-11] VITALS (17 sets, daily range): BP systolic 124–157; BP diastolic 66–82; PULSE 73–95; RESP 16–28; TEMP 36.6–37.1; O2SAT 90–98
[2025-09-11] MEDS: DICYCLOMINE HCL 10 MG CAPSULE PO ×2 (04:05→11:59)
[2025-09-11] MEDS: LACTATED RINGERS 1,000 ML 100 ML IV CONT (04:07)
--- NOTE | 2025-09-11 04:19 | PCRCNOTE ---
Patient did not want to be awakened for 0200 updraft treatment. Treatment to resume @ 0800.
[2025-09-11 04:28] LABS: Hematocrit 40.5 % (42.0-52.0); Hemoglobin 12.9 g/dL (14.0-18.0); Mean Corpuscular HGB Conc 31.9 g/dl (32-36); Mean Corpuscular Hemoglobin 29.5 pg (26-34); Mean Corpuscular Volume 92.5 fl (80-100); Platelet Count Result 172 k/mm3 (150-375); Red Blood Count 4.38 M/mm3 (4.6-6.20); White Blood Count 12.5 K/mm3 (4.5-10.0)
[2025-09-11 04:46] LABS: Alanine Aminotransferase 96 U/L (6-50); Albumin Level 3.3 g/dL (3.5-5.1); Alkaline Phosphatase 139 U/L (38-126); Anion Gap 6 mmol/L (4-12); Aspartate Amino Transferase 42 U/L (17-59); Bilirubin,Total 1.3 mg/dL (0.2-1.3); Blood Urea Nitrogen 11 mg/dL (9-20); Calcium 9.3 mg/dL (8.4-10.2); Carbon Dioxide 28 mmol/L (22-30); Chloride 100 mmol/L (98-107); Estimated CRCL calculation 77 ml/min; Estimated Glomerular Filt Rate > 60; Glucose 153 mg/dL (65-110); Lipase 639 U/L (23-300); Potassium 3.9 mmol/L (3.4-5.0); Sodium 134 mmol/L (137-145); Total Protein 6.7 g/dL (6.3-8.2)
[2025-09-11] MEDS: IPRATROPIUM 0.5 MG/ALBUTEROL SULFATE 2.5 MG (BASE) AMPUL.NEB 3 ML INHALATION ×3 (08:00→20:17)
[2025-09-11] MEDS: CLOPIDOGREL BISULFATE 75 MG TABLET PO (09:31)
[2025-09-11] MEDS: APIXABAN 5 MG TABLET PO ×2 (09:31→20:16)
[2025-09-11] MEDS: METOPROLOL TARTRATE 50 MG TAB PO ×2 (09:31→20:28)
[2025-09-11] MEDS: PANTOPRAZOLE 40 MG TABLET PO (09:32)
[2025-09-11] MEDS: ASPIRIN 81 MG ENTERIC TABLET PO (09:32)
[2025-09-11] MEDS: cefTRIAXone 1 GM in SODIUM CHLORIDE 0.9% IV 50 ML 100 ML IVPB (09:32)
[2025-09-11] MEDS: DOCUSATE SODIUM 100 MG CAPSULE PO (11:55)
--- NOTE | 2025-09-11 15:37 | P.PNIM_ITS ---
Assessment and Plan Assessment and Plan (1) Pancreatitis: Qualifiers: Chronicity: acute Pancreatitis type: biliary Acute pancreatitis complication: no infection or necrosis Qualified Code(s): K85.10 - Biliary acute pancreatitis without necrosis or infection Code(s): K85.90 - Acute pancreatitis without necrosis or infection, unspecified Status: Acute Assessment and Plan: Patient presented with abdominal pain, nausea, vomiting -lipase levels was 10,643 -patient also had a concomitant ST-elevation OK -adequately fluid-resuscitated -triglyceride levels a 214 (normal levels of 150) -09/07/2025: RUQ ultrasound: Showed hepatomegaly with steatosis and gallstones, common bile duct 10 mm, no intrahepatic biliary ductal dilatation -alcohol level < 10, patient denies any alcohol abuse, states he drinks 1 [place] every couple of weeks -patient started on maintenance IV fluids - S/p Zosyn for cholangitis (09/07) - Started on ceftriaxone - MRCP findings with approximately 6 mm size stone in the distal common bile duct just before the ampulla. -pain control with Dilaudid -appreciate GI evaluation LFTs improving Once cardiac clearance will eventually need cholecystectomy (2) Elevated liver enzymes: Code(s): R74.8 - Abnormal levels of other serum enzymes Status: Acute Assessment and Plan: Elevated liver enzymes could be related to pancreatitis, STEMI, decreased perfusion -RUQ ultrasound as above -hepatitis panel was negative -likely related to gallstone pancreatitis, cholangitis -LFTs and bilirubin improving, continue antibiotics as above for cholangitis (3) ST elevation OK (STEMI): Qualifiers: Involved coronary artery: other coronary artery Qualified Code(s): I21.29 - ST elevation (STEMI) myocardial infarction involving other sites Code(s): I21.3 - ST elevation (STEMI) myocardial infarction of unspecified site Status: Acute Assessment and Plan: Inferior ST-elevation OK on EKG, status post cardiac catheterization showed occluded branch of the RPL, moderate left main and LAD stenosis, systolic cardiomyopathy with severe hypokinesis of the inferior wall, medical management. -09/07: continue heparin infusion for 48 hours -patient started on aspirin, clopidogrel. Eliquis has been started. Will stop aspirin -continue lisinopril, amlodipine and metoprolol Echo with EF 40-45% akinesis of inferior wall and hypokinesis of the lateral wall. Grade 1 diastolic dysfunction 05/2020: Echocardiogram: EF 20% Evaluation of LM and LAD disease and revascularize if significant as outpatient basis. (4) Acute kidney injury: Code(s): N17.9 - Acute kidney failure, unspecified Status: Acute Assessment and Plan: Acute kidney injury likely related to ST-elevation OK, admission creatinine of 1.49 - gently hydrate -continue to monitor urine output, renal function and electrolyte NICOLLE resolved (5) Collapse of left lung: Code(s): J98.11 - Atelectasis Status: Acute Assessment and Plan: Collapse of the left lung, patient does have a history of non-small cell lung cancer on the left side. Collapse of left lung is chronic since 2020 her child adolescent care and the patient. -patient currently on room air -continue bronchodilator (6) Peripheral vascular disease: Code(s): I73.9 - Peripheral vascular disease, unspecified Status: Acute Assessment and Plan: Patient has a history of peripheral vascular disease with [employer] stent Patient also has severe stenosis of celiac axis, -consulted surgery, date on take care of celiac axis occlusions, if conditions worsens, patient may have to be transferred to higher level of care -lactic acid 1.6, -09/07/25: CTA chest abdomen and pelvis IMPRESSION: 1. Complete collapse of left lung. 2. Small left pleural effusion with pleural thickening. 3. Acute interstitial pancreatitis. 4. Severe stenosis of celiac axis. 5. Stent in left common iliac artery with moderate intrastent stenosis. (7) Atrial fibrillation: Code(s): I48.91 - Unspecified atrial fibrillation Status: Acute Assessment and Plan: History of atrial fibrillation, on Eliquis at home -S/P heparin infusion - Restarted Eliquis (8) COPD (chronic obstructive pulmonary disease): Qualifiers: COPD type: unspecified COPD Qualified Code(s): J44.9 - Chronic obstructive pulmonary disease, unspecified Code(s): J44.9 - Chronic obstructive pulmonary disease, unspecified Status: Acute Assessment and Plan: Continue bronchodilators (9) Coronary artery disease: Code(s): I25.10 - Atherosclerotic heart disease of [place] coronary artery without angina pectoris Status: Acute Assessment and Plan: History of coronary artery disease, follows with Dr. Gonzalez -cardiology following the pt (10) Diabetes: Code(s): E11.9 - Type 2 diabetes mellitus without complications Status: Acute Assessment and Plan: Sliding scale insulin Accu-Chek (11) Essential hypertension: Code(s): I10 - Essential (primary) hypertension Status: Acute Assessment and Plan: Patient hypertensive, continue p.r.n. hydralazine -continue amlodipine, metoprolol and lisinopril (12) Non-small cell lung cancer: Qualifiers: Laterality: unspecified laterality Qualified Code(s): C34.90 - Malignant neoplasm of unspecified part of unspecified bronchus or lung Code(s): C34.90 - Malignant neoplasm of unspecified part of unspecified bronchus or lung Status: Acute Assessment and Plan: History of non-small cell lung cancer on the left side, with chronic left lung collapse due to radiation -follows pulmonology at [facility] Plan DVT prophylaxis: Eliquis 5 mg p.o. b.i.d. Stress ulcer prophylaxis: Protonix Nutrition: NPO for now Constipation add MiraLax Code Status: Full code Disposition anticipate DC in a.m. if labs improving. Plan to DC on Plavix and apixaban. He had follow-up with for general surgery for cholecystectomy eventually. Subjective Date/time seen: 09/11/25 15:37 Interval history: No overnight events. No nausea vomiting no abdominal pain ambulating in the h all with. No chest pain. No shortness of breath. Tolerating diet. Review of Systems Review of Systems: All systems reviewed & are unremarkable except as noted in HPI and below Exam Narrative: General: Pleasant gentleman, in no acute distress HEENT:? Pupils equal and reactive, sclera icteric, moist oral mucosa Neck:? Supple Respiratory:? Diminished breath sounds bilaterally, no wheeze no respiratory distress Cardiac:? S1-S2 normal, regular rate and rhythm Abdomen:? Soft, nondistended, nontender, hypoactive bowel sounds Extremities:? No edema, Neuro:? Patient is awake, alert, oriented x3, nonfocal Skin:? No skin lesions noted Psych:? Normal mentation and affect Objective Data Vital Signs Vital Signs: Vital Signs - 24 hr 09/10/25 15:42 09/10/25 16:00 09/10/25 18:46 Temperature 98.2 F Pulse Rate 81 109 H 89 Respiratory Rate 20 Blood Pressure 150/81 H Pulse Oximetry 93 Oxygen Delivery Oxygen Flow Rate 09/10/25 20:00 09/10/25 20:00 09/10/25 20:00 Temperature 97.9 F Pulse Rate 94 99 Respiratory Rate 16 Blood Pressure 162/70 H Pulse Oximetry 95 Oxygen Delivery Room Air Oxygen Flow Rate 09/10/25 20:53 09/10/25 20:57 09/10/25 21:01 Temperature Pulse Rate 95 87 Respiratory Rate 18 Blood Pressure Pulse Oximetry 95 Oxygen Delivery Room Air Oxygen Flow Rate 09/10/25 21:06 09/10/25 23:42 09/11/25 00:00 Temperature 98.4 F Pulse Rate 85 81 87 Respiratory Rate 18 16 Blood Pressure 129/85 Pulse Oximetry 97 Oxygen Delivery Oxygen Flow Rate 09/11/25 03:24 09/11/25 04:00 09/11/25 08:00 Temperature 98.0 F Pulse Rate 80 81 Respiratory Rate 16 Blood Pressure 147/69 H Pulse Oximetry 90 97 Oxygen Delivery Nasal Cannula Oxygen Flow Rate 2 09/11/25 08:00 09/11/25 08:00 09/11/25 08:00 Temperature 97.8 F Pulse Rate 78 82 73 Respiratory Rate 18 28 H Blood Pressure 157/82 H Pulse Oximetry 98 Oxygen Delivery Oxygen Flow Rate 09/11/25 08:10 09/11/25 08:46 09/11/25 09:31 Temperature Pulse Rate 78 90 Respiratory Rate 18 Blood Pressure Pulse Oximetry 91 Oxygen Delivery Room Air Oxygen Flow Rate 09/11/25 12:00 09/11/25 14:11 09/11/25 14:19 Temperature Pulse Rate 82 79 82 Respiratory Rate 18 18 Blood Pressure Pulse Oximetry Oxygen Delivery Oxygen Flow Rate Intake/Output Intake/Output: Intake & Output 09/08/25 09/09/25 09/10/25 09/11/25 23:59 23:59 23:59 23:59 Intake Total 4388.2 3639.9 2723.0 1480 Output Total 1675 2850 2850 575 Balance 2713.2 789.9 -127.0 905 Meds/Results Medications: Active Medications Generic Name Dose Route Start Last Admin Trade Name Freq PRN Reason Stop Dose Admin Albuterol/Ipratropium 3 ml 09/07/25 14:00 09/11/25 14:11 Ipratropium 0.5 Mg/Albuterol Sulfate 2.5 Mg (Base) Ampul.Neb 3 Ml INHALATION 3 ml Q6HRT FRANCIS Administration Amlodipine Besylate 10 mg 09/07/25 09:00 09/11/25 09:32 Amlodipine Besylate 10 Mg Tablet PO 10 mg DAILY FRANCIS Administration Apixaban 5 mg 09/10/25 10:15 09/11/25 09:31 Apixaban 5 Mg Tablet PO 5 mg Q12HR FRANCIS Administration Aspirin 81 mg 09/11/25 09:00 09/11/25 09:32 Aspirin 81 Mg Enteric Tablet PO 09/13/25 23:59 81 mg QAM FRANCIS Administration Clopidogrel Bisulfate 75 mg 09/07/25 09:00 09/11/25 09:31 Clopidogrel Bisulfate 75 Mg Tablet PO 75 mg QAM FRANCIS Administration Dextrose 12.5 gm 09/07/25 07:51 Dextrose 50% 25 Gm/50 Ml Syringe IV PUSH PRN PRN Hypoglycemia Protocol Dicyclomine HCl 10 mg 09/10/25 07:24 09/11/25 11:59 Dicyclomine Hcl 10 Mg Capsule PO 10 mg Q8H PRN Administration pain Docusate Sodium 100 mg 09/11/25 21:00 Docusate Sodium 100 Mg Capsule PO Q12HR ON LICENSE OF [facility] Glucagon 1 mg 09/07/25 07:51 Glucagon For Inj 1 Mg Vial IM PRN PRN Hypoglycemia Protocol Glucose 15 gm 09/07/25 07:51 Glucose Oral Gel 15 Gm Of Glucse In 37.5 Gm Tube PO PRN PRN Hypoglycemia Protocol Hydralazine HCl 10 mg 09/07/25 07:47 09/08/25 11:51 Hydralazine Hcl 20 Mg/Ml Vial IV PUSH 10 mg Q4H PRN Administration Blood Pressure - High Hydromorphone HCl 0.5 mg 09/08/25 10:30 09/10/25 05:23 Hydromorphone Hcl Inj (*Crx) 1 Mg/Ml Syr IV PUSH 0.5 mg Q3H PRN Administration Pain Rated 7-10 Dextrose 1,000 mls @ 100 mls/hr 09/07/25 07:51 Dextrose 5% 1,000 Ml IVPB PRN PRN Hypoglycemia Protocol Ceftriaxone Sodium 1 gm/ 50 mls @ 100 mls/hr 09/10/25 08:00 09/11/25 09:32 Sodium Chloride IVPB 100 mls/hr Q24H FRANCIS Administration Insulin Aspart 3 - 6 units 09/07/25 12:00 09/11/25 11:53 Insulin Aspart (*Bkc) 100 Units/Ml SUB-Q Not Given Q6HR ON LICENSE OF [facility] Protocol Lisinopril 40 mg 09/07/25 09:00 09/11/25 09:32 Lisinopril 20 Mg Tablet PO 40 mg DAILY FRANCIS Administration Metoprolol Tartrate 50 mg 09/07/25 09:00 09/11/25 09:31 Metoprolol Tartrate 50 Mg Tab PO 50 mg Q12HR FRANCIS Administration Pantoprazole Sodium 40 mg 09/09/25 09:00 09/11/25 09:32 Pantoprazole 40 Mg Tablet PO 40 mg QAM FRANCIS Administration Polyethylene Glycol 17 gm 09/11/25 11:35 09/11/25 11:55 Polyethylene Glycol 3350 17 Gm Powd.Pack PO 17 gm QAM FRANCIS Administration Radiology Results: ITS Impressions Chest/Abdomen/Pelvis CTA 09/07/25 06:24 IMPRESSION: 1. Complete collapse of left lung. 2. Small left pleural effusion with pleural thickening. 3. Acute interstitial pancreatitis. 4. Severe stenosis of celiac axis. 5. Stent in left common iliac artery with moderate intrastent stenosis. Abdomen Ultrasound 09/07/25 10:33 IMPRESSION: 1. Hepatomegaly, with steatosis. 2. Gallstones. Chest X-Ray 09/08/25 07:53 IMPRESSION: 1. No gross interval change from yesterday. Complete opacification of the left hemithorax. MRCP 09/09/25 13:31 IMPRESSION: 1. Findings above are suggestive of approximately 6 mm size stone in the distal common bile duct just before the ampulla. 2. Findings about the pancreas consistent with mild pancreatitis. No discrete pancreatic lesion or mass seen. 3. Hepatomegaly with fatty liver changes. 4. Other findings as above. Labs Labs: Laboratory Results - last 24 hr 09/10/25 09/10/25 09/11/25 17:29 19:51 04:19 WBC 12.5 H RBC 4.38 L Hgb 12.9 L Hct 40.5 L MCV 92.5 MCH 29.5 MCHC 31.9 L RDW 14.3 Plt Count 172 MPV 10.2 Sodium 134 L Potassium 3.9 Chloride 100 Carbon Dioxide 28 Anion Gap 6 BUN 11 Creatinine 0.95 Estim Creat Clear Calc 77 Estimated GFR > 60 Glucose 153 H POC Capillary Glucose 140 H 169 H Calcium 9.3 Total Bilirubin 1.3 AST 42 ALT 96 H Alkaline Phosphatase 139 H Total Protein 6.7 Albumin 3.3 L Lipase 639 H 09/11/25 09/11/25 07:25 11:40 WBC RBC Hgb Hct MCV MCH MCHC RDW Plt Count MPV Sodium Potassium Chloride Carbon Dioxide Anion Gap BUN Creatinine Estim Creat Clear Calc Estimated GFR Glucose POC Capillary Glucose 147 H 184 H Calcium Total Bilirubin AST ALT Alkaline Phosphatase Total Protein Albumin Lipase Quality VTE Prophylaxis VTE prophylaxis: pharmacologic ordered [place] [facility] [place] I have confirmed that the patient's Advanced Care Plan is present, code status is documented, or surrogate decision maker is listed in patient medical record.: Yes Medication Reconciliation I have utilized all available resources to obtain, update and review the patients current medications (includes all prescriptions, OTC, herbals, cannabis, and nutritional supplements).: Yes
--- NOTE | 2025-09-11 16:05 | P.PNGI_ITS ---
Progress Note: A&P Assessment and Plan (1) Gallstone pancreatitis: Code(s): K85.10 - Biliary acute pancreatitis without necrosis or infection Status: Acute Assessment and Plan: clinically better, WBC downtrending, he has been on antibiotics tolerating diet and pain almost gone noted 6 mm in bile duct but ERCP however in setting of recent STEMI with use of plavix and eliquis ERCP will be quite risky. Since bilirubin has normalized and he is doing clinically better we will prefer to perform ERCP in outpatient setting once we can hold safely blood thinner for 1-2 days, he also will need to see surgery as outpatient because presentation with GS pancreatitis (2) Choledocholithiasis: Code(s): K80.50 - Calculus of bile duct without cholangitis or cholecystitis without obstruction Status: Acute Assessment and Plan: no cholangitis, liver enzymes coming down will need ercp but will reevaluate as outpatient and decide best timing to prevent complications (3) Elevated LFTs: Code(s): R79.89 - Other specified abnormal findings of blood chemistry Status: Acute (4) ST elevation myocardial infarction (STEMI) of inferior wall: Code(s): I21.19 - ST elevation (STEMI) myocardial infarction involving other coronary artery of inferior wall Status: Acute (5) Chronic systolic heart failure: Code(s): I50.22 - Chronic systolic (congestive) heart failure Status: Acute (6) Coronary artery disease: Code(s): I25.10 - Atherosclerotic heart disease of [place] coronary artery without angina pectoris Status: Acute (7) Atrial fibrillation: Code(s): I48.91 - Unspecified atrial fibrillation Status: Acute (8) Elevated WBCs: Code(s): D72.829 - Elevated white blood cell count, unspecified Status: Acute Subjective Date/time seen: 09/11/25 16:05 Interval history: overall better, only bloating and throbbing discomfort but has improved since admission he has been tolerating diet also had BM today Review of Systems Review of Systems: All systems reviewed & are unremarkable except as noted in HPI and below Exam Narrative: General: Pleasant gentleman, in no acute distress HEENT:? Pupils equal and reactive, sclera icteric, moist oral mucosa Neck:? Supple Respiratory:? Diminished breath sounds bilaterally, no wheeze no respiratory distress Cardiac:? S1-S2 normal, regular rate and rhythm Abdomen:? Soft, nondistended, nontender, hypoactive bowel sounds Extremities:? No edema, Neuro:? Patient is awake, alert, oriented x3, nonfocal Skin:? No skin lesions noted Psych:? Normal mentation and affect Objective Data Vital Signs Vital Signs: Vital Signs - 24 hr 09/10/25 18:46 09/10/25 20:00 09/10/25 20:00 Temperature 97.9 F Pulse Rate 89 94 Respiratory Rate 16 Blood Pressure 162/70 H Pulse Oximetry 95 Oxygen Delivery Room Air Oxygen Flow Rate 09/10/25 20:00 09/10/25 20:53 09/10/25 20:57 Temperature Pulse Rate 99 95 87 Respiratory Rate 18 Blood Pressure Pulse Oximetry Oxygen Delivery Oxygen Flow Rate 09/10/25 21:01 09/10/25 21:06 09/10/25 23:42 Temperature 98.4 F Pulse Rate 85 81 Respiratory Rate 18 16 Blood Pressure 129/85 Pulse Oximetry 95 97 Oxygen Delivery Room Air Oxygen Flow Rate 09/11/25 00:00 09/11/25 03:24 09/11/25 04:00 Temperature 98.0 F Pulse Rate 87 80 81 Respiratory Rate 16 Blood Pressure 147/69 H Pulse Oximetry 90 Oxygen Delivery Oxygen Flow Rate 09/11/25 08:00 09/11/25 08:00 09/11/25 08:00 Temperature 97.8 F Pulse Rate 78 82 Respiratory Rate 18 28 H Blood Pressure 157/82 H Pulse Oximetry 97 98 Oxygen Delivery Nasal Cannula Oxygen Flow Rate 2 09/11/25 08:00 09/11/25 08:10 09/11/25 08:46 Temperature Pulse Rate 73 78 Respiratory Rate 18 Blood Pressure Pulse Oximetry 91 Oxygen Delivery Room Air Oxygen Flow Rate 09/11/25 09:31 09/11/25 12:00 09/11/25 14:11 Temperature Pulse Rate 90 82 79 Respiratory Rate 18 Blood Pressure Pulse Oximetry Oxygen Delivery Oxygen Flow Rate 09/11/25 14:19 Temperature Pulse Rate 82 Respiratory Rate 18 Blood Pressure Pulse Oximetry Oxygen Delivery Oxygen Flow Rate Intake/Output Intake/Output: Intake & Output 09/08/25 09/09/25 09/10/25 09/11/25 23:59 23:59 23:59 23:59 Intake Total 4388.2 3639.9 2723.0 1480 Output Total 1675 2850 2850 575 Balance 2713.2 789.9 -127.0 905 Meds/Results Medications: Active Medications Generic Name Dose Route Start Last Admin Trade Name Freq PRN Reason Stop Dose Admin Albuterol/Ipratropium 3 ml 09/07/25 14:00 09/11/25 14:11 Ipratropium 0.5 Mg/Albuterol Sulfate 2.5 Mg (Base) Ampul.Neb 3 Ml INHALATION 3 ml Q6HRT FRANCIS Administration Amlodipine Besylate 10 mg 09/07/25 09:00 09/11/25 09:32 Amlodipine Besylate 10 Mg Tablet PO 10 mg DAILY FRANCIS Administration Apixaban 5 mg 09/10/25 10:15 09/11/25 09:31 Apixaban 5 Mg Tablet PO 5 mg Q12HR FRANCIS Administration Aspirin 81 mg 09/11/25 09:00 09/11/25 09:32 Aspirin 81 Mg Enteric Tablet PO 09/13/25 23:59 81 mg QAM FRANCIS Administration Clopidogrel Bisulfate 75 mg 09/07/25 09:00 09/11/25 09:31 Clopidogrel Bisulfate 75 Mg Tablet PO 75 mg QAM FRANCIS Administration Dextrose 12.5 gm 09/07/25 07:51 Dextrose 50% 25 Gm/50 Ml Syringe IV PUSH PRN PRN Hypoglycemia Protocol Dicyclomine HCl 10 mg 09/10/25 07:24 09/11/25 11:59 Dicyclomine Hcl 10 Mg Capsule PO 10 mg Q8H PRN Administration pain Docusate Sodium 100 mg 09/11/25 21:00 Docusate Sodium 100 Mg Capsule PO Q12HR FRANCIS Glucagon 1 mg 09/07/25 07:51 Glucagon For Inj 1 Mg Vial IM PRN PRN Hypoglycemia Protocol Glucose 15 gm 09/07/25 07:51 Glucose Oral Gel 15 Gm Of Glucse In 37.5 Gm Tube PO PRN PRN Hypoglycemia Protocol Hydralazine HCl 10 mg 09/07/25 07:47 09/08/25 11:51 Hydralazine Hcl 20 Mg/Ml Vial IV PUSH 10 mg Q4H PRN Administration Blood Pressure - High Hydromorphone HCl 0.5 mg 09/08/25 10:30 09/10/25 05:23 Hydromorphone Hcl Inj (*Crx) 1 Mg/Ml Syr IV PUSH 0.5 mg Q3H PRN Administration Pain Rated 7-10 Dextrose 1,000 mls @ 100 mls/hr 09/07/25 07:51 Dextrose 5% 1,000 Ml IVPB PRN PRN Hypoglycemia Protocol Ceftriaxone Sodium 1 gm/ 50 mls @ 100 mls/hr 09/10/25 08:00 09/11/25 09:32 Sodium Chloride IVPB 100 mls/hr Q24H FRANCIS Administration Insulin Aspart 3 - 6 units 09/07/25 12:00 09/11/25 11:53 Insulin Aspart (*Bkc) 100 Units/Ml SUB-Q Not Given Q6HR FRANCIS Protocol Lisinopril 40 mg 09/07/25 09:00 09/11/25 09:32 Lisinopril 20 Mg Tablet PO 40 mg DAILY FRANCIS Administration Metoprolol Tartrate 50 mg 09/07/25 09:00 09/11/25 09:31 Metoprolol Tartrate 50 Mg Tab PO 50 mg Q12HR FRANCIS Administration Pantoprazole Sodium 40 mg 09/09/25 09:00 09/11/25 09:32 Pantoprazole 40 Mg Tablet PO 40 mg QAM FRANCIS Administration Polyethylene Glycol 17 gm 09/11/25 11:35 09/11/25 11:55 Polyethylene Glycol 3350 17 Gm Powd.Pack PO 17 gm QAM FRANCIS Administration Radiology Results: ITS Impressions Chest/Abdomen/Pelvis CTA 09/07/25 06:24 IMPRESSION: 1. Complete collapse of left lung. 2. Small left pleural effusion with pleural thickening. 3. Acute interstitial pancreatitis. 4. Severe stenosis of celiac axis. 5. Stent in left common iliac artery with moderate intrastent stenosis. Abdomen Ultrasound 09/07/25 10:33 IMPRESSION: 1. Hepatomegaly, with steatosis. 2. Gallstones. Chest X-Ray 09/08/25 07:53 IMPRESSION: 1. No gross interval change from yesterday. Complete opacification of the left hemithorax. MRCP 09/09/25 13:31 IMPRESSION: 1. Findings above are suggestive of approximately 6 mm size stone in the distal common bile duct just before the ampulla. 2. Findings about the pancreas consistent with mild pancreatitis. No discrete pancreatic lesion or mass seen. 3. Hepatomegaly with fatty liver changes. 4. Other findings as above. Labs Labs: Laboratory Results - last 24 hr 09/10/25 09/10/25 09/11/25 17:29 19:51 04:19 WBC 12.5 H RBC 4.38 L Hgb 12.9 L Hct 40.5 L MCV 92.5 MCH 29.5 MCHC 31.9 L RDW 14.3 Plt Count 172 MPV 10.2 Sodium 134 L Potassium 3.9 Chloride 100 Carbon Dioxide 28 Anion Gap 6 BUN 11 Creatinine 0.95 Estim Creat Clear Calc 77 Estimated GFR > 60 Glucose 153 H POC Capillary Glucose 140 H 169 H Calcium 9.3 Total Bilirubin 1.3 AST 42 ALT 96 H Alkaline Phosphatase 139 H Total Protein 6.7 Albumin 3.3 L Lipase 639 H 09/11/25 09/11/25 07:25 11:40 WBC RBC Hgb Hct MCV MCH MCHC RDW Plt Count MPV Sodium Potassium Chloride Carbon Dioxide Anion Gap BUN Creatinine Estim Creat Clear Calc Estimated GFR Glucose POC Capillary Glucose 147 H 184 H Calcium Total Bilirubin AST ALT Alkaline Phosphatase Total Protein Albumin Lipase
[2025-09-11] MEDS: HYDROmorphone HCL INJ (*CRX) 1 MG/ML SYR 0.5 MG IV PUSH (20:26)
[2025-09-12] VITALS (10 sets, daily range): BP systolic 136; BP diastolic 62; PULSE 74–115; RESP 12–20; TEMP 36.9; O2SAT 97
[2025-09-12] MEDS: IPRATROPIUM 0.5 MG/ALBUTEROL SULFATE 2.5 MG (BASE) AMPUL.NEB 3 ML INHALATION ×3 (02:00→13:55)
[2025-09-12 04:31] LABS: Hematocrit 37.6 % (42.0-52.0); Hemoglobin 11.8 g/dL (14.0-18.0); Immature Granulocyte Percent A 1.1 % (0-0.5); Lymphocytes Absolute Auto 0.93 K/mm3 (0.9-3.2); Mean Corpuscular HGB Conc 31.4 g/dl (32-36); Mean Corpuscular Hemoglobin 29.3 pg (26-34); Mean Corpuscular Volume 93.3 fl (80-100); Nucleated Red Blood Cells Absolute Auto 0.000 K/mm3 (0.0-0.012); Nucleated Red Blood Cells Perc 0.0 % (0.0-0.2); Platelet Count Result 169 k/mm3 (150-375); Red Blood Count 4.03 M/mm3 (4.6-6.20); White Blood Count 11.5 K/mm3 (4.5-10.0)
[2025-09-12 04:53] LABS: Alanine Aminotransferase 71 U/L (6-50); Albumin Level 3.0 g/dL (3.5-5.1); Alkaline Phosphatase 135 U/L (38-126); Anion Gap 4 mmol/L (4-12); Aspartate Amino Transferase 43 U/L (17-59); Bilirubin,Total 1.0 mg/dL (0.2-1.3); Blood Urea Nitrogen 13 mg/dL (9-20); Calcium 9.0 mg/dL (8.4-10.2); Carbon Dioxide 29 mmol/L (22-30); Chloride 101 mmol/L (98-107); Estimated CRCL calculation 85 ml/min; Estimated Glomerular Filt Rate > 60; Glucose 150 mg/dL (65-110); Lipase 686 U/L (23-300); Magnesium 1.7 mg/dL (1.6-2.3); Potassium 3.7 mmol/L (3.4-5.0); Sodium 134 mmol/L (137-145); Total Protein 6.1 g/dL (6.3-8.2)
[2025-09-12] MEDS: cefTRIAXone 1 GM in SODIUM CHLORIDE 0.9% IV 50 ML 100 ML IVPB (08:28)
[2025-09-12] MEDS: METOPROLOL TARTRATE 50 MG TAB PO (08:29)
[2025-09-12] MEDS: ASPIRIN 81 MG ENTERIC TABLET PO (08:29)
[2025-09-12] MEDS: APIXABAN 5 MG TABLET PO (08:30)
[2025-09-12] MEDS: CLOPIDOGREL BISULFATE 75 MG TABLET PO (08:30)
[2025-09-12] MEDS: PANTOPRAZOLE 40 MG TABLET PO (08:31)
[2025-09-12] MEDS: DOCUSATE SODIUM 100 MG CAPSULE PO (08:31)
--- NOTE | 2025-09-12 14:14 | P.DS_ITS ---
DS: Admitting Diagnosis Discharge Date 09/12/2025 Admitting Diagnosis STEMI/Choledocholithiasis/pancreatitis DS: Discharge Diagnosis Discharge Diagnosis (1) Pancreatitis: Qualifiers: Acute pancreatitis complication: no infection or necrosis Chronicity: acute Pancreatitis type: biliary Qualified Code(s): K85.10 - Biliary acute pancreatitis without necrosis or infection Code(s): K85.90 - Acute pancreatitis without necrosis or infection, unspecified Status: Acute (2) Elevated liver enzymes: Code(s): R74.8 - Abnormal levels of other serum enzymes Status: Acute (3) ST elevation IA (STEMI): Qualifiers: Involved coronary artery: other coronary artery Qualified Code(s): I21.29 - ST elevation (STEMI) myocardial infarction involving other sites Code(s): I21.3 - ST elevation (STEMI) myocardial infarction of unspecified site Status: Acute (4) Acute kidney injury: Code(s): N17.9 - Acute kidney failure, unspecified Status: Acute (5) Collapse of left lung: Code(s): J98.11 - Atelectasis Status: Acute (6) Peripheral vascular disease: Code(s): I73.9 - Peripheral vascular disease, unspecified Status: Acute (7) Atrial fibrillation: Code(s): I48.91 - Unspecified atrial fibrillation Status: Acute (8) COPD (chronic obstructive pulmonary disease): Qualifiers: COPD type: unspecified COPD Qualified Code(s): J44.9 - Chronic obstructive pulmonary disease, unspecified Code(s): J44.9 - Chronic obstructive pulmonary disease, unspecified Status: Acute (9) Coronary artery disease: Code(s): I25.10 - Atherosclerotic heart disease of [place] coronary artery without angina pectoris Status: Acute (10) Diabetes: Code(s): E11.9 - Type 2 diabetes mellitus without complications Status: Acute (11) Essential hypertension: Code(s): I10 - Essential (primary) hypertension Status: Acute (12) Non-small cell lung cancer: Qualifiers: Laterality: unspecified laterality Qualified Code(s): C34.90 - Malignant neoplasm of unspecified part of unspecified bronchus or lung Code(s): C34.90 - Malignant neoplasm of unspecified part of unspecified bronchus or lung Status: Acute (13) Choledocholithiasis: Code(s): K80.50 - Calculus of bile duct without cholangitis or cholecystitis without obstruction Status: Acute DS: Summary Hospital Course Reason for hospitalization: STEMI/Choledocholithiasis/pancreatitis Hospital Course: The patient presented with abdominal pain, nausea, vomiting, and shortness of breath. Initial evaluation revealed?markedly elevated lipase, transaminitis, hyperbilirubinemia, and?inferior STEMI?with troponin peak ?18 ng/mL. Cardiac catheterization demonstrated?100% occlusion of a distal RPL branch?(<2 mm vessel) with moderate left main and LAD disease; no PCI was performed, and the patient was managed medically. Echocardiogram showed?EF 40?45%?with inferior wall akinesis. Abdominal imaging (CTA, RUQ ultrasound, MRCP) confirmed?acute biliary pancreatitis with a ?6 mm distal CBD stone. He was treated with IV fluids, antibiotics for suspected cholangitis (Zosyn transitioned to ceftriaxone), bowel rest, and pain control. Liver enzymes, bilirubin, leukocytosis, renal function, and lipase steadily improved. Given recent STEMI and requirement for?dual antiplatelet therapy and anticoagulation,?ERCP was deferred. GI and surgery recommended?outpatient ERCP and eventual cholecystectomy?once anticoagulation can be safely held. The patient improved clinically, tolerated diet, ambulated without symptoms, and had resolution of abdominal pain. CATHETERIZATION LABORATORY REPORT Procedure Date: 09/07/2025 Findings: LEFT HEART CATHETERIZATION FINDINGS: 1. Left main: The left main coronary artery has diffuse 20-30% stenosis in the proximal to mid body where there was a previously healed dissection. The distal left main coronary artery has 40-50% stenosis. 2. Left anterior descending: The LAD is a large caliber vessel. The ostial LAD has 60-70% stenosis. There is a patent stent in the proximal LAD. The remainder of the LAD has luminal irregularities. The 1st major diagonal branch is a moderate caliber vessel with 30-40% mid stenosis. 3. Left circumflex: The left circumflex artery is a nondominant vessel providing 3 OM branches. OM1 has 20-30% mid stenosis. OM2 is small and insignificant. OM3 has diffuse 10% stenosis. The left circumflex has 10-20% stenosis prior to leading into the OM3 vessel. 4. Right coronary artery: The RCA is a large dominant vessel with patent proximal to mid stents. There is diffuse 105 stenosis throughout the vessel. The rPDA has 50-60% stenosis at its ostium followed by luminal irregularities. The rPL branch gives off 2 branches. 1 of the 2 rPL branches goes on to branch into further smaller vessels, one of which has a thrombus. The contrast eventually clears from this distal vessel. 5. Left ventricle: A. End-diastolic pressure 16 mmHg. B. LV gram shows mildly reduced systolic function with severe hypokinesis of the inferior wall. C. No significant gradient across aortic valve on catheter pullback. 6. Opening AO pressure 145/81 and closing AO pressure 131/70 Assessment: Occluded branch of the rPL Moderate LM and LAD stenosis Systolic cardiomyopathy Plan: After successful removal of TR band, would recommend 48 hours of therapeutic Lovenox. Continue aspirin 81 mg p.o. daily. Start Plavix 75 mg p.o. daily. Obtain echocardiogram. Ian Roy Interventional Cardiology Status at Discharge Functional status at discharge: independent ambulation Overall status at discharge: patient is back to baseline Time Spent with Patient Time attestation: Total time spent providing and/or coordinating discharge services: Time spent: Greater than 30 minutes Exam Narrative: General: Pleasant gentleman, in no acute distress HEENT:? Pupils equal and reactive, sclera icteric, moist oral mucosa Neck:? Supple Respiratory:? Diminished breath sounds bilaterally, no wheeze no respiratory distress Cardiac:? S1-S2 normal, regular rate and rhythm Abdomen:? Soft, nondistended, nontender, normal bowel sounds Extremities:? No edema, Neuro:? Patient is awake, alert, oriented x3, nonfocal Skin:? No skin lesions noted Psych:? Normal mentation and affect DS: Data Data Completed and Pending Labs on day of discharge: Labs from last 24 hours 09/12/25 09/12/25 09/12/25 11:43 08:10 04:12 WBC 11.5 H RBC 4.03 L Hgb 11.8 L Hct 37.6 L MCV 93.3 MCH 29.3 MCHC 31.4 L RDW 14.2 Plt Count 169 MPV 10.2 Immature Gran % (Auto) 1.1 H Neut % (Auto) 76.5 H Lymph % (Auto) 8.1 L [place] % (Auto) 12.4 H Eos % (Auto) 1.6 Baso % (Auto) 0.3 Lymph # (Auto) 0.93 [place] # (Auto) 1.4 H Eos # (Auto) 0.2 Baso # (Auto) 0.0 Abs Immat Gran (auto) 0.13 H Absolute Neuts (auto) 8.8 H Absolute Nucleated RBC 0.000 Nucleated RBC % 0.0 Sodium 134 L Potassium 3.7 Chloride 101 Carbon Dioxide 29 Anion Gap 4 BUN 13 Creatinine 0.98 Estim Creat Clear Calc 85 Estimated GFR > 60 Glucose 150 H POC Capillary Glucose 158 H 193 H Calcium 9.0 Magnesium 1.7 Total Bilirubin 1.0 AST 43 ALT 71 H Alkaline Phosphatase 135 H Total Protein 6.1 L Albumin 3.0 L Lipase 686 H 09/11/25 09/11/25 20:12 16:10 WBC RBC Hgb Hct MCV MCH MCHC RDW Plt Count MPV Immature Gran % (Auto) Neut % (Auto) Lymph % (Auto) [place] % (Auto) Eos % (Auto) Baso % (Auto) Lymph # (Auto) [place] # (Auto) Eos # (Auto) Baso # (Auto) Abs Immat Gran (auto) Absolute Neuts (auto) Absolute Nucleated RBC Nucleated RBC % Sodium Potassium Chloride Carbon Dioxide Anion Gap BUN Creatinine Estim Creat Clear Calc Estimated GFR Glucose POC Capillary Glucose 175 H 164 H Calcium Magnesium Total Bilirubin AST ALT Alkaline Phosphatase Total Protein Albumin Lipase Discharge Plan Discharge Attending physician on discharge: Irvin Romero Consulting providers: Abiel Norwood; Cody Caro; Romaine Szymanski; Man Wolfe; Jt Post; Audra Castle; Beverly Lombardo; Yadira Carrera; Naomi Pierre; Marni Palacios; Chris Chahal; Ad Hartman; Asif Ramirez V.; Juancarlos Torres; Gregorio Guerra Discharging Clinician: Jenise Hollis Anticipated Discharge Date/Time: 09/12/25 14:16 Patient Disposition: Home Activity: january shower Diet: heart healthy Discharge Instructions: 1). STEMI * Continue with Eliquis and clopidogrel * continue lisinopril, amlodipine and metoprolol 2). Paroxysmal atrial fibrillation * Resumed your Eliquis 3). Chronic systolic heart failure- LVEF of 40% * continue guideline directed medical therapy with lisinopril, Metoprolol, empa gliflozin 4). Peripheral arterial disease status post COMPOSITION STONE APPLICATOR stenting * continue aspirin 81 mg p.o. daily 6). Choledocholithiasis * 6 mm in bile duct but ERCP however in setting of recent STEMI with use of plavix and eliquis ERCP will be quite risky. * ERCP will be performed in a outpatient setting once we can hold safely blood thinner for 1-2 days, * will need to see surgery as outpatient as well How can you care for yourself at home? ? Keep track of any new symptoms or changes in your symptoms. ? Rest until you feel better. ? Be safe with medicines. Take your medicines exactly as prescribed. Call your doctor if you think you are having a problem with your medicine. ? Do not drive after taking a prescription pain medicine. ? Ensure to follow-up with primary care physician as indicated and provide updated medication list provided to you at discharge. When should you call for help? Call 911 anytime you think you may need emergency care. For example, call if: ? You passed out (lost consciousness). Call your doctor now or seek immediate medical care if: ? You have new symptoms like fever, difficulty breathing, Chest pain, vomiting, or rash. ? You have new or different pain. ? You are confused and are having trouble thinking clearly. ? Your symptoms are getting worse. Watch closely for changes in your health, and be sure to contact your doctor if: ? You do not get better as expected. Patient Instructions: Antibiotic Form, Clopidogrel (By mouth), Heart Attack (DC), Heart Failure (GEN), Heart Healthy Diet (GEN), Blood Thinners (DC), Blood Thinners (GEN) Patient Language: Bahamian Stand Alone Forms: General Discharge Information Follow-up/Referrals: Ian Roy MD [Physician, Interventional Cardiology] - 10/15/25 Magdalena Boss MD [Physician, Family Practice] Cody Caro MD [Physician, Gastroenterology] - Call for Appointment Antony Smith DO [Physician, General Surgery] - Call for Appointment Referral Note: Need referral from GI Discharge Medications: New clopidogrel 75 mg Tablet 75 mg PO QAM Qty: 30 0RF pantoprazole 40 mg Tablet,Delayed Release (Dr/Ec) 40 mg PO QAM Qty: 30 0RF metoprolol tartrate 50 mg Tablet 50 mg PO Q12HR Qty: 60 0RF amoxicillin-pot clavulanate 875-125 mg tablet 1 tablet PO Q12H Qty: 22 0RF dicyclomine 10 mg capsule 10 mg PO TID PRN (Reason: Abdominal Discomfort) Qty: 30 0RF Continued apixaban 5 mg tablet 5 mg PO BID loratadine 10 mg capsule 10 mg PO DAILY pantoprazole 40 mg tablet,delayed release (DR/EC) 40 mg PO QAM atorvastatin 40 mg tablet 40 mg PO QHS Repatha Syringe 140 mg/mL syringe 140 mg subcut .t4zeriy lisinopril 40 mg tablet 40 mg PO DAILY amlodipine 10 mg tablet 10 mg PO HS Jardiance 25 mg tablet 25 mg PO DAILY ergocalciferol (vitamin D2) 1,250 mcg (50,000 unit) capsule See Rx Instructions .ROUTE .COMPLEX Qty: 12 3RF Dose Instruction: Take 1 capsule by mouth once a week Rx Instructions: Take 1 capsule by mouth once a week Held sildenafil [Viagra] 100 mg tablet See Rx Instructions .ROUTE .COMPLEX PRN (Reason: sexual activity) Qty: 30 2RF Hold Instructions: Resume on 10/15/25. Until cleared by Cardiology Rx Instructions: 50mg po 1 hour before intercourse PRN; Discontinued aspirin 81 mg tablet,delayed release (DR/EC) 81 mg PO DAILY metoprolol succinate 100 mg tablet extended release 24 hr 100 mg PO DAILY Date of admission: 09/07/25 05:39 Primary Care Provider: PHYSICIAN,PRESCHOOL TEACHER'S ASSISTANT Admitting Provider: Ian Roy Attending physician on admission: Jenise Hollis Condition: Improved Quality VTE Prophylaxis VTE prophylaxis: pharmacologic ordered - Patient's previous records reviewed on admission -ER notes reviewed in detail on admission -discussed all findings and current treatment plan with patient/Family/POA -Consultations reviewed for recommendations -Patient's disposition for safe discharge discussed with rn case manager -radiology imaging, EKG and test results I have personally reviewed and interpreted unless otherwise specified Dictation performed by [employer] direct speech recognition software, therefore manager web application variants and typographical errors may occur. Hospitalist MIPS Heart Failure (Exclusion) Patient has history of Heart Transplant or Left Ventricular Assistive Device?: No IF YES, STOP HERE Heart Failure (Qualifier) Patient has current or prior documentation of LVEF less than or equal to 40%, or mod/servere depressed LVSF?: No IF NO, STOP HERE
--- NOTE | 2025-09-12 14:43 | P.PNGI_ITS ---
Progress Note: A&P Assessment and Plan (1) Gallstone pancreatitis: Code(s): K85.10 - Biliary acute pancreatitis without necrosis or infection Status: Acute Assessment and Plan: clinically better, almost normalization of wbc and has been on antibiotics tolerating diet and pain gone noted 6 mm in bile duct but ERCP however in setting of recent STEMI with use of plavix and eliquis ERCP will be quite risky. Since bilirubin has normalized and he is doing clinically better we will prefer to perform ERCP in outpatient setting once we can hold safely blood thinner for 1-2 days, he also will need to see surgery as outpatient because presentation with GS pancreatitis he can go home today (2) Choledocholithiasis: Code(s): K80.50 - Calculus of bile duct without cholangitis or cholecystitis without obstruction Status: Acute Assessment and Plan: no cholangitis, liver enzymes coming down will need ercp but will reevaluate as outpatient and decide best timing to prevent complications no objections to discharge (3) Elevated LFTs: Code(s): R79.89 - Other specified abnormal findings of blood chemistry Status: Acute (4) ST elevation myocardial infarction (STEMI) of inferior wall: Code(s): I21.19 - ST elevation (STEMI) myocardial infarction involving other coronary artery of inferior wall Status: Acute (5) Chronic systolic heart failure: Code(s): I50.22 - Chronic systolic (congestive) heart failure Status: Acute (6) Coronary artery disease: Code(s): I25.10 - Atherosclerotic heart disease of [place] coronary artery without angina pectoris Status: Acute (7) Atrial fibrillation: Code(s): I48.91 - Unspecified atrial fibrillation Status: Acute (8) Elevated WBCs: Code(s): D72.829 - Elevated white blood cell count, unspecified Status: Acute Subjective Date/time seen: 09/12/25 14:43 Interval history: he has been tolerating diet, no pain or nausea he would like to go home today Review of Systems Review of Systems: All systems reviewed & are unremarkable except as noted in HPI and below Exam Narrative: General: Pleasant gentleman, in no acute distress HEENT:? Pupils equal and reactive, moist oral mucosa Neck:? Supple Respiratory:? Diminished breath sounds bilaterally, no wheeze no respiratory distress Cardiac:? S1-S2 normal, regular rate and rhythm Abdomen:? Soft, nondistended, nontender, normal bowel sounds Extremities:? No edema, Neuro:? Patient is awake, alert, oriented x3, nonfocal Skin:? No skin lesions noted Psych:? Normal mentation and affect Objective Data Vital Signs Vital Signs: Vital Signs - 24 hr 09/11/25 16:00 09/11/25 16:00 09/11/25 20:00 Temperature 98.7 F Pulse Rate 95 87 Respiratory Rate 24 H Blood Pressure 140/75 Pulse Oximetry 94 Oxygen Delivery Room Air 09/11/25 20:00 09/11/25 20:18 09/11/25 20:26 Temperature Pulse Rate 89 77 79 Respiratory Rate 18 18 Blood Pressure Pulse Oximetry Oxygen Delivery 09/11/25 20:28 09/11/25 20:33 09/11/25 23:42 Temperature 98.6 F 97.9 F Pulse Rate 94 91 81 Respiratory Rate 24 H 22 H Blood Pressure 124/66 127/67 Pulse Oximetry 96 95 Oxygen Delivery 09/12/25 00:00 09/12/25 02:00 09/12/25 02:09 Temperature Pulse Rate 78 77 82 Respiratory Rate 18 18 Blood Pressure Pulse Oximetry Oxygen Delivery 09/12/25 07:28 09/12/25 07:34 09/12/25 08:00 Temperature Pulse Rate 99 84 Respiratory Rate 18 18 Blood Pressure Pulse Oximetry Oxygen Delivery Room Air 09/12/25 08:00 09/12/25 08:00 09/12/25 08:29 Temperature 98.4 F Pulse Rate 115 H 104 H 96 Respiratory Rate 12 Blood Pressure 136/62 Pulse Oximetry 97 Oxygen Delivery 09/12/25 12:00 09/12/25 13:55 09/12/25 14:04 Temperature Pulse Rate 74 83 Respiratory Rate 18 20 Blood Pressure Pulse Oximetry Oxygen Delivery Intake/Output Intake/Output: Intake & Output 09/09/25 09/10/25 09/11/25 09/12/25 23:59 23:59 23:59 23:59 Intake Total 3639.9 2723.0 2170 170 Output Total 2850 2850 1475 Balance 789.9 -127.0 695 170 Meds/Results Medications: Active Medications Generic Name Dose Route Start Last Admin Trade Name Freq PRN Reason Stop Dose Admin Albuterol/Ipratropium 3 ml 09/07/25 14:00 09/12/25 13:55 Ipratropium 0.5 Mg/Albuterol Sulfate 2.5 Mg (Base) Ampul.Neb 3 Ml INHALATION 3 ml Q6HRT FRANCIS Administration Amlodipine Besylate 10 mg 09/07/25 09:00 09/12/25 08:30 Amlodipine Besylate 10 Mg Tablet PO 10 mg DAILY FRANCIS Administration Apixaban 5 mg 09/10/25 10:15 09/12/25 08:30 Apixaban 5 Mg Tablet PO 5 mg Q12HR FRANCIS Administration Aspirin 81 mg 09/11/25 09:00 09/12/25 08:29 Aspirin 81 Mg Enteric Tablet PO 09/13/25 23:59 81 mg QAM FRANCIS Administration Clopidogrel Bisulfate 75 mg 09/07/25 09:00 09/12/25 08:30 Clopidogrel Bisulfate 75 Mg Tablet PO 75 mg QAM FRANCIS Administration Dextrose 12.5 gm 09/07/25 07:51 Dextrose 50% 25 Gm/50 Ml Syringe IV PUSH PRN PRN Hypoglycemia Protocol Dicyclomine HCl 10 mg 09/10/25 07:24 09/11/25 11:59 Dicyclomine Hcl 10 Mg Capsule PO 10 mg Q8H PRN Administration pain Docusate Sodium 100 mg 09/11/25 21:00 09/12/25 08:31 Docusate Sodium 100 Mg Capsule PO 100 mg Q12HR FRANCIS Administration Glucagon 1 mg 09/07/25 07:51 Glucagon For Inj 1 Mg Vial IM PRN PRN Hypoglycemia Protocol Glucose 15 gm 09/07/25 07:51 Glucose Oral Gel 15 Gm Of Glucse In 37.5 Gm Tube PO PRN PRN Hypoglycemia Protocol Hydralazine HCl 10 mg 09/07/25 07:47 09/08/25 11:51 Hydralazine Hcl 20 Mg/Ml Vial IV PUSH 10 mg Q4H PRN Administration Blood Pressure - High Hydromorphone HCl 0.5 mg 09/08/25 10:30 09/11/25 20:26 Hydromorphone Hcl Inj (*Crx) 1 Mg/Ml Syr IV PUSH 0.5 mg Q3H PRN Administration Pain Rated 7-10 Dextrose 1,000 mls @ 100 mls/hr 09/07/25 07:51 Dextrose 5% 1,000 Ml IVPB PRN PRN Hypoglycemia Protocol Ceftriaxone Sodium 1 gm/ 50 mls @ 100 mls/hr 09/10/25 08:00 09/12/25 09:00 Sodium Chloride IVPB Infused Q24H [facility] Infusion Insulin Aspart 3 - 6 units 09/07/25 12:00 09/12/25 12:08 Insulin Aspart (*Bkc) 100 Units/Ml SUB-Q Not Given Q6HR [facility] Protocol Lisinopril 40 mg 09/07/25 09:00 09/12/25 08:29 Lisinopril 20 Mg Tablet PO 40 mg DAILY FRANCIS Administration Metoprolol Tartrate 50 mg 09/07/25 09:00 09/12/25 08:29 Metoprolol Tartrate 50 Mg Tab PO 50 mg Q12HR FRANCIS Administration Pantoprazole Sodium 40 mg 09/09/25 09:00 09/12/25 08:31 Pantoprazole 40 Mg Tablet PO 40 mg QAM FRANCIS Administration Polyethylene Glycol 17 gm 09/11/25 11:35 09/12/25 08:32 Polyethylene Glycol 3350 17 Gm Powd.Pack PO Not Given QAM [facility] Radiology Results: ITS Impressions Chest/Abdomen/Pelvis CTA 09/07/25 06:24 IMPRESSION: 1. Complete collapse of left lung. 2. Small left pleural effusion with pleural thickening. 3. Acute interstitial pancreatitis. 4. Severe stenosis of celiac axis. 5. Stent in left common iliac artery with moderate intrastent stenosis. Abdomen Ultrasound 09/07/25 10:33 IMPRESSION: 1. Hepatomegaly, with steatosis. 2. Gallstones. Chest X-Ray 09/08/25 07:53 IMPRESSION: 1. No gross interval change from yesterday. Complete opacification of the left hemithorax. MRCP 09/09/25 13:31 IMPRESSION: 1. Findings above are suggestive of approximately 6 mm size stone in the distal common bile duct just before the ampulla. 2. Findings about the pancreas consistent with mild pancreatitis. No discrete pancreatic lesion or mass seen. 3. Hepatomegaly with fatty liver changes. 4. Other findings as above. Labs Labs: Laboratory Results - last 24 hr 09/11/25 09/11/25 09/12/25 16:10 20:12 04:12 WBC 11.5 H RBC 4.03 L Hgb 11.8 L Hct 37.6 L MCV 93.3 MCH 29.3 MCHC 31.4 L RDW 14.2 Plt Count 169 MPV 10.2 Immature Gran % (Auto) 1.1 H Neut % (Auto) 76.5 H Lymph % (Auto) 8.1 L [place] % (Auto) 12.4 H Eos % (Auto) 1.6 Baso % (Auto) 0.3 Lymph # (Auto) 0.93 [place] # (Auto) 1.4 H Eos # (Auto) 0.2 Baso # (Auto) 0.0 Abs Immat Gran (auto) 0.13 H Absolute Neuts (auto) 8.8 H Absolute Nucleated RBC 0.000 Nucleated RBC % 0.0 Sodium 134 L Potassium 3.7 Chloride 101 Carbon Dioxide 29 Anion Gap 4 BUN 13 Creatinine 0.98 Estim Creat Clear Calc 85 Estimated GFR > 60 Glucose 150 H POC Capillary Glucose 164 H 175 H Calcium 9.0 Magnesium 1.7 Total Bilirubin 1.0 AST 43 ALT 71 H Alkaline Phosphatase 135 H Total Protein 6.1 L Albumin 3.0 L Lipase 686 H 09/12/25 09/12/25 08:10 11:43 WBC RBC Hgb Hct MCV MCH MCHC RDW Plt Count MPV Immature Gran % (Auto) Neut % (Auto) Lymph % (Auto) [place] % (Auto) Eos % (Auto) Baso % (Auto) Lymph # (Auto) [place] # (Auto) Eos # (Auto) Baso # (Auto) Abs Immat Gran (auto) Absolute Neuts (auto) Absolute Nucleated RBC Nucleated RBC % Sodium Potassium Chloride Carbon Dioxide Anion Gap BUN Creatinine Estim Creat Clear Calc Estimated GFR Glucose POC Capillary Glucose 193 H 158 H Calcium Magnesium Total Bilirubin AST ALT Alkaline Phosphatase Total Protein Albumin Lipase
== END 2025-09-12 15:44 | disposition home or self-care (01) | DRG 280 ==
LOC: ANHED 03:05 → ANHCATHLAB 04:19 → ANHICU 05:40 → ANHIMU 09-08 14:02
PROVIDERS: General Practice; Internal Medicine; Internal Medicine Gastroenterology; Internal Medicine Interventional Cardiology; Admitting Provider Internal Medicine; Emergency Provider Student in an Organized Health Care Education/Training Program; Visit Provider Nurse Practitioner Family
PROC: 4A023N7 Measurement of Cardiac Sampling and Pressure, Left Heart, Percutaneous Approach (ICD-10-PCS; CPT 93452; principal; 2025-09-07 04:20)
DX: I21.19 ST elevation (STEMI) myocardial infarction involving other coronary artery of inferior wall (principal); K85.10 Biliary acute pancreatitis without necrosis or infection; I13.0 Hypertensive heart and chronic kidney disease with heart failure and stage 1 through stage 4 chronic kidney disease, or unspecified chronic kidney disease; I50.22 Chronic systolic (congestive) heart failure; I48.20 Chronic atrial fibrillation, unspecified; J98.11 Atelectasis; I42.9 Cardiomyopathy, unspecified; N17.9 Acute kidney failure, unspecified; I25.10 Atherosclerotic heart disease of native coronary artery without angina pectoris; I77.1 Stricture of artery; I73.9 Peripheral vascular disease, unspecified; K80.70 Calculus of gallbladder and bile duct without cholecystitis without obstruction; N18.9 Chronic kidney disease, unspecified; Z85.118 Personal history of other malignant neoplasm of bronchus and lung; Z95.5 Presence of coronary angioplasty implant and graft; Z79.01 Long term (current) use of anticoagulants; Z79.82 Long term (current) use of aspirin; Z87.891 Personal history of nicotine dependence; Z95.820 Peripheral vascular angioplasty status with implants and grafts
CPT/HCPCS: 36415; 71045; 71275; 74174; 74183; 76376; 76705; 80048; 80053; 80061; 80074; 82077; 82948; 83605; 83690; 83735; 84100; 84145; 84484; 85025; 85027; 85610; 85730; 86140; 87641; 93005; 93458; 94640; 99285; A9270; A9577; C1769; C1887; C1894; C8929; J0360; J0696; J1171; J1644; J2003; J2250; J2305; J2470; J2543; J3010; J3475; J7030; J7040; J7120; J7639; Q9957; Q9967